=== PATIENT | male | born 1930 | race Caucasian/White ===

== ENCOUNTER 2016-10-22 10:28 | Inpatient (IN) | payer OTHER, MEDICAID ==
--- NOTE | 2016-10-22 10:53 | ED Physician Chart ---
Chief Complaint/HPI - Patient Information Date Seen:: 10/22/16 Time Seen:: 10:40 Chief Complaint:: GENERALIZED WEAKNESS AND NOW UNABLE TO WALK. History of Present Illness:: HPI: PATIENT HAD ONSET OF GENERALIZED WEAKNESS THAT HAS TAKEN HIM FROM AMBULATORY WITHOUT ASSISTANCE to unable to walk. The started yesterday. He has no prior history of weakness that comes on with exertion. He reports he has had a cough which is nonproductive and he denies hemoptysis. The patient had a pulse ox in the mid 80 when brought in. It responded nicely to supplemental oxygen into the high 90% range. the patient complains of mild respiratory distress prior to being placed on oxygen. he denies any chest pain or peripheral edema. No prior history of heart disease. Allergies:: Allergies Allergy/AdvReac Type Severity Reaction Status Date / Time beta blockers Allergy Unknown Uncoded 10/14/15 09:06 Review of Systems - Review of Systems General/Constitutional: No fever, No chills, Weakness, No diaphoresis, Loss of appetite Skin: No skin lesions, No rash Head: No headache, No light-headedness Eyes: No loss of vision, No pain, No diplopia ENT: No earache, No sore throat, No tinnitus, Other (NO TEETH) Neck: No neck pain, No swelling, No stiffness, No mass noted Cardio Vascular: No chest pain, No palpitations, orthopnea, No edema Pulmonary: SOB, Cough, No sputum, No wheezing, Other (NO HEMOPTYSIS) GI: No nausea, No vomiting, No diarrhea, No pain, No hematemesis G/U: No dysuria, No frequency, No hematuria, Other (NO URINARY RETENSION) Musculoskeletal: Bone or joint pain (the pt has intermittant pain in both legs but none at this time. Pain was present when pt able to walk.), No muscle pain Psychiatric: No prior psych history, No depression, Suicidal ideation Hematopoietic: No bruising, Lymphadenopathy Allergic/Immuno: No urticaria, No angioedema Neurological: No syncope, No focal symptoms, Weakness, No paresthesia, No headache, No seizure, Dizziness, No confusion, No vertigo Past Medical History - Past Medical History Past Medical History: HTN, Other (NO HX OF DIABETES, HEART DISEASE, OR ELEVATED CHOLESTEROL. 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 Head: Atraumatic Eyes: Lids, conjuctiva normal, PERRL, EOMI Other Eyes comments:: NO NYSTAGMUS. BILATERAL CATARACTS. SCLERA ANICTERIC. CONJUNTIVA PALE. Skin: No rash, No skin lesions, No ecchymosis, Well hydrated, No lymphadenopathy ENMT: External ears, nose nl, Nasal exam nl Other ENMT comments:: EDENTULOUS WITHOUT PLATES. UVULA DEVIATES TO THE RIGHT. NO PHARYNGITIS. Neck: Nontender, Full ROM w/o pain, No JVD, No nuchal rigidity, No bruit, No mass, No stridor Other Respiratory comments:: INCREASED RESPIRATORY EFFORT. DIFFUSE EXPIRATORY WHEEZES AND BIBASILAR RALES. Other Cardio Vascular comments:: IRREGULARLY IRREGULAR RHYTHM. NO MURMURS, GALLOPS OR RUBS. HEART TONES ARE OF GOOD QUALITY. STRONG PULSES IN ALL 4 EXTREMITIES. NO EDEMA IN LEGS OR ANKLES. GI: No tenderness/rebounding/guarding, No organomegaly, No hernia, Normal BS's, Nondistended, No mass/bruits, No McBurney tenderness Other GI comments:: RECTAL EXAM DIFFERED AT MY DISCRETION. Labs/Radiology/EKG Results - Lab Results Results: SINGLE VIEW AP CXR: MILD CARDIOMEGALY. BILATERAL PATCHY INFILTRATES. NO PNEUMOTHORAX. RADIOLOGY READ OUT CONSISTANT WITH CHF. Laboratory Tests 10/22/16 10/22/16 10/22/16 10:55 10:55 10:55 WBC 7.9 D RBC 3.43 L Hgb 7.1 L* Hct 23.1 L* D MCV 67.2 L MCH 20.8 L MCHC Differential 30.9 RDW 17.3 Plt Count 332 D MPV 9.0 Band Neutrophils % 2 Neutrophils (Manual) 58 Lymphocytes 15 L Monocytes 24 H Metamyelocytes 1 H Platelet Estimate ADEQUATE Platelet Morphology GIANT PLATELETS SEEN Polychromasia 1+ Anisocytosis 1+ Microcytosis 3+ RBC Morph Micro Appear ABNORMAL Sodium 141 Potassium 4.3 Chloride 105 Carbon Dioxide 25.0 Anion Gap 15.3 BUN 32 H Creatinine 1.3 Est GFR ( Amer) TNP Est GFR (Non-Af Amer) TNP BUN/Creatinine Ratio 24.6 Glucose 112 H Whole Bld Lactic Acid Calcium 9.3 Total Bilirubin 0.5 AST 21 ALT 11 Alkaline Phosphatase 26 L Troponin I 0.36 H* B-Natriuretic Peptide Total Protein 7.6 Albumin 3.7 L Globulin 3.9 Albumin/Globulin Ratio 1.0 10/22/16 10/22/16 10:55 10:55 WBC RBC Hgb Hct MCV MCH MCHC Differential RDW Plt Count MPV Band Neutrophils % Neutrophils (Manual) Lymphocytes Monocytes Metamyelocytes Platelet Estimate Platelet Morphology Polychromasia Anisocytosis Microcytosis RBC Morph Micro Appear Sodium Potassium Chloride Carbon Dioxide Anion Gap BUN Creatinine Est GFR ( Amer) Est GFR (Non-Af Amer) BUN/Creatinine Ratio Glucose Whole Bld Lactic Acid 1.51 Calcium Total Bilirubin AST ALT Alkaline Phosphatase Troponin I B-Natriuretic Peptide 1030.0 H Total Protein Albumin Globulin Albumin/Globulin Ratio LABORATORY INTERPRETATION: the CBC shows that the patient has a marked anemia. Hemoglobin level of 7.1. The whole blood lactic acid is within the normal range. The troponin is significantly elevated at 0.32. The BNP is markedly elevated at 1030. These findings are consistent with congestive heart failure. - EKG Interpretations EKG Time:: 10:42 Rhythm: Atrial fibrillation [place]: Right axis deviation Rate: 106 ventricular Comments:: wide QRS DURATION OF115. NORMAL QT INTERVAL. LBBB. POOR R-WAS PROGRESSION AND Q -WAVE IN V2. IMPRESSION Assessment - Assessment General Assessment: CASE SUMMARY: this 86-year-old male presents with generalized weakness that has taken him from being ambulatory to being unable to stand without assistance. Initially I thought the patient might have Guillain-Rogers syndrome. The initial pulse oximetry was in the mid-80 range and the patient was complaining of mild respiratory distress. This was addressed with supplemental oxygen and the pulse ox went up into the I high 90 range. On physical examination the patient appeared very pale and laboratory studies show the hemoglobin was in the seven range. The initial chest x-ray showed cardiomegaly and bilateral patchy infiltrates. Patient was given antibiotics thinking that he had bilateral pneumonia. When the radiology report came out it was read as consistent with congestive failure. Normal saline was canceled and a BNP and troponin level set off. The BNP was over 1000 and the component was markedly elevated also. EKG showed atrial fibrillation which the patient has not had in the past. DR. Smith, The patient's primary care physician was contacted and he will admit the patient to a telemetry bed for treatment of new onset atrial fibrillation, congestive failures, cardiac ischemia and severe anemia. Admitted in stable condition. MDM DDX GENERALIZED WEAKNESS: NOT GUILLAIN-BARRE SYNDROME based on the alternate diagnosis of cardiac ischemia and CHF. and severe anemia. NOT severe electrolyte disorder based on lab results. NOT CVA based on no focal neurologic deficit pattern. NOT severe sepsis based on vital signs and no fever or source of infection ED Septic Shock - . Is Septic Shock (SBP<90, OR Lactate>4 mmol\L) present?: No Reassessment (Disposition) - Reassessment Reassessment Condition:: Improved - Diagnosis Diagnosis:: SEVERE ANEMIA. NEW ONSET ATRIAL FIBRILLATION. CHF. CARDIAC ISCHEMIA - Aftercare/Follow up Instructions Aftercare/Follow-Up Instructions:: Counseled pt regarding lab results/diagnosis & need follow up - Patient Disposition Discharge/Transfer:: Acute Care w/in this hosp Accepting Physician:: DR. RAMON ED Discharge Plan - Patient Disposition Admit/Discharge/Transfer: Acute Care w/in this hosp Condition at Disposition: Stable
--- NOTE | 2016-10-22 11:17 | Diagnostic Imaging Report ---
Portable chest x-ray HISTORY: Shortness of breath The heart is enlarged. There is pulmonary vascular redistribution consistent cardiac captation. Hazy infiltrate noted in the left lung and right lower lobe regions. Findings are consistent with congestive heart failure and mild edema. Evidence of a small right pleural effusion. IMPRESSION: 1. Cardiomegaly with evidence of congestive heart failure and mild edema. Clinical correlation is needed.
[2016-10-22] MEDS ORDERED: Levofloxacin 750mg/150mL 750 MG/150 ML BAG IV ONE ×2 (11:18→12:31)
[2016-10-22] MEDS ORDERED: cefTRIAXone 2 GM in Sodium Chloride 0.9% 100 ML IV ONE (11:19)
[2016-10-22] MEDS ORDERED: SODIUM CHLORIDE 0.9% IV ONE (11:20)
[2016-10-22 11:21] LABS: ALKALINE PHOSPHATASE 26 U/L (34-104); ANION GAP 15.3 (7.0-16.0); BILIRUBIN,TOTAL 0.5 mg/dL (0.3-1.0); BUN - UREA NITROGEN 32 mg/dL (7-25); BUN/CREATININE RATIO 24.6; CALCIUM SERUM 9.3 mg/dL (8.6-10.3); CHLORIDE 105 mEq/L (98-107); CREATININE - SERUM 1.3 mg/dL (0.7-1.3); GLUCOSE 112 mg/dL (70-105); POTASSIUM SERUM 4.3 mEq/L (3.5-5.1); SGOT 21 U/L (13-39); SGPT/ALT 11 U/L (7-52); SODIUM SERUM 141 mEq/L (136-145)
[2016-10-22 11:22] LABS: HEMATOCRIT 23.1 % (39.0-49.0); HEMOGLOBIN 7.1 gm/dL (12.6-17.4); RED BLOOD COUNT 3.43 Mil/cmm (3.80-5.80); WHITE BLOOD COUNT 7.9 Th/cmm (4.8-10.8)
[2016-10-22 11:23] LABS: MEAN CELL VOLUME 67.2 fl (80-99); MEAN CORPUSCULAR HEMOGLOBIN 20.8 pg (27.0-31.0); MEAN CORPUSCULAR HGB CONC 30.9 pg (28.0-36.0); PLATELET COUNT 332 Th/cmm (150-400); RED CELL DISTRIBUTION WIDTH 17.3 % (11.5-20.0)
[2016-10-22 11:33] LABS: ANISOCYTOSIS 1+; BAND NEUTROPHILE 2 % (0-10); METAMYELOCYTE 1 % (0-0); MICROCYTOSIS 3+; NEUTROPHILS 58 % (40-80); PLATELET ESTIMATE ADEQUATE (NORMAL); PLATELET MORPHOLOGY GIANT PLATELETS SEEN (NORMAL); POLYCHROMASIA 1+; TOTAL CELLS COUNTED 100
[2016-10-22] MEDS ORDERED: Albuterol/Ipratropium Neb 3 ML AERS HHN ONE ×3 (13:25→21:50)
[2016-10-22] MEDS ORDERED: Aspirin 81mg Chewable Tab PO ONE (13:48)
[2016-10-22] MEDS ORDERED: Aspirin 81mg Chewable Tab ONE (14:00)
[2016-10-22] MEDS ORDERED: Pneumococcal Vaccine 0.5 mL Vial IM ONE (18:00)
[2016-10-22 19:20] LABS: HEMATOCRIT 23.1 % (40.0-54.0); RBC RETICULOCYTE COUNT 3.43 Mil/cmm
[2016-10-22 19:21] LABS: RETICULOCYTES % COUNTED 5.8 % (0.5-1.5)
[2016-10-22] MEDS: Levofloxacin 500mg/100mL 500 MG/100 ML BAG IV SCH (21:42)
[2016-10-22] MEDS ORDERED: Budesonide 0.5 Mg/2 mL Ud HHN ONE (21:53)
[2016-10-22] MEDS: Budesonide 0.5 Mg/2 mL Ud HHN SCH (22:32)
[2016-10-22] MEDS ORDERED: Albuterol/Ipratropium Neb 3 ML AERS HHN PRN (23:27)
--- NOTE | 2016-10-22 23:34 | Consultation ---
The patient of Dr. Ross. HISTORY AND PHYSICAL: This is an 86-year-old male patient who has been complaining of shortness of breath, cough with expectoration. Following this, patient was brought to the Emergency Room. The patient has elevated BNP level. Hence Cardiology consult was requested. PAST MEDICAL HISTORY: Atrial fibrillation, congestive heart failure, non-STEMI myocardial infarction, iron deficiency anemia, hypothyroidism, BPH, hypertension, hyperlipidemia. FAMILY HISTORY: Unremarkable. SOCIAL HISTORY: No history of smoking, alcohol abuse. ALLERGIES: No known allergies. PHYSICAL EXAMINATION: VITAL SIGNS: Blood pressure 130/80, pulse 88 irregular, respirations 28, temperature 98 year. LUNGS: Wheezing and rhonchi. HEART: Irregular rhythm. S1 irregular. S2, S3, S4. ABDOMEN: Soft. Liver, spleen not palpable. No hepatojugular ____. RECTAL: Prostate enlarged. EXTREMITIES: No pedal edema. ASSESSMENT: Atrial fibrillation, congestive heart failure, diastolic dysfunction, non-STEMI myocardial infarction, iron deficiency anemia, hypothyroidism, benign prostatic hypertrophy, hypertension, hyperlipidemia. PLAN: The patient to get echocardiogram, troponin level and monitor and start the patient on Lasix and Coreg. JOB# [id number]
--- NOTE | 2016-10-23 00:49 | Consultation ---
REASON FOR CONSULTATION: Help patient with hypoxemia. CONSULT NOTE: This is an 86-year-old gentleman living in a board and care relatively good health up to a couple of days ago. He was up and waling around without much of a problem. Subsequently, a day prior to coming to the hospital, the patient was extremely weak and started having some shortness of breath. Subsequently, symptom persisted and patient came to the hospital for further evaluation and necessary treatment. The patient had some productive sputum and nonproductive sputum, no complaints of wheezing or any fever or chills, fever prior to coming to the hospital. PAST MEDICAL HISTORY: History of hypertension, otherwise unremarkable. ALLERGIES: TO SOME FORM OF BETA GILDA. SMOKING HISTORY: Almost about 47-69-xssd-year smoker, has not smoked since 1989. PHYSICAL EXAMINATION: GENERAL: This is an elderly looking than stated age gentleman, awake, very slow, not in any acute distress. VITAL SIGNS: The patient's temperature is 99.4, blood pressure is 110/70, heart rate is 80, appears to be irregular. HEENT: Examination of the head is essentially unremarkable. Pupils appear to be equal and reacting to light. Conjunctivae are slightly pallor. Oral cavity shows edentulous with small oropharyngeal opening. NECK: No nodes in the neck could be palpated. CHEST: Shows occasional rhonchi with generalized diminished air entry. HEART: Regular. ABDOMEN: Soft, nontender. EXTREMITIES: Shows slight trace of peripheral edema, otherwise unremarkable. Chest x-ray shows fullness bilaterally. LABORATORY DATA: The patient's pertinent laboratory studies other studies shows hemoglobin 7.1, white count 7.9 and electrolytes are okay with BUN 32 and alkaline phosphatase is 26, troponin is 0.36. IMPRESSION: 1.The patient's shortness of breath, most likely this is an early congestive heart failure though ____ not sure whether that could be one of the major problem. 2. Other ____ weakness is secondary to gastrointestinal loss or blood loss. 3.Associated with possibly viral syndrome with questionable underlying chronic obstructive pulmonary disease. PLANS AND SUGGESTIONS: I agree with transfusion. We will give aggressive inhalation treatment, supplement O2. We will get a CT of chest for better evaluation and see how he does in the next 24-48 hours and go from there. JOB# [id number]
[2016-10-23 01:02] LABS: pH 7.32 (7.35-7.45)
[2016-10-23 01:03] LABS: ABG SOURCE art; ALLEN TEST P; BE(B) -0.4 mmol/L (-3.0-3.0); HCO3 26.3 mmol/L (20.0-26.0)
[2016-10-23 01:04] LABS: FIO2 40; MECH RATE 12; MECH VT 350
--- NOTE | 2016-10-23 04:13 | Admit Criteria Form ---
Admit Criteria Forms - Admit Criteria Diagnosis: TELEMETRY CARE Telemetry Admission Guidelines (Place 'X' for any and all applicable criteria): Admission to telemetry [A] may be indicated for ANY ONE of the following(1)(2)(3 )(4)(5): [X ]I. Cardiac disease, including ANY ONE of the following (9)(10)(11)(12)( 13): [ ]a) Postacute HI [ ]b) Low-risk patients with ST-segment elevation HI who have undergone successful percutaneous coronary intervention [ ]c) Unstable angina [ ]d) Suspected HI (until it is ruled out) [ ]e) Post cardiac surgery (first 48 to 72 hours unless complications occur) [X ]f) Acute arrhythmias (including significant tachycardia or bradycardia) [B] [ ]g) Firing of an implantable cardioverter defibrillator [C] [ ]h) Suspected pacemaker or implantable cardioverter defibrillator malfunction (10) [ ]i) New administration or adjustment of an antiarrhythmic drug [D ] [ ]j) Child admitted for acute congestive heart failure [ ]j) Long QT syndrome [ ]k) Advanced heart block (eg, second-degree Mobitz type II, third- degree heart block) [ ]l) Acute myocarditis or pericarditis [ ]m) Short-term (ambulatory or inpatient) monitoring after a cardiac procedure as indicated by ANY ONE of the following [E]: [ ]i) Electrophysiologic studies [ ]ii) Percutaneous coronary intervention with stent placement [ ]iii) Pacemaker placement with cardiac conduction defect [ ]iv) Implantable cardiac defibrillator placement [ ]II. Drug overdose or poisoning with substance that causes arrhythmias or QT prolongation (eg, phenothiazines, sympathomimetic agents, cyclic antidepressants, digitalis, antiarrhythmic drugs)(15) [ ]III. Short-term (ambulatory or inpatient) monitoring after therapeutic or diagnostic procedure requiring conscious sedation or anesthesia (eg, endoscopy, elective cardioversion) [ ]IV. Acute cerebrovascular even[F](18) [ ]V. Massive blood transfusion (eg, at least 10 units of packed red blood cells in 24 hours) [ ]. Variceal bleeding after endoscopy, sclerotherapy, or IV vasopressin [ ]VII. Uncorrected electrolyte abnormalities associated with an increased risk of dangerous arrhythmia [G]; examples include [ ]a) Hyperkalemia with attributable ECG changes [ ]b) Potassium greater than 6.5 mmol/L (mEq/L) in a patient without history of chronic renal disease [ ]c) Prolonged QT attributed to hypokalemia, hypomagnesemia, or hypocalcemia [ ]VIII.Unexplained syncope or other neurologic event suspected of being due to arrhythmia due to a finding that increases risk; examples include(19)(20)(21): [ ]a) High-risk ECG findings (eg, bifascicular block, bradycardia, abnormal QT interval, ventricular pre- excitation) [ ]b) History of previous syncope due to arrhythmia [ ]c) Abnormal ventricular function (eg, reduced ejection fraction ) [ ]d) Exertional or supine syncope [ ]e) Concerning syncope characteristics (eg, sudden loss of consciousness without prodrome) [ ]f) Family history of sudden [ ]g) Use of arrhythmogenic medication [ ]h) Suspected cardiac ischemia [ ]i) Known channelopathy (eg, long QT syndrome, Brugada syndrome, or catecholaminergic paroxysmal ventricular tachycardia) [ ]j) Known structural heart disease (eg, hypertrophic cardiomyopathy , severe valvular disease) [ ]k) Palpitations preceding syncope The original [employer] content created by [employer] has been revised. The portions of the content which have been revised are identified through the use of italic text or in bold, and [employer] has neither reviewed nor approved the modified material. All other unmodified content is copyright [employer]. Please see references footnoted in the original [employer] edition 2016 Admit Criteria Met?: Yes
[2016-10-23] MEDS ORDERED: Albuterol/Ipratropium Neb 3 ML AERS HHN SCH (07:00)
[2016-10-23 07:54] LABS: INR 1.29 (0.5-1.4)
[2016-10-23 07:58] LABS: ALB/GLOB RATIO 0.9 (1.0-1.8); BILIRUBIN,DIRECT 0.1 mg/dL (0.0-0.2); BILIRUBIN,TOTAL 0.7 mg/dL (0.3-1.0); MAGNESIUM 2.2 mg/dL (1.9-2.7)
[2016-10-23 08:01] LABS: ANION GAP 27.5 (7.0-16.0); BUN - UREA NITROGEN 35 mg/dL (7-25); CALCIUM SERUM 9.1 mg/dL (8.6-10.3); CARBON DIOXIDE 24.3 mEq/L (21.0-31.0); CHLORIDE 101 mEq/L (98-107); CREATININE - SERUM 1.4 mg/dL (0.7-1.3); GLUCOSE 125 mg/dL (70-105); POTASSIUM SERUM 4.8 mEq/L (3.5-5.1); SODIUM SERUM 148 mEq/L (136-145)
[2016-10-23 08:09] LABS: IRON SATURATION 2 % (15-55); TIBC (LCI) 541 ug/dL (250-450); UIBC 529 ug/dL (111-343)
[2016-10-23 08:24] LABS: MEAN CELL VOLUME 73.2 fl (80-99); MEAN CORPUSCULAR HEMOGLOBIN 23.5 pg (27.0-31.0); MEAN PLATELET VOLUME 9.1 fl; PLATELET COUNT 315 Th/cmm (150-400); RED BLOOD COUNT 4.39 Mil/cmm (3.80-5.80); RED CELL DISTRIBUTION WIDTH 20.3 % (11.5-20.0)
[2016-10-23 08:31] LABS: HEMATOCRIT 32.2 % (39.0-49.0); HEMOGLOBIN 10.3 gm/dL (12.6-17.4); WHITE BLOOD COUNT 11.6 Th/cmm (4.8-10.8)
[2016-10-23 09:15] LABS: ABG SOURCE Arterial; BE(B) -1.2 mmol/L (-3.0-3.0); HCO3 26.6 mmol/L (20.0-26.0); pH 7.27 (7.35-7.45)
[2016-10-23 09:16] LABS: CRITICAL VALUES REPORTED BY SH; FIO2 50; MECH RATE 12; MECH VT 350
[2016-10-23 10:15] LABS: FOLIC ACID >20.0 ng/mL (>3.0)
--- NOTE | 2016-10-23 10:30 | Diagnostic Imaging Report ---
Portable chest x-ray HISTORY: Shortness of breath Compared with the prior exam of October 22, 2016, the heart remains enlarged. Increasing density/infiltrate seen in the left lung. Small left pleural effusion cannot be excluded. Findings may be associated with congestive heart failure and edema. However, pneumonia cannot be excluded. Clinical correlation is needed. IMPRESSION: 1. Increasing density within the left lung that may be associated with congestive heart failure and edema. Pneumonia cannot be excluded. Clinical correlation is needed.
[2016-10-23 10:57] LABS: BAND NEUTROPHILE 2 % (0-10); NEUTROPHILS 91 % (40-80); TOTAL CELLS COUNTED 100
[2016-10-23 10:58] LABS: ANISOCYTOSIS 1+; CORRECTED WBC 11.2 Th/cmm; MICROCYTOSIS 3+; MYELOCYTE 3 %; PLATELET ESTIMATE ADEQUATE (NORMAL); PLATELET MORPHOLOGY GIANT PLATELETS SEEN (NORMAL); POLYCHROMASIA 1+
[2016-10-23] MEDS: Diltiazem 5 mg/mL 5mL Vial IVP PRN ×2 (11:01→16:39)
[2016-10-23] MEDS: Albuterol/Ipratropium Neb 3 ML AERS HHN SCH ×4 (12:03→23:01)
[2016-10-23 12:23] LABS: ABG SOURCE art; BE(B) 0.2 mmol/L (-3.0-3.0); HCO3 27.9 mmol/L (20.0-26.0); pH 7.29 (7.35-7.45)
[2016-10-23 12:24] LABS: CRITICAL VALUES REPORTED BY SH; FIO2 40; MECH RATE 12; MECH VT 450
[2016-10-23] MEDS ORDERED: Dextrose 5% 1,000 ML IV SCH (12:50)
[2016-10-23] MEDS: Budesonide 0.5 Mg/2 mL Ud HHN SCH (19:14)
[2016-10-23] MEDS: Levofloxacin 500mg/100mL 500 MG/100 ML BAG IV SCH (22:00)
[2016-10-24 04:21] LABS: URINE BILIRUBIN NEGATIVE (NEGATIVE); URINE BLOOD MODERATE (NEGATIVE); URINE COLOR YELLOW; URINE GLUCOSE (UA) NEGATIVE (NEGATIVE); URINE KETONE NEGATIVE (NEGATIVE); URINE PH 5.5; URINE PROTEIN 100 mg/dL (NEGATIVE); URINE UROBILINOGEN 0.2 E.U./dL (0.2 - 1.0)
[2016-10-24 04:22] LABS: URINE RBC 25-50 /hpf (0-5)
[2016-10-24 04:24] LABS: URINE BACTERIA MODERATE /hpf (NONE SEEN); URINE EPITHELIAL CELLS FEW /lpf (FEW)
[2016-10-24 05:40] LABS: HEMOGLOBIN 8.6 gm/dL (12.6-17.4); MEAN CELL VOLUME 73.1 fl (80-99); MEAN CORPUSCULAR HEMOGLOBIN 22.6 pg (27.0-31.0); MEAN PLATELET VOLUME 8.8 fl; PLATELET COUNT 278 Th/cmm (150-400); RED BLOOD COUNT 3.78 Mil/cmm (3.80-5.80); RED CELL DISTRIBUTION WIDTH 21.1 % (11.5-20.0); WHITE BLOOD COUNT 11.4 Th/cmm (4.8-10.8)
[2016-10-24] MEDS: Albuterol/Ipratropium Neb 3 ML AERS HHN SCH ×6 (05:47→22:22)
[2016-10-24 05:49] LABS: HEMATOCRIT 27.6 % (39.0-49.0)
[2016-10-24 06:02] LABS: ANION GAP 13.4 (7.0-16.0); BUN - UREA NITROGEN 50 mg/dL (7-25); BUN/CREATININE RATIO 27.8; CALCIUM SERUM 8.5 mg/dL (8.6-10.3); CARBON DIOXIDE 29.5 mEq/L (21.0-31.0); CHLORIDE 105 mEq/L (98-107); CREATININE - SERUM 1.8 mg/dL (0.7-1.3); GLUCOSE 78 mg/dL (70-105); POTASSIUM SERUM 3.9 mEq/L (3.5-5.1); SODIUM SERUM 144 mEq/L (136-145)
[2016-10-24 06:15] LABS: INR 1.44 (0.5-1.4); PROTHROMBIN TIME (TEST) 14.6 SECONDS (9.5-11.5)
[2016-10-24 07:31] LABS: TOTAL CELLS COUNTED 100
[2016-10-24 07:32] LABS: BAND NEUTROPHILE 3 % (0-10)
[2016-10-24 07:33] LABS: NEUTROPHILS 61 % (40-80); PLATELET ESTIMATE ADEQUATE (NORMAL)
[2016-10-24] MEDS: Budesonide 0.5 Mg/2 mL Ud HHN SCH ×2 (07:39→19:06)
[2016-10-24 08:41] LABS: HCO3 29.8 mmol/L (20.0-26.0); pH 7.42 (7.35-7.45)
[2016-10-24 08:42] LABS: ABG SOURCE Arterial; BE(B) 4.6 mmol/L (-3.0-3.0); CRITICAL VALUES REPORTED BY SH; FIO2 37
--- NOTE | 2016-10-24 09:28 | Diagnostic Imaging Report ---
Abdominal ultrasound HISTORY: Pain Exam is limited due to patient combativeness, lack of cooperation, and bowel gas. No definite focal hepatic lesions are seen. The gallbladder appears normal. No calculi are seen. No biliary dilatation. The pancreas cannot be seen due to bowel gas. The kidneys appear normal bilaterally. No other retroperitoneal or intra-abdominal abnormalities. IMPRESSION: 1. Limited exam 2. No definite abnormalities
[2016-10-24] MEDS: Diltiazem 5 mg/mL 5mL Vial IVP PRN ×2 (10:05→13:55)
[2016-10-24 12:11] LABS: T3 FREE 2.3 pg/mL (2.0-4.4); T4 FREE 1.42 ng/dL (0.82-1.77)
--- NOTE | 2016-10-24 15:26 | Consultation ---
GASTROINTESTINAL CONSULTATION REASON FOR CONSULTATION: Abdominal distention. HISTORY OF PRESENT ILLNESS: This is an 82-year-old male with past medical history significant for CHF, atrial fibrillation, hypothyroidism, hypertension, hyperlipidemia who presents with severe symptomatic anemia. The patient also noted to have elevation of the troponin on admission consistent with non-ST elevation RI. The patient had been having progressive shortness of breath and increasing weakness up to his admission. PAST MEDICAL HISTORY: As per HPI. ALLERGIES: BETA-BLOCKERS. SOCIAL HISTORY: Positive for tobacco. No alcohol, IV drugs. MEDICATIONS: Please see medication reconciliation form. FAMILY HISTORY: No family history of GI malignancies. REVIEW OF SYSTEMS: Per HPI. PHYSICAL EXAMINATION: VITAL SIGNS: Temperature is 97.7, pulse ____, respirations 40, blood pressure ____. GENERAL: No acute distress. CARDIOVASCULAR: Tachycardic. ABDOMEN: Soft. LABORATORY DATA: White count 7.9, hemoglobin 7.1, MCV is 67.2. ASSESSMENT AND PLAN: An 86-year-old male with multiple medical conditions including atrial fibrillation, congestive heart failure, hyperlipidemia, hypertension, with iron deficiency anemia and non-ST elevation myocardial infarction. Could consider eventual workup of the microcytic anemia with EGD and colonoscopy; however, will perform this when the patient is clinically stable from a cardiac standpoint given his non-ST elevation RI ____. Continue supportive care and transfusions as needed in the meantime. Thank you for this consult and allowing us to participate in the care of this patient. [facility]# [id number]
--- NOTE | 2016-10-24 15:59 | Progress Notes ---
PROBLEM LIST: 1. Acute respiratory failure. 2. Mild degree of congestive heart failure. 3. Questionable new developed pneumonia ____ side with persistent respiratory failure. SYMPTOMS: The patient is ____ sleeping, currently on a BiPAP 40% of oxygen and no respiratory distress. PHYSICAL EXAMINATION: RECORDED VITALS: Temperature is 96-97, pulse is 106, respirations in mid 30s to low 30s, saturation is 100% on 40% of oxygen. Currently on a BiPAP. ENT: Shows no new changes. CHEST: Shows diminished air entry with occasional rhonchi. HEART: Regular. ABDOMEN: Soft, nontender. LABORATORY DATA: The patient's chest x-ray shows slight worsening of the x-ray compared to yesterday with some more haziness not too sure whether this is pneumonia or loculated effusion. PLANS AND SUGGESTIONS: We will go ahead and continue current treatment and also we will give some more Lasix. Also, will follow through chest x-ray, etc. and see how he it is and go from there. JOB# [id number]
--- NOTE | 2016-10-24 19:24 | Cardiology ---
The patient of Dr. Ross M-MODE ECHOCARDIOGRAM: Mitral valve: Anterior leaflet of the mitral valve shows decreased excursion, EF velocity. Posterior leaflet of mitral valve shows decreased excursion. Left ventricular posterior wall shows normal thickness, decreased excursion. Interventricular septum showed normal thickness, decreased excursion, ejection fraction ____%. Left atrium enlarged 4.7 cm. Aortic root shows normal dimension, normal excursion of aortic leaflets. CONCLUSION: Cardiomyopathy, ejection fraction ____%. 2D ECHO: Long axis view shows enlarged left ventricular cavity with decreased ejection fraction. The mitral valve shows decreased excursion, left atrium enlarged aortic root shows normal dimension, normal excursion of aortic leaflets. Short axis view of mitral valve normal. Short axis view of aortic valve normal. Apical four chamber view shows enlarged left ventricular cavity with decreased ejection fraction. Left atrium enlarged. Right ventricular cavity, right atrium normal, no pericardial effusion. CONCLUSION: Cardiomyopathy, ejection fraction ____%, left atrial enlargement. Doppler study showed moderate mitral regurgitation, mild tricuspid regurgitation, mild aortic regurgitation. JOB# [id number]
[2016-10-24] MEDS: Levofloxacin 500mg/100mL 500 MG/100 ML BAG IV SCH (19:56)
--- NOTE | 2016-10-25 03:11 | Consultation ---
REASON FOR CONSULTATION: Anemia. HISTORY OF PRESENT ILLNESS: This is an 86-year-old male with past medical history significant for hypertension who presented to the hospital with complaints of shortness of breath and weakness. The patient was diagnosed on admission with a non-ST elevation UT as well as with atrial fibrillation likely congestive heart failure. The patient was also noted to be anemic with hemoglobin of 8.6, which was microcytic in nature. It is unclear if the patient has had any previous endoscopic evaluation. PAST MEDICAL HISTORY: Per HPI. PAST SURGICAL HISTORY: As per HPI. SOCIAL HISTORY: The patient has history of tobacco use. FAMILY HISTORY: No family history of GI malignancies. MEDICATIONS: Please see medication reconciliation form. REVIEW OF SYSTEMS: As per HPI. PHYSICAL EXAMINATION: VITAL SIGNS: Temperature is 98.6, pulse 97, respirations 20 and blood pressure 150/80. GENERAL: No acute distress. CARDIOVASCULAR: Irregularly irregular and tachycardic. ABDOMEN: Soft. LABORATORY DATA: White count 11.4, hemoglobin 8.6, MCV 73.1 and platelets are 278. INR is 1.44. ASSESSMENT AND PLAN: This is an 86-year-old male with history of hypertension, diagnosed on last admission with CHF, atrial fibrillation and non-ST elevation UT. The patient was also noted to have microcytic anemia. It is not clear if the patient has any prior endoscopic evaluation, could consider EGD and colonoscopy once the patient is stable from a cardiac standpoint; however, at this time, would not pursue these procedures given his non-ST elevation myocardial infarction, continue to follow and transfuse as needed, can pursue endoscopic workup once cleared by Cardiology and medically stable. Thank you for the consultation ____ participate in the care of this patient. JOB# [id number]
[2016-10-25] MEDS: Albuterol/Ipratropium Neb 3 ML AERS HHN SCH ×6 (05:41→23:26)
--- NOTE | 2016-10-25 06:21 | Progress Notes ---
PULMONARY PROGRESS NOTE PROBLEM LIST: 1. Acute respiratory failure. 2. Pneumoniae. 3. Congestive heart failure with bilateral effusion. SYMPTOMS: The patient is still agitated and restless was moved to Intensive Care Unit last night. PHYSICAL EXAMINATION: GENERAL: The patient is awake, confused and restless. VITAL SIGNS: On the patient's recorded vital signs temperature is 98, blood pressure is 118/60 and saturation is 96 on supplemental nasal O2. NECK: Veins not visualized. No nodes in the neck. CHEST: Findings show scattered wheezing with marked diminished air entry especially at the bases. HEART: Regular. ABDOMEN: Soft and nontender. EXTREMITIES: Shows no peripheral edema. LABORATORY DATA: The patient's white count is 11.4, hemoglobin dropped to 8.6 and the patient's coagulation profile is okay. ABG: His pO2 was 65 on 30% of inspired oxygen. Creatinine is 1.8 and BUN is 50. The patient's BNP is 1810. ASSESSMENT: The patient is clinically stable, has ____ congestive heart failure based on clinical and radiographical ____ including CAT scan, which shows some bilateral effusion. PLANS AND SUGGESTIONS: We will continue other cardiac treatment as per Dr. Suki Slade. We will continue p.r.n. BiPAP; otherwise, nasal O2 during the daytime and we will follow through on the ____ in the next day or so and go from there. JOB# [id number]
[2016-10-25] MEDS: Budesonide 0.5 Mg/2 mL Ud HHN SCH ×2 (07:49→19:54)
[2016-10-25 08:02] LABS: ANION GAP 12.7 (7.0-16.0); BUN - UREA NITROGEN 52 mg/dL (7-25); BUN/CREATININE RATIO 34.7; CALCIUM SERUM 9.2 mg/dL (8.6-10.3); CARBON DIOXIDE 33.7 mEq/L (21.0-31.0); CHLORIDE 102 mEq/L (98-107); CREATININE - SERUM 1.5 mg/dL (0.7-1.3); GLUCOSE 93 mg/dL (70-105); POTASSIUM SERUM 3.4 mEq/L (3.5-5.1); SODIUM SERUM 145 mEq/L (136-145)
[2016-10-25 08:03] LABS: INR 1.48 (0.5-1.4)
--- NOTE | 2016-10-25 10:54 | Diagnostic Imaging Report ---
Portable chest x-ray HISTORY: Shortness of breath Compared with prior exam of October 24, 2016, the heart remains enlarged. Decreased infiltrate within the left lung. Question small left pleural effusion. IMPRESSION: 1. Decreased infiltrate within the left lung 2. Question small left pleural effusion 3. Persistent cardiomegaly
--- NOTE | 2016-10-25 11:55 | Diagnostic Imaging Report ---
CT scan of the chest without intravenous contrast HISTORY: Shortness of breath Total DLP equals 317 CTDI equals 7.6 Axial sections were obtained from a level above the clavicles down to level below the diaphragm. The heart size appears generous. Coronary artery and atherosclerotic vascular calcification noted. There is mild dilatation of the ascending aorta with a maximum diameter of approximately 4.0 cm. Normal-sized lymph nodes are seen within the mediastinum. There are moderate bilateral pleural effusions. There are diffuse bilateral pulmonary infiltrates. There appears to be somewhat more focal parenchymal density in the lower lobes consistent with consolidation and/or atelectasis. Diffuse degenerative changes are seen to the spine. IMPRESSION: 1. Moderate bilateral pleural effusions along with diffuse bilateral infiltrates and somewhat more focal parenchymal changes consistent with consolidation and/or atelectasis within the lower lobes. 2. Cardiomegaly with atherosclerotic and coronary artery vascular calcification 3. Dilatation of the ascending aorta (maximum diameter equals 4.0 cm)
--- NOTE | 2016-10-25 12:00 | Diagnostic Imaging Report ---
Portable chest x-ray HISTORY: Shortness of breath Compared with prior exam of 10/23/2016, persistent cardiomegaly. Evidence of bilateral pleural effusions along with hazy infiltrate throughout much of the left lung. Findings may be associated with congestive heart failure. Pneumonia cannot be excluded. Clinical correlation is needed. IMPRESSION: 1. Persistent cardiomegaly with evidence of bilateral pleural effusions and hazy infiltrate within the left lung. The findings may be associated with congestive heart failure. Underlying pneumonia cannot be excluded. Clinical correlation is needed.
[2016-10-25] MEDS: Levofloxacin 500mg/100mL 500 MG/100 ML BAG IV SCH (21:38)
[2016-10-25] MEDS: Diltiazem 5 mg/mL 5mL Vial IVP PRN (23:09)
--- NOTE | 2016-10-25 23:25 | Progress Notes ---
PULMONARY PROGRESS NOTE: PROBLEM LIST: 1. Acute respiratory failure. 2. Congestive heart failure. 3. Possible pneumonia. 4. Cardiac arrhythmia with obstructive sleep apnea syndrome. SYMPTOMS: Nil, periodically agitated, restless, moaning, but no respiratory distress. PHYSICAL EXAMINATION: VITAL SIGNS: Temperature is 97.2, blood pressure 123/67, saturation 100% on 36% of oxygen by oxygen nasal cannula. NECK: Neck veins not visualized. CHEST: Shows diminished air entry with occasional rhonchi. HEART: Regular. ABDOMEN: Soft, nontender. LABORATORY DATA: The patient's INR is 1.48. Electrolytes are okay with potassium 3.4, BUN is 52. Chest x-ray shows significant improvement. ASSESSMENT: The patient clinically overall doing much better, though psychologically still not significantly changed. PLANS AND SUGGESTIONS: We will go ahead and decrease FIO2. We will repeat chest x-ray, consider nutritional if he is not able to eat orally, may consider temporarily NG tube and continue rest of other treatment. [facility]# [id number]
[2016-10-26] MEDS: Hydrocodone/APAP 5mg/325mg Tab PO PRN ×2 (02:51→21:04)
[2016-10-26] MEDS: Albuterol/Ipratropium Neb 3 ML AERS HHN SCH ×5 (03:51→19:19)
[2016-10-26 05:17] LABS: HEMATOCRIT 29.8 % (39.0-49.0); HEMOGLOBIN 9.5 gm/dL (12.6-17.4); MEAN CELL VOLUME 72.6 fl (80-99); MEAN CORPUSCULAR HGB CONC 31.7 pg (28.0-36.0); MEAN PLATELET VOLUME 9.5 fl; PLATELET COUNT 271 Th/cmm (150-400); RED BLOOD COUNT 4.11 Mil/cmm (3.80-5.80)
[2016-10-26 05:32] LABS: INR 1.53 (0.5-1.4); PROTHROMBIN TIME (TEST) 15.5 SECONDS (9.5-11.5)
[2016-10-26 05:46] LABS: ANION GAP 10.5 (7.0-16.0); BUN - UREA NITROGEN 45 mg/dL (7-25); BUN/CREATININE RATIO 32.1; CALCIUM SERUM 9.4 mg/dL (8.6-10.3); CARBON DIOXIDE 33.2 mEq/L (21.0-31.0); CHLORIDE 98 mEq/L (98-107); CREATININE - SERUM 1.4 mg/dL (0.7-1.3); GLUCOSE 116 mg/dL (70-105); POTASSIUM SERUM 3.7 mEq/L (3.5-5.1); SODIUM SERUM 138 mEq/L (136-145)
[2016-10-26 06:01] LABS: BAND NEUTROPHILE 2 % (0-10); EOSINOPHIL 2 % (0-5); NEUTROPHILS 55 % (40-80); TOTAL CELLS COUNTED 100
[2016-10-26 06:02] LABS: ANISOCYTOSIS 1+; MICROCYTOSIS 2+; PLATELET ESTIMATE ADEQUATE (NORMAL); PLATELET MORPHOLOGY GIANT PLATELETS SEEN (NORMAL)
[2016-10-26] MEDS: Budesonide 0.5 Mg/2 mL Ud HHN SCH ×2 (07:45→19:19)
--- NOTE | 2016-10-26 09:18 | Diagnostic Imaging Report ---
CHEST X-RAY: AP view INDICATION: CHF COMPARISON: 10/25/2016 FINDINGS: Persistent congestive changes are seen with left effusion. Mild cardiomegaly is noted. IMPRESSION: Persistent congestive changes and left effusion. Pneumonia of the left lower lung zone cannot be excluded. Mild Cardiomegaly.
--- NOTE | 2016-10-26 11:02 | History & Physical ---
CHIEF COMPLAINT: Confusion and dyspnea. HISTORY OF PRESENT ILLNESS: This is an 86-year-old male who lives at [facility] where they found he was quite obtunded and was having respiratory distress at the facility; 911 was called and transferred to the Emergency Room at the [facility] where he has been evaluated by Cardiology and Pulmonary and Psychiatry and is now in ICU for further evaluation and treatment. PAST MEDICAL HISTORY: The patient has had the following conditions in the past. 1. 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 2. COPD. 3. Hypothyroidism. 4. Advancing degenerative joint disease with osteoarthritis and osteoporosis and hyperlipidemia. FAMILY HISTORY: Devoid of any ____ diseases. He has had the usual childhood diseases. He has had his immunizations in the time they were needed. ALLERGIES: He denies any known allergies. SOCIAL HISTORY: No history of smoking, alcohol or drug habituation. I do not have a medication list at the present time. REVIEW OF SYSTEMS: Cough, congestion, dyspnea and air hunger some chest pain. No abdominal discomfort, no bowel or urinary problems. The patient is alert, but confused, not in touch with reality. PHYSICAL EXAMINATION: GENERAL: The patient appears weak and tired and pale. He is about 6 feet in height, weighs about 165 pounds, pulse 70, respirations about 26-28. VITAL SIGNS: Temperature is 100, blood pressure is 150/90. HEENT: Skull symmetrical. No alopecia. No masses. No abnormal pulsations or bruit. SKIN: Dry with no dermatosis. No petechiae or ecchymosis. No jaundice or discoloration. HEENT: The eyes are sluggish but equal and reactive to light reflex. Nonicteric sclerae. No corneal opacities. No conjunctival injection or arteriosclerotic change of the fundi. Patent ear canals. Drums are intact. No abnormalities of the outer or inner ear canals. NECK: Supple. Thyroid is not enlarged. Trachea is midline. Bilateral palpable carotids, no bruits. NODES: No supraclavicular venous engorgement. No lymphadenopathy. CHEST: Symmetrical. No gynecomastia. LUNGS: Show decreased breath sounds, but few scattered rales and basal rales. CARDIOVASCULAR: Regular heart rate and rhythm. No cardiac area of dullness. Large point of maximal intensity in fifth intercostal space inside the left midclavicular line. ABDOMEN: Benign with physiologic. No organomegaly, no rebound, guarding or tenderness. No ascites or shifting dullness. Peristalsis audible on auscultation. Very uncooperative, unable to do an external genitalia and prostate and rectal exam. EXTREMITIES: Shows weak pulses palpable. No pedal edema. Negative Homans sign. NEUROLOGICAL: Cranial nerves are intact. No sensory or motor deficits. No pathologic reflexes. ADMITTING DIAGNOSIS: 1. Apparently atherosclerotic and hypertensive cardiovascular heart disease with congestive heart failure. 2. Elevated troponins level in the Emergency Room, possible early acute myocardial infarction, acute respiratory distress syndrome secondary to congestive heart failure. SECONDARY DIAGNOSES: Hypothyroidism, anemia, hyperlipidemia. PLAN: To admit the patient with appropriate consults that have been done and I will follow with him. JOB# [id number]
[2016-10-26] MEDS: Meropenem 500 MG in Sodium Chloride 0.9% 100 ML IV SCH (15:49)
--- NOTE | 2016-10-26 23:50 | Consultation ---
Consult Note - Consult Note Service Date: 10/26/16 Consult Note: PHYSICIAN Consultation Note: Date of Admission: 10/22/16 Purpose of Consultation: ESBL E coli UTI. Chief Complaint: Confusion and dyspnea. History of Present Illness: Patient CASSIE TORREZ was admitted to location Intensive Care Unit with NEW ONSET CHF. patient is 86 y male with history of CAD, Cardiomyopathy, COPD, Hypothyroisism admitted the hospital for dyspnea and confusion. On initial evaluation, his temperature was 98.2 degree F and WBC Count was 7,900. Patient was found to have Afib with RVR so, he was transferred to the ICU, and receiving Cardizem drip. He was found to have pyuria and bacteriuria, and started on levaquin. Urine culture grew ESBL E coli and ID consult was called for antibiotic management. The antibiotic, had been changed to meropenem. Diagnoses IRON DEFICIENCY ANEMIA, UNSPECIFIED (10/22/16) HYPOTHYROIDISM, UNSPECIFIED (10/22/16) HYPERLIPIDEMIA, UNSPECIFIED (10/22/16) ESSENTIAL (PRIMARY) HYPERTENSION (10/22/16) NON-ST ELEVATION (NSTEMI) MYOCARDIAL INFARCTION (10/22/16) UNSPECIFIED ATRIAL FIBRILLATION (10/22/16) ACUTE ON CHRONIC DIASTOLIC (CONGESTIVE) HEART FAILURE (10/22/16) PNEUMONIA, UNSPECIFIED ORGANISM (10/22/16) ACUTE RESPIRATORY FAILURE, UNSP W HYPOXIA OR HYPERCAPNIA (10/22/16) BENIGN PROSTATIC HYPERPLASIA WITHOUT LOWER URINRY TRACT SYMP (10/22/16) SHORTNESS OF BREATH (10/22/16) Allergies Allergy/AdvReac Type Severity Reaction Status Date / Time Beta-Blockers Allergy Verified 10/22/16 14:58 (Beta-Adrenergic Bloc Vital Signs Temp 98.7 F 10/26/16 22:00 Pulse 102 10/26/16 23:30 Resp 23 10/26/16 23:00 BP 98/56 10/26/16 23:30 Pulse Ox 98 10/26/16 23:00 Intake & Output 10/26/16 10/26/16 10/27/16 06:59 18:59 06:59 Intake Total 800 940 50 Output Total 1400 1240 Balance -600 -300 50 Intake: Intake, IV Amount 100 Diltiazem 125 mg In 0 Dextrose 5% 100 ml @ 10 MG/HR 10 mls/hr IV C [facility] Rx#:[id number] Meropenem 500 mg In 100 Sodium Chloride 0.9% 100 ml @ 100 mls/hr IV Q8H [facility] Rx#:[id number] Oral 800 840 50 Output: Urine 1400 1240 Other: # Bowel Movements 0 Laboratory Results - last 24 hr 10/22/16 10/26/16 10/26/16 16:55 04:40 04:40 WBC RBC Hgb Hct MCV MCH MCHC Differential RDW Plt Count MPV Band Neutrophils % Neutrophils (Manual) Lymphocytes Monocytes Eosinophils Platelet Estimate Platelet Morphology Anisocytosis Microcytosis RBC Morph Micro Appear PT 15.5 H INR 1.53 H Sodium 138 Potassium 3.7 Chloride 98 Carbon Dioxide 33.2 H Anion Gap 10.5 BUN 45 H Creatinine 1.4 H Est GFR ( Amer) TNP Est GFR (Non-Af Amer) TNP BUN/Creatinine Ratio 32.1 Glucose 116 H Calcium 9.4 B-Natriuretic Peptide Blood Type A POSITIVE Antibody Screen NEGATIVE 10/26/16 10/26/16 10/26/16 04:40 04:40 14:15 WBC 12.0 H RBC 4.11 Hgb 9.5 L Hct 29.8 L MCV 72.6 L MCH 23.0 L MCHC Differential 31.7 RDW 22.0 H Plt Count 271 MPV 9.5 Band Neutrophils % 2 Neutrophils (Manual) 55 Lymphocytes 25 Monocytes 16 H Eosinophils 2 Platelet Estimate ADEQUATE Platelet Morphology GIANT PLATELETS SEEN Anisocytosis 1+ Microcytosis 2+ RBC Morph Micro Appear ABNORMAL PT INR Sodium Potassium Chloride Carbon Dioxide Anion Gap BUN Creatinine Est GFR ( Amer) Est GFR (Non-Af Amer) BUN/Creatinine Ratio Glucose Calcium B-Natriuretic Peptide 695.0 H 1100.0 H Blood Type Antibody Screen Home Medication Medication Instructions Recorded Type Amlodipine Besylate 5 mg PO HS 04/30/15 History Aspirin [Aspirin Adult Low 81 mg PO DAILY 04/30/15 History Strength] Diphenhydramine HCL [Benadryl] 50 mg PO BID PRN 04/30/15 History Docusate Sodium [Colace] 250 mg PO BID 04/30/15 History Doxepin HCl [Silenor] 6 mg PO HS 04/30/15 History Fenofibrate,Micronized 134 mg PO DAILY 04/30/15 History [Fenofibrate] Finasteride [Proscar*] 5 mg PO DAILY 04/30/15 History Folic Acid [Folate*] 1 mg PO DAILY 04/30/15 History Ibandronate Sodium [Boniva] 150 mg PO QMONTH 04/30/15 History Levothyroxine [Synthroid] 0.15 mg PO DAILY 04/30/15 History Loratadine [Claritin 24Hr] 10 mg PO DAILY 04/30/15 History Lorazepam [Ativan] 2 mg PO HS 04/30/15 History Olanzapine 5 mg PO HS 04/30/15 History Omeprazole 40 mg PO DAILY 04/30/15 History Potassium Chloride [Potassium 10 meq PO BID 04/30/15 History Chloride ER] Pravastatin Sodium [Pravastatin*] 2 tab PO HS 04/30/15 History Tamsulosin [Flomax] 0.4 mg PO DAILY 04/30/15 History Thiamine [Vitamin B1] 1 tab PO DAILY 04/30/15 History cloNIDine HCl [Catapres] 0.2 mg PO BID 04/30/15 History Apixaban [Eliquis] 2.5 mg PO BID 10/22/16 History Trazodone HCl [Oleptro] 300 mg PO HS 10/22/16 History Current Medications Generic Name Dose Route Start Last Admin Trade Name Freq PRN Reason Stop Dose Admin Acetaminophen/Hydrocodone Bitart 1 tab 10/22/16 22:15 10/26/16 21:04 Isabel 5mg/325mg PO 12/21/16 22:14 1 tab Q4H PRN Administration PAIN / RESTLESSNESS Albuterol/Ipratropium 3 ml 10/22/16 23:27 10/23/16 03:05 Duoneb [facility] 12/21/16 23:29 3 ml Q2H PRN Administration Respiratory Distress Albuterol/Ipratropium 3 ml 10/23/16 03:00 10/26/16 19:19 Duoneb Neb [facility] 12/22/16 02:59 3 ml Q4HRT CHELLE Administration Amiodarone HCl 200 mg 10/26/16 21:00 10/26/16 22:02 Cordarone PO 12/25/16 20:59 200 mg DAILY [facility] Administration Budesonide 0.5 mg 10/23/16 07:00 10/26/16 19:19 Pulmicort [facility] 12/22/16 06:59 0.5 mg BIDRT [facility] Administration Digoxin 0.25 mg 10/26/16 09:00 10/26/16 09:30 Lanoxin IVP 12/25/16 08:59 0.25 mg DAILY [facility] Administration Diltiazem HCl 20 mg 10/23/16 10:50 10/25/16 23:09 Cardizem IVP 12/22/16 10:49 20 mg Q4HR PRN Administration HR >120 Furosemide 40 mg 10/23/16 17:00 10/26/16 17:58 Lasix IVP 12/22/16 16:59 40 mg BID [facility] Administration Meropenem 500 mg/ Sodium 100 mls @ 100 mls/hr 10/26/16 15:00 10/26/16 16:30 Chloride IV 12/25/16 14:59 Infused Q8H [facility] Infusion Diltiazem HCl 125 mg/ Dextrose 125 mls @ 15 mls/hr 10/26/16 17:45 IV 12/25/16 17:44 TITR [facility] Lorazepam 1 mg 10/23/16 13:56 10/26/16 13:35 Ativan IVP 12/22/16 13:55 1 mg Q4HR PRN Administration Agitation Protocol Tamsulosin HCl 0.4 mg 10/22/16 21:00 10/26/16 20:04 Flomax PO 12/21/16 20:59 0.4 mg HS CHELLE Administration Warfarin Sodium 1 ea 10/22/16 15:59 Coumadin Per Pharmacy 12/21/16 15:58 PRN PRN RX MONITORING Protocol Warfarin Sodium 5 mg 10/26/16 13:00 10/26/16 13:35 Coumadin PO 10/28/16 12:59 5 mg C [facility] Administration Review of Systems: A 12 point ROS was reviewed with the pertinent positive and negatives noted in the HPI. Unable to provide meaningful hispory because of confusion. Past Medical History CAD, HTN, Hypothyroidism, Cardiomyopathy. Dementia. Social History Smoking Status Unknown if ever smoked Family Medical History Noncontributory. Physical Exam: General: WN WD. No Acute Distress HEENT: EYES: EOMI Bilaterally, PERRLA Bilaterally. Head: normocephalic, atraumatic on inspection. Oral cavity: moist , pink tongue. Cardio: +S1/S2 Auscultated, RRR, no murmurs/rubs/gallops noted Respiratory: Clear to Auscultate Bilaterally Abdominal: Soft, Nondistended, Nontender to palpation x 4 quadrants Genital/Urinary: Moreno in place. Extremities: No Edema noted in the lower extremities Neurological: Confused, cranial Nerves II-XII intact bilaterally, Gait Steady, No Focal Deficits noted. Assessment/Plan: 1. ESBL E coli UTI. 2. Leukocytosis. 3. Afib with RPR./ SVT. 4. HTN. 5. Cardiomyopathy. 6. Dementia. 7. Anemia. Recommendations: Change levaquin to meropenem. Check RPR, Vit B12 and TSH. Thank you Dr Alvarez for involving me in taking care of this patient. Signed, Lacho Slade M.D. 10/26/[id number]
[2016-10-27] MEDS: Meropenem 500 MG in Sodium Chloride 0.9% 100 ML IV SCH ×4 (00:51→23:33)
[2016-10-27] MEDS: Albuterol/Ipratropium Neb 3 ML AERS HHN SCH ×6 (03:44→23:12)
--- NOTE | 2016-10-27 04:32 | Consultation ---
REASON FOR CONSULTATION: Psyche evaluation. HISTORY OF PRESENT ILLNESS: This is an 86-year-old male living at [facility]. He was obtunded with respiratory distress, transferred to the ER and noted to have UTI, E. coli, possible ESBL. On [id number], the patient poorly oriented, confused _, wandering___ around and restless. PAST PSYCHIATRIC HISTORY: Unclear at this time. It is unclear whether or not he has a dementia diagnosis. PAST MEDICAL HISTORY: As noted. SOCIAL HISTORY: The patient is currently residing at [facility]. Beyond this it is unclear. He is not talking to me. He is too confused. MEDICATIONS: Reviewed. MENTAL STATUS EXAMINATION: Appearance is stated age, some eye contact, restless, confused and disoriented. It is unclear if he is having any perceptual disturbances. No suicidal gestures and no homicidal gestures. Poor concentration. Insight and judgment diminished x 2. PROVISIONAL DIAGNOSIS: The patient appears delirious, rule out dementia and psychosis, unspecified. RECOMMENDATIONS AND PLAN: We will initiate as needed medications likely Seroquel and Ativan and Haldol IM. We will continue to monitor and follow up. Treatment goal is to keep the patient calm. JOB# [id number] ABDIRIZAK
--- NOTE | 2016-10-27 06:27 | Progress Notes ---
PULMONARY PROGRESS NOTE PROBLEM LIST: 1. Acute respiratory failure. 2. Acute pneumonia. 3. Congestive heart failure, improved with cardiac arrhythmia. SYMPTOMS: Nil. Morning periodically. No respiratory distress, etc. Quite frequent agitation. PHYSICAL EXAMINATION: VITAL SIGNS: Temperature is 98.5. Heart rate is anywhere from 110-120, but does go high when he gets agitated and the patient's saturation is 99% on 4 liters. ENT: Shows no new changes. CHEST: Shows diminished air entry with occasional rhonchi. HEART: Regular. ABDOMEN: Soft and nontender. LABORATORY DATA: White count is 12,000, hemoglobin 9.5 and the patient's electrolytes are okay with creatinine of 4.5. Chest x-ray shows slight haziness in the left base. ASSESSMENT: The patient is clinically much better radiographically, still quite psychologically down with moaning and groaning and restless. PLANS AND SUGGESTIONS: Discussed care with the nursing staff. We will continue current treatment and we will repeat other studies in next few days including BNP and go from there. JOB# [id number]
[2016-10-27] MEDS: Budesonide 0.5 Mg/2 mL Ud HHN SCH ×2 (07:12→19:08)
[2016-10-27 07:58] LABS: HEMATOCRIT 30.3 % (39.0-49.0); HEMOGLOBIN 9.4 gm/dL (12.6-17.4); MEAN CELL VOLUME 72.1 fl (80-99); MEAN CORPUSCULAR HEMOGLOBIN 22.4 pg (27.0-31.0); MEAN CORPUSCULAR HGB CONC 31.1 pg (28.0-36.0); MEAN PLATELET VOLUME 8.7 fl; PLATELET COUNT 277 Th/cmm (150-400); RED CELL DISTRIBUTION WIDTH 22.3 % (11.5-20.0); WHITE BLOOD COUNT 8.9 Th/cmm (4.8-10.8)
[2016-10-27 08:20] LABS: ALKALINE PHOSPHATASE 32 U/L (34-104); ANION GAP 10.7 (7.0-16.0); BILIRUBIN,TOTAL 0.8 mg/dL (0.3-1.0); BUN - UREA NITROGEN 38 mg/dL (7-25); BUN/CREATININE RATIO 29.2; CALCIUM SERUM 9.7 mg/dL (8.6-10.3); CHLORIDE 96 mEq/L (98-107); CREATININE - SERUM 1.3 mg/dL (0.7-1.3); GLUCOSE 117 mg/dL (70-105); POTASSIUM SERUM 3.7 mEq/L (3.5-5.1); SGOT 46 U/L (13-39); SGPT/ALT 53 U/L (7-52); SODIUM SERUM 139 mEq/L (136-145)
[2016-10-27 09:22] LABS: ANISOCYTOSIS 1+; BAND NEUTROPHILE 3 % (0-10); EOSINOPHIL 4 % (0-5); MICROCYTOSIS 3+; NEUTROPHILS 51 % (40-80); PLATELET ESTIMATE ADEQUATE (NORMAL); PLATELET MORPHOLOGY GIANT PLATELETS SEEN (NORMAL); POLYCHROMASIA 1+; TOTAL CELLS COUNTED 100
[2016-10-27] MEDS ORDERED: Magnesium Hydroxide (MOM) 30 mL UDC PO ONE (14:18)
[2016-10-27] MEDS ORDERED: Probiotic Screen MC PRN (16:18)
--- NOTE | 2016-10-27 19:06 | General Progress Note ---
Subjective - Review of Systems Service Date: 10/27/16 Subjective: EVENTS NOTED. VIELKA SOME ORAL DIET. Objective - Results Result Diagrams: 10/27/16 07:30 10/27/16 07:30 Recent Labs: Laboratory Last Values WBC 8.9 Th/cmm (4.8-10.8) D 10/27/16 07:30 Corrected WBC (auto) 11.2 Th/cmm 10/23/16 06:52 RBC 4.20 Mil/cmm (3.80-5.80) 10/27/16 07:30 Hgb 9.4 gm/dL (12.6-17.4) L 10/27/16 07:30 Hct 30.3 % (39.0-49.0) L 10/27/16 07:30 MCV 72.1 fl (80-99) L 10/27/16 07:30 MCH 22.4 pg (27.0-31.0) L 10/27/16 07:30 MCHC Differential 31.1 pg (28.0-36.0) 10/27/16 07:30 RDW 22.3 % (11.5-20.0) H 10/27/16 07:30 Plt Count 277 Th/cmm (150-400) 10/27/16 07:30 MPV 8.7 fl 10/27/16 07:30 Band Neutrophils % 3 % (0-10) 10/27/16 07:30 Neutrophils (Manual) 51 % (40-80) 10/27/16 07:30 Lymphocytes 19 % (20-50) L 10/27/16 07:30 Monocytes 23 % (2-10) H 10/27/16 07:30 Eosinophils 4 % (0-5) 10/27/16 07:30 Metamyelocytes 1 % (0-0) H 10/22/16 10:55 Myelocytes 3 % 10/23/16 06:52 Nucleated RBCs 4.0 % (0-0) H 10/23/16 06:52 Platelet Estimate ADEQUATE (NORMAL) 10/27/16 07:30 Platelet Morphology GIANT PLATELETS SEEN (NORMAL) 10/27/16 07:30 Polychromasia 1+ 10/27/16 07:30 Anisocytosis 1+ 10/27/16 07:30 Microcytosis 3+ 10/27/16 07:30 RBC Morph Micro Appear ABNORMAL (NORMAL) 10/27/16 07:30 Total Retics Counted 5.8 % (0.5-1.5) H 10/22/16 10:55 Absolute Retic 198.9 Th/cmm 10/22/16 10:55 Corrected Retic Count 3.0 % (0.5-1.5) H 10/22/16 10:55 PT 15.5 SECONDS (9.5-11.5) H 10/26/16 04:40 INR 1.53 (0.5-1.4) H 10/26/16 04:40 Specimen Source Arterial 10/24/16 08:30 Sample Site RB 10/24/16 08:30 pH 7.42 (7.35-7.45) 10/24/16 08:30 pCO2 46.0 mmHg (35.0-45.0) H 10/24/16 08:30 pO2 65.0 mmHg (80.0-100.0) L 10/24/16 08:30 HCO3 29.8 mmol/L (20.0-26.0) H 10/24/16 08:30 Base Excess 4.6 mmol/L (-3.0-3.0) H 10/24/16 08:30 O2 Saturation 93.0 % (92.0-100.0) 10/24/16 08:30 Danish Test NA 10/24/16 08:30 Vent Rate NA 10/24/16 08:30 Inspired O2 37 10/24/16 08:30 Tidal Volume NA 10/24/16 08:30 PEEP NA 10/24/16 08:30 Pressure (ins/psv/peep) NA 10/24/16 08:30 Critical Value SH 10/24/16 08:30 Sodium 139 mEq/L (136-145) 10/27/16 07:30 Potassium 3.7 mEq/L (3.5-5.1) 10/27/16 07:30 Chloride 96 mEq/L (98-107) L 10/27/16 07:30 Carbon Dioxide 36.0 mEq/L (21.0-31.0) H 10/27/16 07:30 Anion Gap 10.7 (7.0-16.0) 10/27/16 07:30 BUN 38 mg/dL (7-25) H 10/27/16 07:30 Creatinine 1.3 mg/dL (0.7-1.3) 10/27/16 07:30 Est GFR ( Amer) TNP 10/27/16 07:30 Est GFR (Non-Af Amer) TNP 10/27/16 07:30 BUN/Creatinine Ratio 29.2 10/27/16 07:30 Glucose 117 mg/dL (70-105) H 10/27/16 07:30 Whole Bld Lactic Acid 1.51 mmol/L (0.60-2.00) 10/22/16 10:55 Calcium 9.7 mg/dL (8.6-10.3) 10/27/16 07:30 Magnesium 2.2 mg/dL (1.9-2.7) 10/23/16 06:52 Iron 12 ug/dL (38-169) L 10/22/16 10:55 TIBC 541 ug/dL (250-450) H 10/22/16 10:55 Iron Saturation 2 % (15-55) L 10/22/16 10:55 Unsaturated IBC 529 ug/dL (111-343) H 10/22/16 10:55 Total Bilirubin 0.8 mg/dL (0.3-1.0) 10/27/16 07:30 Direct Bilirubin 0.10 mg/dL (0.0-0.2) 10/23/16 06:52 AST 46 U/L (13-39) H 10/27/16 07:30 ALT 53 U/L (7-52) H 10/27/16 07:30 Alkaline Phosphatase 32 U/L (34-104) L 10/27/16 07:30 Ammonia 35 umol/L (16-53) 10/25/16 07:20 Troponin I 0.63 ng/mL (0.01-0.05) H* 10/23/16 11:00 B-Natriuretic Peptide 1010.0 pg/mL (5.0-100.0) H 10/27/16 07:30 Total Protein 6.9 gm/dL (6.0-8.3) 10/27/16 07:30 Albumin 3.4 gm/dL (4.2-5.5) L 10/27/16 07:30 Globulin 3.5 gm/dL 10/27/16 07:30 Albumin/Globulin Ratio 1.0 (1.0-1.8) 10/27/16 07:30 Vitamin B12 648 pg/mL (211-946) 10/22/16 10:55 Folic Acid >20.0 ng/mL (>3.0) 10/22/16 10:55 Free T4 1.42 ng/dL (0.82-1.77) 10/23/16 06:52 Free T3 2.3 pg/mL (2.0-4.4) 10/23/16 06:52 TSH 3.23 uIU/ml (0.34-5.60) 10/27/16 07:30 Urine Source RANDOM 10/24/16 03:28 Urine Color YELLOW 10/24/16 03:28 Urine Clarity HAZY (CLEAR) 10/24/16 03:28 Urine pH 5.5 10/24/16 03:28 Ur Specific [place] 1.025 (1.005-1.030) 10/24/16 03:28 Urine Protein 100 mg/dL (NEGATIVE) H 10/24/16 03:28 Urine Glucose (UA) NEGATIVE mg/dL (NEGATIVE) 10/24/16 03:28 Urine Ketones NEGATIVE mg/dL (NEGATIVE) 10/24/16 03:28 Urine Blood MODERATE (NEGATIVE) H 10/24/16 03:28 Urine Nitrate NEGATIVE (NEGATIVE) 10/24/16 03:28 Urine Bilirubin NEGATIVE (NEGATIVE) 10/24/16 03:28 Urine Urobilinogen 0.2 E.U./dL (0.2 - 1.0) 10/24/16 03:28 Ur Leukocyte Esterase TRACE (NEGATIVE) H 10/24/16 03:28 Urine RBC 25-50 /hpf (0-5) H 10/24/16 03:28 Urine WBC 10-25 /hpf (0-5) H 10/24/16 03:28 Ur Epithelial Cells FEW /lpf (FEW) 10/24/16 03:28 Urine Bacteria MODERATE /hpf (NONE SEEN) 10/24/16 03:28 Influenza A (Rapid) NEG FOR INF A 10/24/16 06:30 Influenza B (Rapid) NEG FOR INF B 10/24/16 06:30 Blood Type A POSITIVE 10/22/16 16:55 Antibody Screen NEGATIVE 10/22/16 16:55 Crossmatch See Detail 10/22/16 16:55 - Physical Exam Vitals and I&O: Vital Signs Temp 98.4 F 10/27/16 16:00 Pulse 132 10/27/16 16:00 Resp 16 10/27/16 16:00 BP 98/67 10/27/16 16:00 Pulse Ox 98 10/27/16 16:00 Intake & Output 10/27/16 10/27/16 10/28/16 06:59 18:59 06:59 Intake Total 450 100 Output Total 1200 Balance -750 100 Weight (lbs) 85.275 kg Intake: Intake, IV Amount 100 100 Meropenem 500 mg In 100 100 Sodium Chloride 0.9% 100 ml @ 100 mls/hr IV Q8H [facility] Rx#:[id number] Oral 350 Output: Urine 1200 Other: # Bowel Movements 0 Active Medications: Current Medications Acetaminophen (Tylenol 650mg/20.3ml Suspension) 650 mg PO Q4H PRN PRN Reason: Abdominal Pain Stop: 12/26/16 14:24 Acetaminophen/Hydrocodone Bitart ([place] 5mg/325mg) 1 tab PO Q4H PRN PRN Reason: PAIN / RESTLESSNESS Stop: 12/21/16 22:14 Last Admin: 10/26/16 21:04 Dose: 1 tab Albuterol/Ipratropium (Duoneb Neb) 3 ml HHN Q2H PRN PRN Reason: Respiratory Distress Stop: 12/21/16 23:29 Last Admin: 10/23/16 03:05 Dose: 3 ml Albuterol/Ipratropium (Duoneb Neb) 3 ml HHN Q4HRT [facility] Stop: 12/22/16 02:59 Last Admin: 10/27/16 15:53 Dose: 3 ml Amiodarone HCl (Cordarone) 200 mg PO DAILY [facility] Stop: 12/25/16 20:59 Last Admin: 10/27/16 14:08 Dose: 200 mg Budesonide (Pulmicort) 0.5 mg HHN BIDRT [facility] Stop: 12/22/16 06:59 Last Admin: 10/27/16 07:12 Dose: 0.5 mg Digoxin (Lanoxin) 0.25 mg IVP DAILY [facility] Stop: 12/25/16 08:59 Last Admin: 10/27/16 09:15 Dose: 0.25 mg Diltiazem HCl (Cardizem) 20 mg IVP Q4HR PRN PRN Reason: HR >120 Stop: 12/22/16 10:49 Last Admin: 10/25/16 23:09 Dose: 20 mg Furosemide (Lasix) 40 mg IVP BID [facility] Stop: 12/22/16 16:59 Last Admin: 10/27/16 09:48 Dose: 40 mg Meropenem 500 mg/ Sodium (Chloride) 100 mls @ 100 mls/hr IV Q8H [facility] Stop: 12/25/16 14:59 Last Admin: 10/27/16 15:30 Dose: 100 mls/hr Diltiazem HCl 125 mg/ Dextrose 125 mls @ 4.8 mls/hr IV TITR [facility] Stop: 12/26/16 15:14 Lactobacillus Rhamnosus (Culturelle) 1 each PO DAILY [facility] Stop: 12/27/16 08:59 Lorazepam (Ativan) 1 mg IVP Q4HR PRN; Protocol PRN Reason: Agitation Stop: 12/22/16 13:55 Last Admin: 10/27/16 13:00 Dose: 1 mg Miscellaneous (Probiotic Screen) 1 ea PRN PRN PRN Reason: PROTOCOL Stop: 12/26/16 16:17 Tamsulosin HCl (Flomax) 0.4 mg PO HS [facility] Stop: 12/21/16 20:59 Last Admin: 10/26/16 20:04 Dose: 0.4 mg Warfarin Sodium (Coumadin Per Pharmacy) 1 [facility] PRN PRN; Protocol PRN Reason: RX MONITORING Stop: 12/21/16 15:58 Warfarin Sodium (Coumadin) 5 mg PO C [facility] Stop: 10/28/16 12:59 Last Admin: 10/27/16 14:07 Dose: 5 mg General: No acute distress HEENT: Atraumatic Neck: Supple Cardiovascular: Other (IRIR) Lungs: Other (OCC RHONCHI) Abdomen: Bowel sounds, Soft - Procedures Procedures: Procedures Procedure Code Date REPAIR FACE SKIN, EXTERNAL APPROACH [id number] 10/14/15 RPR S/N/AX/GEN/TRNK 2.5CM/< 55529 10/14/15 Assessment/Plan - Problem List Patient Problems: All Active Problems BILATERAL LEG PAIN AND UNABLE TO AMBULAT (Acute) Lumbar spine strain (Acute) - Assessment Assessment: 1. ANEMIA, MULTIFACTORIAL. 2. A FIB WITH RVR. 3. CHF. 4. NSTEMI. - Plan Plan: 1. CONSERVATIVE NON-ENDOSCOPIC MANAGEMENT OF ANEMIA. TOO SICK FOR ENDOSCOPIC WORKUP AT THIS POINT. CONSIDER EGD AND/OR COLONOSCOPY FOR THERAPEUTIC PURPOSES ONLY. 2. MONITOR HGB; TRANSFUSE PRN. 3. PUREED DIET VIELKA. 4. PER CARDS/PULM/ID.
[2016-10-27] MEDS: Hydrocodone/APAP 5mg/325mg Tab PO PRN (20:20)
--- NOTE | 2016-10-27 23:46 | Infectious Disease Prog Note ---
Infectious Disease Subjective - Review of Systems Service Date: 10/27/16 Subjective: No Change. Infectious Disease Objective - Results Result Diagrams: 10/27/16 07:30 10/27/16 07:30 Recent Labs: Laboratory Last Values WBC 8.9 Th/cmm (4.8-10.8) D 10/27/16 07:30 Corrected WBC (auto) 11.2 Th/cmm 10/23/16 06:52 RBC 4.20 Mil/cmm (3.80-5.80) 10/27/16 07:30 Hgb 9.4 gm/dL (12.6-17.4) L 10/27/16 07:30 Hct 30.3 % (39.0-49.0) L 10/27/16 07:30 MCV 72.1 fl (80-99) L 10/27/16 07:30 MCH 22.4 pg (27.0-31.0) L 10/27/16 07:30 MCHC Differential 31.1 pg (28.0-36.0) 10/27/16 07:30 RDW 22.3 % (11.5-20.0) H 10/27/16 07:30 Plt Count 277 Th/cmm (150-400) 10/27/16 07:30 MPV 8.7 fl 10/27/16 07:30 Band Neutrophils % 3 % (0-10) 10/27/16 07:30 Neutrophils (Manual) 51 % (40-80) 10/27/16 07:30 Lymphocytes 19 % (20-50) L 10/27/16 07:30 Monocytes 23 % (2-10) H 10/27/16 07:30 Eosinophils 4 % (0-5) 10/27/16 07:30 Metamyelocytes 1 % (0-0) H 10/22/16 10:55 Myelocytes 3 % 10/23/16 06:52 Nucleated RBCs 4.0 % (0-0) H 10/23/16 06:52 Platelet Estimate ADEQUATE (NORMAL) 10/27/16 07:30 Platelet Morphology GIANT PLATELETS SEEN (NORMAL) 10/27/16 07:30 Polychromasia 1+ 10/27/16 07:30 Anisocytosis 1+ 10/27/16 07:30 Microcytosis 3+ 10/27/16 07:30 RBC Morph Micro Appear ABNORMAL (NORMAL) 10/27/16 07:30 Total Retics Counted 5.8 % (0.5-1.5) H 10/22/16 10:55 Absolute Retic 198.9 Th/cmm 10/22/16 10:55 Corrected Retic Count 3.0 % (0.5-1.5) H 10/22/16 10:55 PT 15.5 SECONDS (9.5-11.5) H 10/26/16 04:40 INR 1.53 (0.5-1.4) H 10/26/16 04:40 Specimen Source Arterial 10/24/16 08:30 Sample Site RB 10/24/16 08:30 pH 7.42 (7.35-7.45) 10/24/16 08:30 pCO2 46.0 mmHg (35.0-45.0) H 10/24/16 08:30 pO2 65.0 mmHg (80.0-100.0) L 10/24/16 08:30 HCO3 29.8 mmol/L (20.0-26.0) H 10/24/16 08:30 Base Excess 4.6 mmol/L (-3.0-3.0) H 10/24/16 08:30 O2 Saturation 93.0 % (92.0-100.0) 10/24/16 08:30 Danish Test NA 10/24/16 08:30 Vent Rate NA 10/24/16 08:30 Inspired O2 37 10/24/16 08:30 Tidal Volume NA 10/24/16 08:30 PEEP NA 10/24/16 08:30 Pressure (ins/psv/peep) NA 10/24/16 08:30 Critical Value SH 10/24/16 08:30 Sodium 139 mEq/L (136-145) 10/27/16 07:30 Potassium 3.7 mEq/L (3.5-5.1) 10/27/16 07:30 Chloride 96 mEq/L (98-107) L 10/27/16 07:30 Carbon Dioxide 36.0 mEq/L (21.0-31.0) H 10/27/16 07:30 Anion Gap 10.7 (7.0-16.0) 10/27/16 07:30 BUN 38 mg/dL (7-25) H 10/27/16 07:30 Creatinine 1.3 mg/dL (0.7-1.3) 10/27/16 07:30 Est GFR ( Amer) TNP 10/27/16 07:30 Est GFR (Non-Af Amer) TNP 10/27/16 07:30 BUN/Creatinine Ratio 29.2 10/27/16 07:30 Glucose 117 mg/dL (70-105) H 10/27/16 07:30 Whole Bld Lactic Acid 1.51 mmol/L (0.60-2.00) 10/22/16 10:55 Calcium 9.7 mg/dL (8.6-10.3) 10/27/16 07:30 Magnesium 2.2 mg/dL (1.9-2.7) 10/23/16 06:52 Iron 12 ug/dL (38-169) L 10/22/16 10:55 TIBC 541 ug/dL (250-450) H 10/22/16 10:55 Iron Saturation 2 % (15-55) L 10/22/16 10:55 Unsaturated IBC 529 ug/dL (111-343) H 10/22/16 10:55 Total Bilirubin 0.8 mg/dL (0.3-1.0) 10/27/16 07:30 Direct Bilirubin 0.10 mg/dL (0.0-0.2) 10/23/16 06:52 AST 46 U/L (13-39) H 10/27/16 07:30 ALT 53 U/L (7-52) H 10/27/16 07:30 Alkaline Phosphatase 32 U/L (34-104) L 10/27/16 07:30 Ammonia 35 umol/L (16-53) 10/25/16 07:20 Troponin I 0.63 ng/mL (0.01-0.05) H* 10/23/16 11:00 B-Natriuretic Peptide 1010.0 pg/mL (5.0-100.0) H 10/27/16 07:30 Total Protein 6.9 gm/dL (6.0-8.3) 10/27/16 07:30 Albumin 3.4 gm/dL (4.2-5.5) L 10/27/16 07:30 Globulin 3.5 gm/dL 10/27/16 07:30 Albumin/Globulin Ratio 1.0 (1.0-1.8) 10/27/16 07:30 Vitamin B12 648 pg/mL (211-946) 10/22/16 10:55 Folic Acid >20.0 ng/mL (>3.0) 10/22/16 10:55 Free T4 1.42 ng/dL (0.82-1.77) 10/23/16 06:52 Free T3 2.3 pg/mL (2.0-4.4) 10/23/16 06:52 TSH 3.23 uIU/ml (0.34-5.60) 10/27/16 07:30 Urine Source RANDOM 10/24/16 03:28 Urine Color YELLOW 10/24/16 03:28 Urine Clarity HAZY (CLEAR) 10/24/16 03:28 Urine pH 5.5 10/24/16 03:28 Ur Specific [place] 1.025 (1.005-1.030) 10/24/16 03:28 Urine Protein 100 mg/dL (NEGATIVE) H 10/24/16 03:28 Urine Glucose (UA) NEGATIVE mg/dL (NEGATIVE) 10/24/16 03:28 Urine Ketones NEGATIVE mg/dL (NEGATIVE) 10/24/16 03:28 Urine Blood MODERATE (NEGATIVE) H 10/24/16 03:28 Urine Nitrate NEGATIVE (NEGATIVE) 10/24/16 03:28 Urine Bilirubin NEGATIVE (NEGATIVE) 10/24/16 03:28 Urine Urobilinogen 0.2 E.U./dL (0.2 - 1.0) 10/24/16 03:28 Ur Leukocyte Esterase TRACE (NEGATIVE) H 10/24/16 03:28 Urine RBC 25-50 /hpf (0-5) H 10/24/16 03:28 Urine WBC 10-25 /hpf (0-5) H 10/24/16 03:28 Ur Epithelial Cells FEW /lpf (FEW) 10/24/16 03:28 Urine Bacteria MODERATE /hpf (NONE SEEN) 10/24/16 03:28 Influenza A (Rapid) NEG FOR INF A 10/24/16 06:30 Influenza B (Rapid) NEG FOR INF B 10/24/16 06:30 Blood Type A POSITIVE 10/22/16 16:55 Antibody Screen NEGATIVE 10/22/16 16:55 Crossmatch See Detail 10/22/16 16:55 - Physical Exam Vitals and I&O: Vital Signs Temp 97.9 F 10/27/16 20:00 Pulse 103 10/27/16 23:14 Resp 18 10/27/16 23:14 BP 132/68 10/27/16 21:30 Pulse Ox 100 10/27/16 23:14 Intake & Output 10/27/16 10/27/16 10/28/16 06:59 18:59 06:59 Intake Total 450 900 200 Output Total 1200 840 Balance -750 60 200 Weight (lbs) 85.275 kg Intake: Intake, IV Amount 100 200 Meropenem 500 mg In 100 200 Sodium Chloride 0.9% 100 ml @ 100 mls/hr IV Q8H [facility] Rx#:[id number] Oral 350 700 200 Output: Urine 1200 840 Other: # Bowel Movements 0 0 Active Medications: Current Medications Acetaminophen (Tylenol 650mg/20.3ml Suspension) 650 mg PO Q4H PRN PRN Reason: Abdominal Pain Stop: 12/26/16 14:24 Acetaminophen/Hydrocodone Bitart ([place] 5mg/325mg) 1 tab PO Q4H PRN PRN Reason: PAIN / RESTLESSNESS Stop: 12/21/16 22:14 Last Admin: 10/27/16 20:20 Dose: 1 tab Albuterol/Ipratropium (Duoneb Neb) 3 ml HHN Q2H PRN PRN Reason: Respiratory Distress Stop: 12/21/16 23:29 Last Admin: 10/23/16 03:05 Dose: 3 ml Albuterol/Ipratropium (Duoneb Neb) 3 ml HHN Q4HRT [facility] Stop: 12/22/16 02:59 Last Admin: 10/27/16 23:12 Dose: 3 ml Amiodarone HCl (Cordarone) 200 mg PO DAILY [facility] Stop: 12/25/16 20:59 Last Admin: 10/27/16 14:08 Dose: 200 mg Budesonide (Pulmicort) 0.5 mg HHN BIDRT [facility] Stop: 12/22/16 06:59 Last Admin: 10/27/16 19:08 Dose: 0.5 mg Digoxin (Lanoxin) 0.25 mg IVP DAILY [facility] Stop: 12/25/16 08:59 Last Admin: 10/27/16 09:15 Dose: 0.25 mg Diltiazem HCl (Cardizem) 20 mg IVP Q4HR PRN PRN Reason: HR >120 Stop: 12/22/16 10:49 Last Admin: 10/25/16 23:09 Dose: 20 mg Furosemide (Lasix) 40 mg IVP BID [facility] Stop: 12/22/16 16:59 Last Admin: 10/27/16 09:48 Dose: 40 mg Meropenem 500 mg/ Sodium (Chloride) 100 mls @ 100 mls/hr IV Q8H [facility] Stop: 12/25/16 14:59 Last Admin: 10/27/16 23:33 Dose: 100 mls/hr Diltiazem HCl 125 mg/ Dextrose 125 mls @ 4.8 mls/hr IV TITR [facility] Stop: 12/26/16 15:14 Last Admin: 10/27/16 14:00 Dose: 4.8 mls/hr Lactobacillus Rhamnosus (Culturelle) 1 each PO DAILY [facility] Stop: 12/27/16 08:59 Lorazepam (Ativan) 1 mg IVP Q4HR PRN; Protocol PRN Reason: Agitation Stop: 12/22/16 13:55 Last Admin: 10/27/16 13:00 Dose: 1 mg Miscellaneous (Probiotic Screen) 1 [facility] PRN PRN PRN Reason: PROTOCOL Stop: 12/26/16 16:17 Tamsulosin HCl (Flomax) 0.4 mg PO HS [facility] Stop: 12/21/16 20:59 Last Admin: 10/27/16 20:20 Dose: 0.4 mg Warfarin Sodium (Coumadin Per Pharmacy) 1 [facility] PRN PRN; Protocol PRN Reason: RX MONITORING Stop: 12/21/16 15:58 Warfarin Sodium (Coumadin) 5 mg PO C [facility] Stop: 10/28/16 12:59 Last Admin: 10/27/16 14:07 Dose: 5 mg General: no acute distress, cachectic HEENT: atraumatic, normocephalic, PERRLA, EOMI Neck: supple Cardiovascular: S1S2, regular Lungs: clear to auscultation bilaterally, clear to percussion Abdomen: soft, no tender, no distended Extremities: no cyanosis, no clubbing, no edema Neurological: awake, alert Skin: intact - Procedures Procedures: Procedures Procedure Code Date REPAIR FACE SKIN, EXTERNAL APPROACH [id number] 10/14/15 RPR S/N/AX/GEN/TRNK 2.5CM/< 06313 10/14/15 Infectious Disease Assmt/Plan - Problem List Patient Problems: All Active Problems BILATERAL LEG PAIN AND UNABLE TO AMBULAT (Acute) Lumbar spine strain (Acute) - Assessment Assessment: 1. UTI- ESBL E coli. 2. SVT , afib. 3. Dementia. 4. HTN. - Plan Plan: Continue Meropenem.
[2016-10-28] MEDS: Albuterol/Ipratropium Neb 3 ML AERS HHN SCH ×6 (02:37→23:00)
--- NOTE | 2016-10-28 04:55 | Progress Notes ---
PROBLEM LIST: 1. Acute respiratory failure, improved. 2. Congestive heart failure, improved. 3. Questionable pneumonia, left basal area. 4. Psychosis. SYMPTOMS: Nil, just sedated, still periodically restless, agitation, no specific ____ finding, heart rates goes up and down. PHYSICAL EXAMINATION: VITAL SIGNS: The patient's saturation is 100% on 2 liters. CHEST: Shows diminished air entry with occasional rhonchi. HEART: Regular. ABDOMEN: Soft, nontender. EXTREMITIES: Shows no peripheral edema. LABORATORY DATA: White count is 8000, hemoglobin is 9.4 and electrolytes are okay with BUN is 38. ASSESSMENT: The patient clinically appears improving, still elevated BNP. The patient clinically overall better, improving. PLANS AND SUGGESTIONS: We will go ahead and continue current treatment or follow through other labs in next day or two and go from there. JOB# [id number]
[2016-10-28] MEDS: Budesonide 0.5 Mg/2 mL Ud HHN SCH ×2 (06:53→20:01)
[2016-10-28] MEDS: Meropenem 500 MG in Sodium Chloride 0.9% 100 ML IV SCH ×3 (06:58→23:21)
[2016-10-28 07:14] LABS: ANION GAP 9.5 (7.0-16.0); BUN - UREA NITROGEN 35 mg/dL (7-25); BUN/CREATININE RATIO 29.2; CALCIUM SERUM 9.8 mg/dL (8.6-10.3); CARBON DIOXIDE 36.3 mEq/L (21.0-31.0); CHLORIDE 95 mEq/L (98-107); CREATININE - SERUM 1.2 mg/dL (0.7-1.3); GLUCOSE 108 mg/dL (70-105); POTASSIUM SERUM 3.8 mEq/L (3.5-5.1); SODIUM SERUM 137 mEq/L (136-145)
[2016-10-28 08:01] LABS: INR 1.66 (0.5-1.4); PROTHROMBIN TIME (TEST) 16.9 SECONDS (9.5-11.5)
--- NOTE | 2016-10-28 12:04 | Infectious Disease Prog Note ---
Infectious Disease Subjective - Review of Systems Service Date: 10/28/16 Subjective: No Change. Infectious Disease Objective - Results Result Diagrams: 10/27/16 07:30 10/28/16 06:24 Recent Labs: Laboratory Last Values WBC 8.9 Th/cmm (4.8-10.8) D 10/27/16 07:30 Corrected WBC (auto) 11.2 Th/cmm 10/23/16 06:52 RBC 4.20 Mil/cmm (3.80-5.80) 10/27/16 07:30 Hgb 9.4 gm/dL (12.6-17.4) L 10/27/16 07:30 Plasma Hgb 7.8 mg/dL (0.0-4.9) H 10/23/16 06:52 Hct 30.3 % (39.0-49.0) L 10/27/16 07:30 MCV 72.1 fl (80-99) L 10/27/16 07:30 MCH 22.4 pg (27.0-31.0) L 10/27/16 07:30 MCHC Differential 31.1 pg (28.0-36.0) 10/27/16 07:30 RDW 22.3 % (11.5-20.0) H 10/27/16 07:30 Plt Count 277 Th/cmm (150-400) 10/27/16 07:30 MPV 8.7 fl 10/27/16 07:30 Band Neutrophils % 3 % (0-10) 10/27/16 07:30 Neutrophils (Manual) 51 % (40-80) 10/27/16 07:30 Lymphocytes 19 % (20-50) L 10/27/16 07:30 Monocytes 23 % (2-10) H 10/27/16 07:30 Eosinophils 4 % (0-5) 10/27/16 07:30 Metamyelocytes 1 % (0-0) H 10/22/16 10:55 Myelocytes 3 % 10/23/16 06:52 Nucleated RBCs 4.0 % (0-0) H 10/23/16 06:52 Platelet Estimate ADEQUATE (NORMAL) 10/27/16 07:30 Platelet Morphology GIANT PLATELETS SEEN (NORMAL) 10/27/16 07:30 Polychromasia 1+ 10/27/16 07:30 Anisocytosis 1+ 10/27/16 07:30 Microcytosis 3+ 10/27/16 07:30 RBC Morph Micro Appear ABNORMAL (NORMAL) 10/27/16 07:30 Total Retics Counted 5.8 % (0.5-1.5) H 10/22/16 10:55 Absolute Retic 198.9 Th/cmm 10/22/16 10:55 Corrected Retic Count 3.0 % (0.5-1.5) H 10/22/16 10:55 PT 16.9 SECONDS (9.5-11.5) H 10/28/16 06:24 INR 1.66 (0.5-1.4) H 10/28/16 06:24 Specimen Source Arterial 10/24/16 08:30 Sample Site RB 10/24/16 08:30 pH 7.42 (7.35-7.45) 10/24/16 08:30 pCO2 46.0 mmHg (35.0-45.0) H 10/24/16 08:30 pO2 65.0 mmHg (80.0-100.0) L 10/24/16 08:30 HCO3 29.8 mmol/L (20.0-26.0) H 10/24/16 08:30 Base Excess 4.6 mmol/L (-3.0-3.0) H 10/24/16 08:30 O2 Saturation 93.0 % (92.0-100.0) 10/24/16 08:30 Danish Test NA 10/24/16 08:30 Vent Rate NA 10/24/16 08:30 Inspired O2 37 10/24/16 08:30 Tidal Volume NA 10/24/16 08:30 PEEP NA 10/24/16 08:30 Pressure (ins/psv/peep) NA 10/24/16 08:30 Critical Value SH 10/24/16 08:30 Sodium 137 mEq/L (136-145) 10/28/16 06:24 Potassium 3.8 mEq/L (3.5-5.1) 10/28/16 06:24 Chloride 95 mEq/L (98-107) L 10/28/16 06:24 Carbon Dioxide 36.3 mEq/L (21.0-31.0) H 10/28/16 06:24 Anion Gap 9.5 (7.0-16.0) 10/28/16 06:24 BUN 35 mg/dL (7-25) H 10/28/16 06:24 Creatinine 1.2 mg/dL (0.7-1.3) 10/28/16 06:24 Est GFR ( Amer) TNP 10/28/16 06:24 Est GFR (Non-Af Amer) TNP 10/28/16 06:24 BUN/Creatinine Ratio 29.2 10/28/16 06:24 Glucose 108 mg/dL (70-105) H 10/28/16 06:24 Whole Bld Lactic Acid 1.51 mmol/L (0.60-2.00) 10/22/16 10:55 Calcium 9.8 mg/dL (8.6-10.3) 10/28/16 06:24 Magnesium 2.2 mg/dL (1.9-2.7) 10/23/16 06:52 Iron 12 ug/dL (38-169) L 10/22/16 10:55 TIBC 541 ug/dL (250-450) H 10/22/16 10:55 Iron Saturation 2 % (15-55) L 10/22/16 10:55 Unsaturated IBC 529 ug/dL (111-343) H 10/22/16 10:55 Total Bilirubin 0.8 mg/dL (0.3-1.0) 10/27/16 07:30 Direct Bilirubin 0.10 mg/dL (0.0-0.2) 10/23/16 06:52 AST 46 U/L (13-39) H 10/27/16 07:30 ALT 53 U/L (7-52) H 10/27/16 07:30 Alkaline Phosphatase 32 U/L (34-104) L 10/27/16 07:30 Ammonia 35 umol/L (16-53) 10/25/16 07:20 Troponin I 0.63 ng/mL (0.01-0.05) H* 10/23/16 11:00 B-Natriuretic Peptide 1010.0 pg/mL (5.0-100.0) H 10/27/16 07:30 Total Protein 6.9 gm/dL (6.0-8.3) 10/27/16 07:30 Albumin 3.4 gm/dL (4.2-5.5) L 10/27/16 07:30 Globulin 3.5 gm/dL 10/27/16 07:30 Albumin/Globulin Ratio 1.0 (1.0-1.8) 10/27/16 07:30 Vitamin B12 922 pg/mL (211-946) 10/27/16 07:30 Folic Acid >20.0 ng/mL (>3.0) 10/22/16 10:55 Free T4 1.42 ng/dL (0.82-1.77) 10/23/16 06:52 Free T3 2.3 pg/mL (2.0-4.4) 10/23/16 06:52 TSH 3.23 uIU/ml (0.34-5.60) 10/27/16 07:30 Urine Source RANDOM 10/24/16 03:28 Urine Color YELLOW 10/24/16 03:28 Urine Clarity HAZY (CLEAR) 10/24/16 03:28 Urine pH 5.5 10/24/16 03:28 Ur Specific [place] 1.025 (1.005-1.030) 10/24/16 03:28 Urine Protein 100 mg/dL (NEGATIVE) H 10/24/16 03:28 Urine Glucose (UA) NEGATIVE mg/dL (NEGATIVE) 10/24/16 03:28 Urine Ketones NEGATIVE mg/dL (NEGATIVE) 10/24/16 03:28 Urine Blood MODERATE (NEGATIVE) H 10/24/16 03:28 Urine Nitrate NEGATIVE (NEGATIVE) 10/24/16 03:28 Urine Bilirubin NEGATIVE (NEGATIVE) 10/24/16 03:28 Urine Urobilinogen 0.2 E.U./dL (0.2 - 1.0) 10/24/16 03:28 Ur Leukocyte Esterase TRACE (NEGATIVE) H 10/24/16 03:28 Urine RBC 25-50 /hpf (0-5) H 10/24/16 03:28 Urine WBC 10-25 /hpf (0-5) H 10/24/16 03:28 Ur Epithelial Cells FEW /lpf (FEW) 10/24/16 03:28 Urine Bacteria MODERATE /hpf (NONE SEEN) 10/24/16 03:28 Influenza A (Rapid) NEG FOR INF A 10/24/16 06:30 Influenza B (Rapid) NEG FOR INF B 10/24/16 06:30 Blood Type A POSITIVE 10/22/16 16:55 Antibody Screen NEGATIVE 10/22/16 16:55 Crossmatch See Detail 10/22/16 16:55 - Physical Exam Vitals and I&O: Vital Signs Temp 98.8 F 10/28/16 08:00 Pulse 100 10/28/16 11:00 Resp 12 10/28/16 11:00 BP 134/58 10/28/16 11:00 Pulse Ox 98 10/28/16 11:00 Intake & Output 10/27/16 10/28/16 10/28/16 18:59 06:59 18:59 Intake Total 900 900 Output Total 840 650 Balance 60 250 Weight (lbs) 84.368 kg Intake: Intake, IV Amount 200 100 Meropenem 500 mg In 200 100 Sodium Chloride 0.9% 100 ml @ 100 mls/hr IV Q8H [facility] Rx#:[id number] Oral 700 800 Output: Urine 840 650 Other: # Bowel Movements 0 0 Active Medications: Current Medications Acetaminophen (Tylenol 650mg/20.3ml Suspension) 650 mg PO Q4H PRN PRN Reason: Abdominal Pain Stop: 12/26/16 14:24 Acetaminophen/Hydrocodone Bitart ([place] 5mg/325mg) 1 tab PO Q4H PRN PRN Reason: PAIN / RESTLESSNESS Stop: 12/21/16 22:14 Last Admin: 10/27/16 20:20 Dose: 1 tab Albuterol/Ipratropium (Duoneb Neb) 3 ml HHN Q2H PRN PRN Reason: Respiratory Distress Stop: 12/21/16 23:29 Last Admin: 10/23/16 03:05 Dose: 3 ml Albuterol/Ipratropium (Duoneb Neb) 3 ml HHN Q4HRT [facility] Stop: 12/22/16 02:59 Last Admin: 10/28/16 10:37 Dose: 3 ml Amiodarone HCl (Cordarone) 200 mg PO DAILY [facility] Stop: 12/25/16 20:59 Last Admin: 10/28/16 09:21 Dose: 200 mg Budesonide (Pulmicort) 0.5 mg HHN BIDRT [facility] Stop: 12/22/16 06:59 Last Admin: 10/28/16 06:53 Dose: 0.5 mg Digoxin (Lanoxin) 0.25 mg IVP DAILY [facility] Stop: 12/25/16 08:59 Last Admin: 10/28/16 09:22 Dose: 0.25 mg Diltiazem HCl (Cardizem) 20 mg IVP Q4HR PRN PRN Reason: HR >120 Stop: 12/22/16 10:49 Last Admin: 10/25/16 23:09 Dose: 20 mg Diltiazem HCl (Cardizem) 60 mg PO Q6HR [facility] Stop: 12/27/16 11:59 Furosemide (Lasix) 40 mg IVP BID [facility] Stop: 12/22/16 16:59 Last Admin: 10/28/16 09:23 Dose: 40 mg Meropenem 500 mg/ Sodium (Chloride) 100 mls @ 100 mls/hr IV Q8H [facility] Stop: 12/25/16 14:59 Last Admin: 10/28/16 06:58 Dose: 100 mls/hr Diltiazem HCl 125 mg/ Dextrose 125 mls @ 4.8 mls/hr IV TITR [facility] Stop: 12/26/16 15:14 Last Admin: 10/27/16 14:00 Dose: 4.8 mls/hr Lactobacillus Rhamnosus (Culturelle) 1 each PO DAILY [facility] Stop: 12/27/16 08:59 Lorazepam (Ativan) 1 mg IVP Q4HR PRN; Protocol PRN Reason: Agitation Stop: 12/22/16 13:55 Last Admin: 10/28/16 08:20 Dose: 1 mg Miscellaneous (Probiotic Screen) 1 ea PRN PRN PRN Reason: PROTOCOL Stop: 12/26/16 16:17 Tamsulosin HCl (Flomax) 0.4 mg PO HS [facility] Stop: 12/21/16 20:59 Last Admin: 10/27/16 20:20 Dose: 0.4 mg Warfarin Sodium (Coumadin Per Pharmacy) 1 ea PRN PRN; Protocol PRN Reason: RX MONITORING Stop: 12/21/16 15:58 Warfarin Sodium (Coumadin) 5 mg PO C [facility] Stop: 10/28/16 12:59 Last Admin: 10/27/16 14:07 Dose: 5 mg Warfarin Sodium (Coumadin) 6 mg PO 1300 ONE Stop: 10/28/16 13:01 General: no acute distress, well developed, well nourished HEENT: atraumatic, normocephalic, PERRLA Neck: supple, no thyromegaly Cardiovascular: S1S2, regular Lungs: clear to auscultation bilaterally, clear to percussion Abdomen: soft, no tender, no distended Extremities: no cyanosis, no clubbing, no edema Neurological: other (Confused.) Skin: intact - Procedures Procedures: Procedures Procedure Code Date REPAIR FACE SKIN, EXTERNAL APPROACH [id number] 10/14/15 RPR S/N/AX/GEN/TRNK 2.5CM/< 21191 10/14/15 Infectious Disease Assmt/Plan - Problem List Patient Problems: All Active Problems BILATERAL LEG PAIN AND UNABLE TO AMBULAT (Acute) Lumbar spine strain (Acute) - Assessment Assessment: 1. UTI- ESBL E coli. 2. SVT , afib. 3. Dementia. 4. HTN. - Plan Plan: Continue Meropenem.
[2016-10-28] MEDS: Diltiazem 30 mg Tab PO SCH ×3 (12:45→23:27)
--- NOTE | 2016-10-28 12:54 | General Progress Note ---
Subjective - Review of Systems Service Date: 10/28/16 Subjective: EVENTS NOTED. VIELKA ORAL DIET. Objective - Results Result Diagrams: 10/27/16 07:30 10/28/16 06:24 Recent Labs: Laboratory Last Values WBC 8.9 Th/cmm (4.8-10.8) D 10/27/16 07:30 Corrected WBC (auto) 11.2 Th/cmm 10/23/16 06:52 RBC 4.20 Mil/cmm (3.80-5.80) 10/27/16 07:30 Hgb 9.4 gm/dL (12.6-17.4) L 10/27/16 07:30 Plasma Hgb 7.8 mg/dL (0.0-4.9) H 10/23/16 06:52 Hct 30.3 % (39.0-49.0) L 10/27/16 07:30 MCV 72.1 fl (80-99) L 10/27/16 07:30 MCH 22.4 pg (27.0-31.0) L 10/27/16 07:30 MCHC Differential 31.1 pg (28.0-36.0) 10/27/16 07:30 RDW 22.3 % (11.5-20.0) H 10/27/16 07:30 Plt Count 277 Th/cmm (150-400) 10/27/16 07:30 MPV 8.7 fl 10/27/16 07:30 Band Neutrophils % 3 % (0-10) 10/27/16 07:30 Neutrophils (Manual) 51 % (40-80) 10/27/16 07:30 Lymphocytes 19 % (20-50) L 10/27/16 07:30 Monocytes 23 % (2-10) H 10/27/16 07:30 Eosinophils 4 % (0-5) 10/27/16 07:30 Metamyelocytes 1 % (0-0) H 10/22/16 10:55 Myelocytes 3 % 10/23/16 06:52 Nucleated RBCs 4.0 % (0-0) H 10/23/16 06:52 Platelet Estimate ADEQUATE (NORMAL) 10/27/16 07:30 Platelet Morphology GIANT PLATELETS SEEN (NORMAL) 10/27/16 07:30 Polychromasia 1+ 10/27/16 07:30 Anisocytosis 1+ 10/27/16 07:30 Microcytosis 3+ 10/27/16 07:30 RBC Morph Micro Appear ABNORMAL (NORMAL) 10/27/16 07:30 Total Retics Counted 5.8 % (0.5-1.5) H 10/22/16 10:55 Absolute Retic 198.9 Th/cmm 10/22/16 10:55 Corrected Retic Count 3.0 % (0.5-1.5) H 10/22/16 10:55 PT 16.9 SECONDS (9.5-11.5) H 10/28/16 06:24 INR 1.66 (0.5-1.4) H 10/28/16 06:24 Specimen Source Arterial 10/24/16 08:30 Sample Site RB 10/24/16 08:30 pH 7.42 (7.35-7.45) 10/24/16 08:30 pCO2 46.0 mmHg (35.0-45.0) H 10/24/16 08:30 pO2 65.0 mmHg (80.0-100.0) L 10/24/16 08:30 HCO3 29.8 mmol/L (20.0-26.0) H 10/24/16 08:30 Base Excess 4.6 mmol/L (-3.0-3.0) H 10/24/16 08:30 O2 Saturation 93.0 % (92.0-100.0) 10/24/16 08:30 Danish Test NA 10/24/16 08:30 Vent Rate NA 10/24/16 08:30 Inspired O2 37 10/24/16 08:30 Tidal Volume NA 10/24/16 08:30 PEEP NA 10/24/16 08:30 Pressure (ins/psv/peep) NA 10/24/16 08:30 Critical Value SH 10/24/16 08:30 Sodium 137 mEq/L (136-145) 10/28/16 06:24 Potassium 3.8 mEq/L (3.5-5.1) 10/28/16 06:24 Chloride 95 mEq/L (98-107) L 10/28/16 06:24 Carbon Dioxide 36.3 mEq/L (21.0-31.0) H 10/28/16 06:24 Anion Gap 9.5 (7.0-16.0) 10/28/16 06:24 BUN 35 mg/dL (7-25) H 10/28/16 06:24 Creatinine 1.2 mg/dL (0.7-1.3) 10/28/16 06:24 Est GFR ( Amer) TNP 10/28/16 06:24 Est GFR (Non-Af Amer) TNP 10/28/16 06:24 BUN/Creatinine Ratio 29.2 10/28/16 06:24 Glucose 108 mg/dL (70-105) H 10/28/16 06:24 Whole Bld Lactic Acid 1.51 mmol/L (0.60-2.00) 10/22/16 10:55 Calcium 9.8 mg/dL (8.6-10.3) 10/28/16 06:24 Magnesium 2.2 mg/dL (1.9-2.7) 10/23/16 06:52 Iron 12 ug/dL (38-169) L 10/22/16 10:55 TIBC 541 ug/dL (250-450) H 10/22/16 10:55 Iron Saturation 2 % (15-55) L 10/22/16 10:55 Unsaturated IBC 529 ug/dL (111-343) H 10/22/16 10:55 Total Bilirubin 0.8 mg/dL (0.3-1.0) 10/27/16 07:30 Direct Bilirubin 0.10 mg/dL (0.0-0.2) 10/23/16 06:52 AST 46 U/L (13-39) H 10/27/16 07:30 ALT 53 U/L (7-52) H 10/27/16 07:30 Alkaline Phosphatase 32 U/L (34-104) L 10/27/16 07:30 Ammonia 35 umol/L (16-53) 10/25/16 07:20 Troponin I 0.63 ng/mL (0.01-0.05) H* 10/23/16 11:00 B-Natriuretic Peptide 1010.0 pg/mL (5.0-100.0) H 10/27/16 07:30 Total Protein 6.9 gm/dL (6.0-8.3) 10/27/16 07:30 Albumin 3.4 gm/dL (4.2-5.5) L 10/27/16 07:30 Globulin 3.5 gm/dL 10/27/16 07:30 Albumin/Globulin Ratio 1.0 (1.0-1.8) 10/27/16 07:30 Vitamin B12 922 pg/mL (211-946) 10/27/16 07:30 Folic Acid >20.0 ng/mL (>3.0) 10/22/16 10:55 Free T4 1.42 ng/dL (0.82-1.77) 10/23/16 06:52 Free T3 2.3 pg/mL (2.0-4.4) 10/23/16 06:52 TSH 3.23 uIU/ml (0.34-5.60) 10/27/16 07:30 Urine Source RANDOM 10/24/16 03:28 Urine Color YELLOW 10/24/16 03:28 Urine Clarity HAZY (CLEAR) 10/24/16 03:28 Urine pH 5.5 10/24/16 03:28 Ur Specific [employer] 1.025 (1.005-1.030) 10/24/16 03:28 Urine Protein 100 mg/dL (NEGATIVE) H 10/24/16 03:28 Urine Glucose (UA) NEGATIVE mg/dL (NEGATIVE) 10/24/16 03:28 Urine Ketones NEGATIVE mg/dL (NEGATIVE) 10/24/16 03:28 Urine Blood MODERATE (NEGATIVE) H 10/24/16 03:28 Urine Nitrate NEGATIVE (NEGATIVE) 10/24/16 03:28 Urine Bilirubin NEGATIVE (NEGATIVE) 10/24/16 03:28 Urine Urobilinogen 0.2 E.U./dL (0.2 - 1.0) 10/24/16 03:28 Ur Leukocyte Esterase TRACE (NEGATIVE) H 10/24/16 03:28 Urine RBC 25-50 /hpf (0-5) H 10/24/16 03:28 Urine WBC 10-25 /hpf (0-5) H 10/24/16 03:28 Ur Epithelial Cells FEW /lpf (FEW) 10/24/16 03:28 Urine Bacteria MODERATE /hpf (NONE SEEN) 10/24/16 03:28 Influenza A (Rapid) NEG FOR INF A 10/24/16 06:30 Influenza B (Rapid) NEG FOR INF B 10/24/16 06:30 Blood Type A POSITIVE 10/22/16 16:55 Antibody Screen NEGATIVE 10/22/16 16:55 Crossmatch See Detail 10/22/16 16:55 - Physical Exam Vitals and I&O: Vital Signs Temp 98.8 F 10/28/16 08:00 Pulse 100 10/28/16 11:00 Resp 12 10/28/16 11:00 BP 134/58 10/28/16 11:00 Pulse Ox 98 10/28/16 11:00 Intake & Output 10/27/16 10/28/16 10/28/16 18:59 06:59 18:59 Intake Total 900 900 Output Total 840 650 Balance 60 250 Weight (lbs) 84.368 kg Intake: Intake, IV Amount 200 100 Meropenem 500 mg In 200 100 Sodium Chloride 0.9% 100 ml @ 100 mls/hr IV Q8H [facility] Rx#:[id number] Oral 700 800 Output: Urine 840 650 Other: # Bowel Movements 0 0 Active Medications: Current Medications Acetaminophen (Tylenol 650mg/20.3ml Suspension) 650 mg PO Q4H PRN PRN Reason: Abdominal Pain Stop: 12/26/16 14:24 Acetaminophen/Hydrocodone Bitart ([place] 5mg/325mg) 1 tab PO Q4H PRN PRN Reason: PAIN / RESTLESSNESS Stop: 12/21/16 22:14 Last Admin: 10/27/16 20:20 Dose: 1 tab Albuterol/Ipratropium (Duoneb Neb) 3 ml HHN Q2H PRN PRN Reason: Respiratory Distress Stop: 12/21/16 23:29 Last Admin: 10/23/16 03:05 Dose: 3 ml Albuterol/Ipratropium (Duoneb Neb) 3 ml HHN Q4HRT [facility] Stop: 12/22/16 02:59 Last Admin: 10/28/16 10:37 Dose: 3 ml Amiodarone HCl (Cordarone) 200 mg PO DAILY [facility] Stop: 12/25/16 20:59 Last Admin: 10/28/16 09:21 Dose: 200 mg Budesonide (Pulmicort) 0.5 mg HHN BIDRT [facility] Stop: 12/22/16 06:59 Last Admin: 10/28/16 06:53 Dose: 0.5 mg Digoxin (Lanoxin) 0.25 mg IVP DAILY [facility] Stop: 12/25/16 08:59 Last Admin: 10/28/16 09:22 Dose: 0.25 mg Diltiazem HCl (Cardizem) 20 mg IVP Q4HR PRN PRN Reason: HR >120 Stop: 12/22/16 10:49 Last Admin: 10/25/16 23:09 Dose: 20 mg Diltiazem HCl (Cardizem) 60 mg PO Q6HR [facility] Stop: 12/27/16 11:59 Furosemide (Lasix) 40 mg IVP BID [facility] Stop: 12/22/16 16:59 Last Admin: 10/28/16 09:23 Dose: 40 mg Meropenem 500 mg/ Sodium (Chloride) 100 mls @ 100 mls/hr IV Q8H [facility] Stop: 12/25/16 14:59 Last Admin: 10/28/16 06:58 Dose: 100 mls/hr Diltiazem HCl 125 mg/ Dextrose 125 mls @ 4.8 mls/hr IV TITR [facility] Stop: 12/26/16 15:14 Last Admin: 10/27/16 14:00 Dose: 4.8 mls/hr Lactobacillus Rhamnosus (Culturelle) 1 each PO DAILY [facility] Stop: 12/27/16 08:59 Lorazepam (Ativan) 1 mg IVP Q4HR PRN; Protocol PRN Reason: Agitation Stop: 12/22/16 13:55 Last Admin: 10/28/16 08:20 Dose: 1 mg Miscellaneous (Probiotic Screen) 1 ea PRN PRN PRN Reason: PROTOCOL Stop: 12/26/16 16:17 Tamsulosin HCl (Flomax) 0.4 mg PO HS [facility] Stop: 12/21/16 20:59 Last Admin: 10/27/16 20:20 Dose: 0.4 mg Warfarin Sodium (Coumadin Per Pharmacy) 1 ea PRN PRN; Protocol PRN Reason: RX MONITORING Stop: 12/21/16 15:58 Warfarin Sodium (Coumadin) 5 mg PO C [facility] Stop: 10/28/16 12:59 Last Admin: 10/27/16 14:07 Dose: 5 mg Warfarin Sodium (Coumadin) 6 mg PO 1300 ONE Stop: 10/28/16 13:01 General: No acute distress HEENT: Atraumatic Neck: Supple Cardiovascular: Regular rate Lungs: Clear to auscultation Abdomen: Bowel sounds, Soft, no Tender, no Distended - Procedures Procedures: Procedures Procedure Code Date REPAIR FACE SKIN, EXTERNAL APPROACH [id number] 10/14/15 RPR S/N/AX/GEN/TRNK 2.5CM/< 70115 10/14/15 Assessment/Plan - Problem List Patient Problems: All Active Problems BILATERAL LEG PAIN AND UNABLE TO AMBULAT (Acute) Lumbar spine strain (Acute) - Assessment Assessment: 1. ANEMIA, MULTIFACTORIAL. 2. A FIB WITH RVR. 3. CHF. 4. NSTEMI. 5. CONFUSION. - Plan Plan: 1. CONSERVATIVE NON-ENDOSCOPIC MANAGEMENT OF ANEMIA. TOO SICK FOR ENDOSCOPIC WORKUP AT THIS POINT. CONSIDER EGD AND/OR COLONOSCOPY FOR THERAPEUTIC PURPOSES ONLY. 2. MONITOR HGB; TRANSFUSE PRN. 3. PUREED DIET VIELKA. 4. PER CARDS/PULM/ID.
[2016-10-28] MEDS: Lactobacillus Rhamnosus 10 Billion CFU Capsule PO SCH (15:32)
--- NOTE | 2016-10-28 23:35 | Progress Notes ---
PULMONARY PROGRESS NOTE: PROBLEM LIST: 1. Acute congestive heart failure, improved. 2. Pneumonia, improving. 3. Psychosis. 4. Cardiac arrhythmia. SYMPTOMS: Nil. The patient is moaning all over. No respiratory distress. PHYSICAL EXAMINATION: VITAL SIGNS: Temperature is 96, heart rate is 100-110, blood pressure is 134/58, saturation is 98%. ENT: Shows no new changes. CHEST: Shows diminished air entry. No other adventitious breath sounds. HEART: Regular. ABDOMEN: Soft, nontender. EXTREMITIES: Show no peripheral edema. LABORATORY DATA: Electrolytes are okay with BUN of 35. ASSESSMENT: The patient is clinically better except for psychological issue, moaning and groaning. PLANS AND SUGGESTIONS: We will continue current treatment as per Dr. Suki Slade and go from there. JOB# [id number]
[2016-10-29] MEDS: Albuterol/Ipratropium Neb 3 ML AERS HHN SCH ×6 (03:07→23:50)
[2016-10-29 05:07] LABS: HEMATOCRIT 29.6 % (39.0-49.0); HEMOGLOBIN 9.4 gm/dL (12.6-17.4); MEAN CELL VOLUME 71.6 fl (80-99); MEAN CORPUSCULAR HEMOGLOBIN 22.8 pg (27.0-31.0); MEAN CORPUSCULAR HGB CONC 31.9 pg (28.0-36.0); MEAN PLATELET VOLUME 8.9 fl; PLATELET COUNT 278 Th/cmm (150-400); RED BLOOD COUNT 4.13 Mil/cmm (3.80-5.80); RED CELL DISTRIBUTION WIDTH 22.6 % (11.5-20.0); WHITE BLOOD COUNT 10.6 Th/cmm (4.8-10.8)
[2016-10-29] MEDS: Diltiazem 30 mg Tab PO SCH ×3 (05:27→17:58)
[2016-10-29 05:41] LABS: ANION GAP 10.7 (7.0-16.0); BUN - UREA NITROGEN 33 mg/dL (7-25); BUN/CREATININE RATIO 25.4; CALCIUM SERUM 9.8 mg/dL (8.6-10.3); CARBON DIOXIDE 35.4 mEq/L (21.0-31.0); CHLORIDE 94 mEq/L (98-107); CREATININE - SERUM 1.3 mg/dL (0.7-1.3); GLUCOSE 92 mg/dL (70-105); POTASSIUM SERUM 4.1 mEq/L (3.5-5.1); SODIUM SERUM 136 mEq/L (136-145)
[2016-10-29] MEDS: Diltiazem 5 mg/mL 5mL Vial IVP PRN (06:10)
[2016-10-29 06:11] LABS: ANISOCYTOSIS 1+; BAND NEUTROPHILE 1 % (0-10); BASOPHIL 1 % (0-3); EOSINOPHIL 4 % (0-5); MICROCYTOSIS 3+; NEUTROPHILS 56 % (40-80); PLATELET ESTIMATE ADEQUATE (NORMAL); PLATELET MORPHOLOGY GIANT PLATELETS SEEN (NORMAL); POLYCHROMASIA 1+; TOTAL CELLS COUNTED 100
[2016-10-29] MEDS: Meropenem 500 MG in Sodium Chloride 0.9% 100 ML IV SCH ×3 (06:42→23:23)
[2016-10-29] MEDS: Budesonide 0.5 Mg/2 mL Ud HHN SCH ×2 (09:04→18:59)
[2016-10-29] MEDS: Hydrocodone/APAP 5mg/325mg Tab PO PRN ×2 (09:05→14:21)
[2016-10-29] MEDS: Lactobacillus Rhamnosus 10 Billion CFU Capsule PO SCH (09:39)
--- NOTE | 2016-10-29 10:10 | Diagnostic Imaging Report ---
Portable chest x-ray HISTORY: Pneumonia Compared with prior exam of October 26, 2016, the heart is enlarged. No definite focal pulmonary processes are seen. There is a tortuous aorta. Density within the left lower hemithorax suggesting an effusion has resolved. IMPRESSION: 1. No definite focal pulmonary processes. Changes suggesting resolution in findings of a left pleural effusion. 2. Cardiomegaly
--- NOTE | 2016-10-29 11:57 | Infectious Disease Prog Note ---
Infectious Disease Subjective - Review of Systems Service Date: 10/29/16 Subjective: No Change. Infectious Disease Objective - Results Result Diagrams: 10/29/16 04:48 10/29/16 04:48 Recent Labs: Laboratory Last Values WBC 10.6 Th/cmm (4.8-10.8) 10/29/16 04:48 Corrected WBC (auto) 11.2 Th/cmm 10/23/16 06:52 RBC 4.13 Mil/cmm (3.80-5.80) 10/29/16 04:48 Hgb 9.4 gm/dL (12.6-17.4) L 10/29/16 04:48 Plasma Hgb 7.8 mg/dL (0.0-4.9) H 10/23/16 06:52 Hct 29.6 % (39.0-49.0) L 10/29/16 04:48 MCV 71.6 fl (80-99) L 10/29/16 04:48 MCH 22.8 pg (27.0-31.0) L 10/29/16 04:48 MCHC Differential 31.9 pg (28.0-36.0) 10/29/16 04:48 RDW 22.6 % (11.5-20.0) H 10/29/16 04:48 Plt Count 278 Th/cmm (150-400) 10/29/16 04:48 MPV 8.9 fl 10/29/16 04:48 Band Neutrophils % 1 % (0-10) 10/29/16 04:48 Neutrophils (Manual) 56 % (40-80) 10/29/16 04:48 Lymphocytes 24 % (20-50) 10/29/16 04:48 Monocytes 14 % (2-10) H 10/29/16 04:48 Eosinophils 4 % (0-5) 10/29/16 04:48 Basophils 1 % (0-3) 10/29/16 04:48 Metamyelocytes 1 % (0-0) H 10/22/16 10:55 Myelocytes 3 % 10/23/16 06:52 Nucleated RBCs 4.0 % (0-0) H 10/23/16 06:52 Platelet Estimate ADEQUATE (NORMAL) 10/29/16 04:48 Platelet Morphology GIANT PLATELETS SEEN (NORMAL) 10/29/16 04:48 Polychromasia 1+ 10/29/16 04:48 Anisocytosis 1+ 10/29/16 04:48 Microcytosis 3+ 10/29/16 04:48 RBC Morph Micro Appear ABNORMAL (NORMAL) 10/29/16 04:48 Total Retics Counted 5.8 % (0.5-1.5) H 10/22/16 10:55 Absolute Retic 198.9 Th/cmm 10/22/16 10:55 Corrected Retic Count 3.0 % (0.5-1.5) H 10/22/16 10:55 PT 16.9 SECONDS (9.5-11.5) H 10/28/16 06:24 INR 1.66 (0.5-1.4) H 10/28/16 06:24 Specimen Source Arterial 10/24/16 08:30 Sample Site RB 10/24/16 08:30 pH 7.42 (7.35-7.45) 10/24/16 08:30 pCO2 46.0 mmHg (35.0-45.0) H 10/24/16 08:30 pO2 65.0 mmHg (80.0-100.0) L 10/24/16 08:30 HCO3 29.8 mmol/L (20.0-26.0) H 10/24/16 08:30 Base Excess 4.6 mmol/L (-3.0-3.0) H 10/24/16 08:30 O2 Saturation 93.0 % (92.0-100.0) 10/24/16 08:30 Danish Test NA 10/24/16 08:30 Vent Rate NA 10/24/16 08:30 Inspired O2 37 10/24/16 08:30 Tidal Volume NA 10/24/16 08:30 PEEP NA 10/24/16 08:30 Pressure (ins/psv/peep) NA 10/24/16 08:30 Critical Value SH 10/24/16 08:30 Sodium 136 mEq/L (136-145) 10/29/16 04:48 Potassium 4.1 mEq/L (3.5-5.1) 10/29/16 04:48 Chloride 94 mEq/L (98-107) L 10/29/16 04:48 Carbon Dioxide 35.4 mEq/L (21.0-31.0) H 10/29/16 04:48 Anion Gap 10.7 (7.0-16.0) 10/29/16 04:48 BUN 33 mg/dL (7-25) H 10/29/16 04:48 Creatinine 1.3 mg/dL (0.7-1.3) 10/29/16 04:48 Est GFR ( Amer) TNP 10/29/16 04:48 Est GFR (Non-Af Amer) TNP 10/29/16 04:48 BUN/Creatinine Ratio 25.4 10/29/16 04:48 Glucose 92 mg/dL (70-105) 10/29/16 04:48 Whole Bld Lactic Acid 1.51 mmol/L (0.60-2.00) 10/22/16 10:55 Calcium 9.8 mg/dL (8.6-10.3) 10/29/16 04:48 Magnesium 2.2 mg/dL (1.9-2.7) 10/23/16 06:52 Iron 12 ug/dL (38-169) L 10/22/16 10:55 TIBC 541 ug/dL (250-450) H 10/22/16 10:55 Iron Saturation 2 % (15-55) L 10/22/16 10:55 Unsaturated IBC 529 ug/dL (111-343) H 10/22/16 10:55 Total Bilirubin 0.8 mg/dL (0.3-1.0) 10/27/16 07:30 Direct Bilirubin 0.10 mg/dL (0.0-0.2) 10/23/16 06:52 AST 46 U/L (13-39) H 10/27/16 07:30 ALT 53 U/L (7-52) H 10/27/16 07:30 Alkaline Phosphatase 32 U/L (34-104) L 10/27/16 07:30 Ammonia 35 umol/L (16-53) 10/25/16 07:20 Troponin I 0.63 ng/mL (0.01-0.05) H* 10/23/16 11:00 B-Natriuretic Peptide 979.0 pg/mL (5.0-100.0) H 10/29/16 04:48 Total Protein 6.9 gm/dL (6.0-8.3) 10/27/16 07:30 Albumin 3.4 gm/dL (4.2-5.5) L 10/27/16 07:30 Globulin 3.5 gm/dL 10/27/16 07:30 Albumin/Globulin Ratio 1.0 (1.0-1.8) 10/27/16 07:30 Vitamin B12 922 pg/mL (211-946) 10/27/16 07:30 Folic Acid >20.0 ng/mL (>3.0) 10/22/16 10:55 Free T4 1.42 ng/dL (0.82-1.77) 10/23/16 06:52 Free T3 2.3 pg/mL (2.0-4.4) 10/23/16 06:52 TSH 3.23 uIU/ml (0.34-5.60) 10/27/16 07:30 Urine Source RANDOM 10/24/16 03:28 Urine Color YELLOW 10/24/16 03:28 Urine Clarity HAZY (CLEAR) 10/24/16 03:28 Urine pH 5.5 10/24/16 03:28 Ur Specific [place] 1.025 (1.005-1.030) 10/24/16 03:28 Urine Protein 100 mg/dL (NEGATIVE) H 10/24/16 03:28 Urine Glucose (UA) NEGATIVE mg/dL (NEGATIVE) 10/24/16 03:28 Urine Ketones NEGATIVE mg/dL (NEGATIVE) 10/24/16 03:28 Urine Blood MODERATE (NEGATIVE) H 10/24/16 03:28 Urine Nitrate NEGATIVE (NEGATIVE) 10/24/16 03:28 Urine Bilirubin NEGATIVE (NEGATIVE) 10/24/16 03:28 Urine Urobilinogen 0.2 E.U./dL (0.2 - 1.0) 10/24/16 03:28 Ur Leukocyte Esterase TRACE (NEGATIVE) H 10/24/16 03:28 Urine RBC 25-50 /hpf (0-5) H 10/24/16 03:28 Urine WBC 10-25 /hpf (0-5) H 10/24/16 03:28 Ur Epithelial Cells FEW /lpf (FEW) 10/24/16 03:28 Urine Bacteria MODERATE /hpf (NONE SEEN) 10/24/16 03:28 RPR NONREACTIVE (NONREACTIVE) 10/27/16 07:30 Influenza A (Rapid) NEG FOR INF A 10/24/16 06:30 Influenza B (Rapid) NEG FOR INF B 10/24/16 06:30 Blood Type A POSITIVE 10/22/16 16:55 Antibody Screen NEGATIVE 10/22/16 16:55 Crossmatch See Detail 10/22/16 16:55 - Physical Exam Vitals and I&O: Vital Signs Temp 97.6 F 10/29/16 11:14 Pulse 97 10/29/16 11:47 Resp 14 10/29/16 11:14 BP 131/73 10/29/16 11:14 Pulse Ox 100 10/29/16 11:14 Intake & Output 10/28/16 10/29/16 10/29/16 18:59 06:59 18:59 Intake Total 1700 940 450 Output Total 1800 850 Balance -100 90 450 Intake: Intake, IV Amount 200 100 100 Meropenem 500 mg In 200 100 100 Sodium Chloride 0.9% 100 ml @ 100 mls/hr IV Q8H [facility] Rx#:[id number] Oral 1500 840 350 Output: Urine 1800 850 Other: # Bowel Movements 0 Active Medications: Current Medications Acetaminophen (Tylenol 650mg/20.3ml Suspension) 650 mg PO Q4H PRN PRN Reason: Abdominal Pain Stop: 12/26/16 14:24 Acetaminophen/Hydrocodone Bitart ([place] 5mg/325mg) 1 tab PO Q4H PRN PRN Reason: PAIN / RESTLESSNESS Stop: 12/21/16 22:14 Last Admin: 10/29/16 09:05 Dose: 1 tab Albuterol/Ipratropium (Duoneb Neb) 3 ml HHN Q2H PRN PRN Reason: Respiratory Distress Stop: 12/21/16 23:29 Last Admin: 10/23/16 03:05 Dose: 3 ml Albuterol/Ipratropium (Duoneb Neb) 3 ml HHN Q4HRT [facility] Stop: 12/22/16 02:59 Last Admin: 10/29/16 08:54 Dose: 3 ml Amiodarone HCl (Cordarone) 200 mg PO DAILY [facility] Stop: 12/25/16 20:59 Last Admin: 10/29/16 09:39 Dose: 200 mg Budesonide (Pulmicort) 0.5 mg HHN BIDRT [facility] Stop: 12/22/16 06:59 Last Admin: 10/29/16 09:04 Dose: 0.5 mg Digoxin (Lanoxin) 0.25 mg IVP DAILY [facility] Stop: 12/25/16 08:59 Last Admin: 10/29/16 09:39 Dose: 0.25 mg Diltiazem HCl (Cardizem) 20 mg IVP Q4HR PRN PRN Reason: HR >120 Stop: 12/22/16 10:49 Last Admin: 10/29/16 06:10 Dose: 20 mg Diltiazem HCl (Cardizem) 60 mg PO Q6HR [facility] Stop: 12/27/16 11:59 Last Admin: 10/29/16 11:47 Dose: 60 mg Furosemide (Lasix) 40 mg IVP BID [facility] Stop: 12/22/16 16:59 Last Admin: 10/29/16 09:40 Dose: 40 mg Meropenem 500 mg/ Sodium (Chloride) 100 mls @ 100 mls/hr IV Q8H [facility] Stop: 12/25/16 14:59 Last Infusion: 10/29/16 07:50 Dose: Infused Diltiazem HCl 125 mg/ Dextrose 125 mls @ 4.8 mls/hr IV TITR [facility] Stop: 12/26/16 15:14 Last Admin: 10/27/16 14:00 Dose: 4.8 mls/hr Lactobacillus Rhamnosus (Culturelle) 1 each PO DAILY [facility] Stop: 12/27/16 08:59 Last Admin: 10/29/16 09:39 Dose: 1 each Lorazepam (Ativan) 1 mg IVP Q4HR PRN; Protocol PRN Reason: Agitation Stop: 12/22/16 13:55 Last Admin: 10/29/16 05:26 Dose: 1 mg Miscellaneous (Probiotic Screen) 1 ea PRN PRN PRN Reason: PROTOCOL Stop: 12/26/16 16:17 Tamsulosin HCl (Flomax) 0.4 mg PO HS [facility] Stop: 12/21/16 20:59 Last Admin: 10/28/16 20:23 Dose: 0.4 mg Warfarin Sodium (Coumadin Per Pharmacy) 1 ea PRN PRN; Protocol PRN Reason: RX MONITORING Stop: 12/21/16 15:58 General: no acute distress, well developed, well nourished HEENT: atraumatic, normocephalic, PERRLA, EOMI Neck: supple Cardiovascular: S1S2, regular Lungs: clear to auscultation bilaterally, clear to percussion Abdomen: soft, no tender, no distended Extremities: no cyanosis, no clubbing, no edema Neurological: awake, alert - Procedures Procedures: Procedures Procedure Code Date REPAIR FACE SKIN, EXTERNAL APPROACH [id number] 10/14/15 RPR S/N/AX/GEN/TRNK 2.5CM/< 49919 10/14/15 Infectious Disease Assmt/Plan - Problem List Patient Problems: All Active Problems BILATERAL LEG PAIN AND UNABLE TO AMBULAT (Acute) Lumbar spine strain (Acute) - Assessment Assessment: 1. UTI- ESBL E coli. 2. SVT , afib. 3. Dementia. 4. HTN. - Plan Plan: Continue Meropenem.
--- NOTE | 2016-10-29 18:25 | General Progress Note ---
Subjective - Review of Systems Service Date: 10/29/16 Subjective: EVENTS NOTED. VIELKA ORAL DIET. Objective - Results Result Diagrams: 10/29/16 04:48 10/29/16 04:48 Recent Labs: Laboratory Last Values WBC 10.6 Th/cmm (4.8-10.8) 10/29/16 04:48 Corrected WBC (auto) 11.2 Th/cmm 10/23/16 06:52 RBC 4.13 Mil/cmm (3.80-5.80) 10/29/16 04:48 Hgb 9.4 gm/dL (12.6-17.4) L 10/29/16 04:48 Plasma Hgb 7.8 mg/dL (0.0-4.9) H 10/23/16 06:52 Hct 29.6 % (39.0-49.0) L 10/29/16 04:48 MCV 71.6 fl (80-99) L 10/29/16 04:48 MCH 22.8 pg (27.0-31.0) L 10/29/16 04:48 MCHC Differential 31.9 pg (28.0-36.0) 10/29/16 04:48 RDW 22.6 % (11.5-20.0) H 10/29/16 04:48 Plt Count 278 Th/cmm (150-400) 10/29/16 04:48 MPV 8.9 fl 10/29/16 04:48 Band Neutrophils % 1 % (0-10) 10/29/16 04:48 Neutrophils (Manual) 56 % (40-80) 10/29/16 04:48 Lymphocytes 24 % (20-50) 10/29/16 04:48 Monocytes 14 % (2-10) H 10/29/16 04:48 Eosinophils 4 % (0-5) 10/29/16 04:48 Basophils 1 % (0-3) 10/29/16 04:48 Metamyelocytes 1 % (0-0) H 10/22/16 10:55 Myelocytes 3 % 10/23/16 06:52 Nucleated RBCs 4.0 % (0-0) H 10/23/16 06:52 Platelet Estimate ADEQUATE (NORMAL) 10/29/16 04:48 Platelet Morphology GIANT PLATELETS SEEN (NORMAL) 10/29/16 04:48 Polychromasia 1+ 10/29/16 04:48 Anisocytosis 1+ 10/29/16 04:48 Microcytosis 3+ 10/29/16 04:48 RBC Morph Micro Appear ABNORMAL (NORMAL) 10/29/16 04:48 Total Retics Counted 5.8 % (0.5-1.5) H 10/22/16 10:55 Absolute Retic 198.9 Th/cmm 10/22/16 10:55 Corrected Retic Count 3.0 % (0.5-1.5) H 10/22/16 10:55 PT 16.9 SECONDS (9.5-11.5) H 10/28/16 06:24 INR 1.66 (0.5-1.4) H 10/28/16 06:24 Specimen Source Arterial 10/24/16 08:30 Sample Site RB 10/24/16 08:30 pH 7.42 (7.35-7.45) 10/24/16 08:30 pCO2 46.0 mmHg (35.0-45.0) H 10/24/16 08:30 pO2 65.0 mmHg (80.0-100.0) L 10/24/16 08:30 HCO3 29.8 mmol/L (20.0-26.0) H 10/24/16 08:30 Base Excess 4.6 mmol/L (-3.0-3.0) H 10/24/16 08:30 O2 Saturation 93.0 % (92.0-100.0) 10/24/16 08:30 Danish Test NA 10/24/16 08:30 Vent Rate NA 10/24/16 08:30 Inspired O2 37 10/24/16 08:30 Tidal Volume NA 10/24/16 08:30 PEEP NA 10/24/16 08:30 Pressure (ins/psv/peep) NA 10/24/16 08:30 Critical Value SH 10/24/16 08:30 Sodium 136 mEq/L (136-145) 10/29/16 04:48 Potassium 4.1 mEq/L (3.5-5.1) 10/29/16 04:48 Chloride 94 mEq/L (98-107) L 10/29/16 04:48 Carbon Dioxide 35.4 mEq/L (21.0-31.0) H 10/29/16 04:48 Anion Gap 10.7 (7.0-16.0) 10/29/16 04:48 BUN 33 mg/dL (7-25) H 10/29/16 04:48 Creatinine 1.3 mg/dL (0.7-1.3) 10/29/16 04:48 Est GFR ( Amer) TNP 10/29/16 04:48 Est GFR (Non-Af Amer) TNP 10/29/16 04:48 BUN/Creatinine Ratio 25.4 10/29/16 04:48 Glucose 92 mg/dL (70-105) 10/29/16 04:48 Whole Bld Lactic Acid 1.51 mmol/L (0.60-2.00) 10/22/16 10:55 Calcium 9.8 mg/dL (8.6-10.3) 10/29/16 04:48 Magnesium 2.2 mg/dL (1.9-2.7) 10/23/16 06:52 Iron 12 ug/dL (38-169) L 10/22/16 10:55 TIBC 541 ug/dL (250-450) H 10/22/16 10:55 Iron Saturation 2 % (15-55) L 10/22/16 10:55 Unsaturated IBC 529 ug/dL (111-343) H 10/22/16 10:55 Total Bilirubin 0.8 mg/dL (0.3-1.0) 10/27/16 07:30 Direct Bilirubin 0.10 mg/dL (0.0-0.2) 10/23/16 06:52 AST 46 U/L (13-39) H 10/27/16 07:30 ALT 53 U/L (7-52) H 10/27/16 07:30 Alkaline Phosphatase 32 U/L (34-104) L 10/27/16 07:30 Ammonia 35 umol/L (16-53) 10/25/16 07:20 Troponin I 0.63 ng/mL (0.01-0.05) H* 10/23/16 11:00 B-Natriuretic Peptide 979.0 pg/mL (5.0-100.0) H 10/29/16 04:48 Total Protein 6.9 gm/dL (6.0-8.3) 10/27/16 07:30 Albumin 3.4 gm/dL (4.2-5.5) L 10/27/16 07:30 Globulin 3.5 gm/dL 10/27/16 07:30 Albumin/Globulin Ratio 1.0 (1.0-1.8) 10/27/16 07:30 Vitamin B12 922 pg/mL (211-946) 10/27/16 07:30 Folic Acid >20.0 ng/mL (>3.0) 10/22/16 10:55 Free T4 1.42 ng/dL (0.82-1.77) 10/23/16 06:52 Free T3 2.3 pg/mL (2.0-4.4) 10/23/16 06:52 TSH 3.23 uIU/ml (0.34-5.60) 10/27/16 07:30 Urine Source RANDOM 10/24/16 03:28 Urine Color YELLOW 10/24/16 03:28 Urine Clarity HAZY (CLEAR) 10/24/16 03:28 Urine pH 5.5 10/24/16 03:28 Ur Specific [place] 1.025 (1.005-1.030) 10/24/16 03:28 Urine Protein 100 mg/dL (NEGATIVE) H 10/24/16 03:28 Urine Glucose (UA) NEGATIVE mg/dL (NEGATIVE) 10/24/16 03:28 Urine Ketones NEGATIVE mg/dL (NEGATIVE) 10/24/16 03:28 Urine Blood MODERATE (NEGATIVE) H 10/24/16 03:28 Urine Nitrate NEGATIVE (NEGATIVE) 10/24/16 03:28 Urine Bilirubin NEGATIVE (NEGATIVE) 10/24/16 03:28 Urine Urobilinogen 0.2 E.U./dL (0.2 - 1.0) 10/24/16 03:28 Ur Leukocyte Esterase TRACE (NEGATIVE) H 10/24/16 03:28 Urine RBC 25-50 /hpf (0-5) H 10/24/16 03:28 Urine WBC 10-25 /hpf (0-5) H 10/24/16 03:28 Ur Epithelial Cells FEW /lpf (FEW) 10/24/16 03:28 Urine Bacteria MODERATE /hpf (NONE SEEN) 10/24/16 03:28 RPR NONREACTIVE (NONREACTIVE) 10/27/16 07:30 Influenza A (Rapid) NEG FOR INF A 10/24/16 06:30 Influenza B (Rapid) NEG FOR INF B 10/24/16 06:30 Blood Type A POSITIVE 10/22/16 16:55 Antibody Screen NEGATIVE 10/22/16 16:55 Crossmatch See Detail 10/22/16 16:55 - Physical Exam Vitals and I&O: Vital Signs Temp 98 F 10/29/16 18:00 Pulse 78 10/29/16 18:00 Resp 14 10/29/16 18:00 BP 130/67 10/29/16 18:00 Pulse Ox 100 10/29/16 18:00 Intake & Output 10/28/16 10/29/16 10/29/16 18:59 06:59 18:59 Intake Total 1700 940 450 Output Total 1800 850 Balance -100 90 450 Intake: Intake, IV Amount 200 100 100 Meropenem 500 mg In 200 100 100 Sodium Chloride 0.9% 100 ml @ 100 mls/hr IV Q8H [facility] Rx#:[id number] Oral 1500 840 350 Output: Urine 1800 850 Other: # Bowel Movements 0 Active Medications: Current Medications Acetaminophen (Tylenol 650mg/20.3ml Suspension) 650 mg PO Q4H PRN PRN Reason: Abdominal Pain Stop: 12/26/16 14:24 Acetaminophen/Hydrocodone Bitart ([place] 5mg/325mg) 1 tab PO Q4H PRN PRN Reason: PAIN / RESTLESSNESS Stop: 12/21/16 22:14 Last Admin: 10/29/16 14:21 Dose: 1 tab Albuterol/Ipratropium (Duoneb Neb) 3 ml HHN Q2H PRN PRN Reason: Respiratory Distress Stop: 12/21/16 23:29 Last Admin: 10/23/16 03:05 Dose: 3 ml Albuterol/Ipratropium (Duoneb Neb) 3 ml HHN Q4HRT [facility] Stop: 12/22/16 02:59 Last Admin: 10/29/16 15:47 Dose: 3 ml Amiodarone HCl (Cordarone) 200 mg PO DAILY [facility] Stop: 12/25/16 20:59 Last Admin: 10/29/16 09:39 Dose: 200 mg Budesonide (Pulmicort) 0.5 mg HHN BIDRT [facility] Stop: 12/22/16 06:59 Last Admin: 10/29/16 09:04 Dose: 0.5 mg Digoxin (Lanoxin) 0.25 mg IVP DAILY [facility] Stop: 12/25/16 08:59 Last Admin: 10/29/16 09:39 Dose: 0.25 mg Diltiazem HCl (Cardizem) 20 mg IVP Q4HR PRN PRN Reason: HR >120 Stop: 12/22/16 10:49 Last Admin: 10/29/16 06:10 Dose: 20 mg Diltiazem HCl (Cardizem) 60 mg PO Q6HR [facility] Stop: 12/27/16 11:59 Last Admin: 10/29/16 17:58 Dose: Not Given Furosemide (Lasix) 40 mg IVP BID [facility] Stop: 12/22/16 16:59 Last Admin: 10/29/16 17:55 Dose: 40 mg Meropenem 500 mg/ Sodium (Chloride) 100 mls @ 100 mls/hr IV Q8H [facility] Stop: 12/25/16 14:59 Last Admin: 10/29/16 14:22 Dose: 100 mls/hr Diltiazem HCl 125 mg/ Dextrose 125 mls @ 4.8 mls/hr IV TITR [facility] Stop: 12/26/16 15:14 Last Admin: 10/27/16 14:00 Dose: 4.8 mls/hr Lactobacillus Rhamnosus (Culturelle) 1 each PO DAILY [facility] Stop: 12/27/16 08:59 Last Admin: 10/29/16 09:39 Dose: 1 each Lorazepam (Ativan) 1 mg IVP Q4HR PRN; Protocol PRN Reason: Agitation Stop: 12/22/16 13:55 Last Admin: 10/29/16 15:40 Dose: 1 mg Magnesium Oxide (Mag-Oxide) 800 mg PO PRN PRN PRN Reason: X1 IF NO BM AFTER 1ST DOSE Stop: 10/29/16 21:00 Miscellaneous (Probiotic Screen) 1 ea PRN PRN PRN Reason: PROTOCOL Stop: 12/26/16 16:17 Tamsulosin HCl (Flomax) 0.4 mg PO HS [facility] Stop: 12/21/16 20:59 Last Admin: 10/28/16 20:23 Dose: 0.4 mg Warfarin Sodium (Coumadin Per Pharmacy) 1 ea PRN PRN; Protocol PRN Reason: RX MONITORING Stop: 12/21/16 15:58 General: No acute distress HEENT: Atraumatic Neck: Supple Cardiovascular: Regular rate Lungs: Clear to auscultation Abdomen: Bowel sounds, Soft, no Tender - Procedures Procedures: Procedures Procedure Code Date REPAIR FACE SKIN, EXTERNAL APPROACH [id number] 10/14/15 RPR S/N/AX/GEN/TRNK 2.5CM/< 25011 10/14/15 Assessment/Plan - Problem List Patient Problems: All Active Problems BILATERAL LEG PAIN AND UNABLE TO AMBULAT (Acute) Lumbar spine strain (Acute) - Assessment Assessment: 1. ANEMIA, MULTIFACTORIAL. 2. A FIB WITH RVR. 3. CHF. 4. NSTEMI. 5. CONFUSION. - Plan Plan: 1. CONSERVATIVE NON-ENDOSCOPIC MANAGEMENT OF ANEMIA. TOO SICK FOR ENDOSCOPIC WORKUP AT THIS POINT. CONSIDER EGD AND/OR COLONOSCOPY FOR THERAPEUTIC PURPOSES ONLY. 2. MONITOR HGB; TRANSFUSE PRN. 3. PUREED DIET VIELKA. 4. PER CARDS/PULM/ID.
[2016-10-30] MEDS: Diltiazem 30 mg Tab PO SCH ×5 (00:44→23:39)
[2016-10-30] MEDS: Albuterol/Ipratropium Neb 3 ML AERS HHN SCH ×6 (03:33→23:46)
[2016-10-30 05:54] LABS: HEMATOCRIT 30.4 % (39.0-49.0); HEMOGLOBIN 9.4 gm/dL (12.6-17.4); MEAN CELL VOLUME 72.1 fl (80-99); MEAN CORPUSCULAR HEMOGLOBIN 22.2 pg (27.0-31.0); MEAN CORPUSCULAR HGB CONC 30.8 pg (28.0-36.0); PLATELET COUNT 252 Th/cmm (150-400); RED BLOOD COUNT 4.22 Mil/cmm (3.80-5.80); RED CELL DISTRIBUTION WIDTH 22.3 % (11.5-20.0); WHITE BLOOD COUNT 9.6 Th/cmm (4.8-10.8)
[2016-10-30 06:16] LABS: INR 1.77 (0.5-1.4); PROTHROMBIN TIME (TEST) 18.2 SECONDS (9.5-11.5)
[2016-10-30] MEDS: Meropenem 500 MG in Sodium Chloride 0.9% 100 ML IV SCH ×3 (06:26→23:39)
--- NOTE | 2016-10-30 07:20 | Progress Notes ---
PULMONARY PROGRESS NOTE PROBLEM LIST: 1. Acute respiratory failure, improving. 2. Acute congestive heart failure, improving. 3. Cardiac arrhythmia, under treatment. 4. Recurrent psychosis, persists. 5. Haziness on the left side, residual fluid with infiltrate. SYMPTOMS: Nil. The patient is a little bit more quiet today and trying to answer to appropriate questions. No respiratory distress, currently on nasal O2 4 liters per minute. PHYSICAL EXAMINATION: VITAL SIGNS: Temperature is 97.2, blood pressure is 121/51, saturation 100% on 4 liters. NECK: Neck veins not visualized. CHEST: Shows much better air entry, improving on the left base. HEART: Irregular. ABDOMEN: Soft, nontender. LABORATORY DATA: Chest x-ray shows mild residual infiltrate in the left side. White count is 10.6 and electrolytes are okay, not significantly changed. BNP is 979. ASSESSMENT: The patient clinically and radiographically much better. PLANS AND SUGGESTIONS: We will go ahead and continue current treatment. We will follow through other studies in the next few days. Okay Step Down if okay with manager intern and go from there. JOB# [id number]
[2016-10-30] MEDS ORDERED: Magnesium Citrate 1.75 GM/300 mL Bottle PO ONE (07:50)
[2016-10-30] MEDS: Budesonide 0.5 Mg/2 mL Ud HHN SCH ×2 (08:16→19:28)
--- NOTE | 2016-10-30 08:23 | General Progress Note ---
Subjective - Review of Systems Service Date: 10/30/16 Subjective: EVENTS NOTED. VIELKA ORAL DIET. HAVING CONSTIPATION. Objective - Results Result Diagrams: 10/30/16 04:36 10/29/16 04:48 Recent Labs: Laboratory Last Values WBC 9.6 Th/cmm (4.8-10.8) 10/30/16 04:36 Corrected WBC (auto) 11.2 Th/cmm 10/23/16 06:52 RBC 4.22 Mil/cmm (3.80-5.80) 10/30/16 04:36 Hgb 9.4 gm/dL (12.6-17.4) L 10/30/16 04:36 Plasma Hgb 7.8 mg/dL (0.0-4.9) H 10/23/16 06:52 Hct 30.4 % (39.0-49.0) L 10/30/16 04:36 MCV 72.1 fl (80-99) L 10/30/16 04:36 MCH 22.2 pg (27.0-31.0) L 10/30/16 04:36 MCHC Differential 30.8 pg (28.0-36.0) 10/30/16 04:36 RDW 22.3 % (11.5-20.0) H 10/30/16 04:36 Plt Count 252 Th/cmm (150-400) 10/30/16 04:36 MPV 9.0 fl 10/30/16 04:36 Band Neutrophils % 1 % (0-10) 10/29/16 04:48 Neutrophils (Manual) 56 % (40-80) 10/29/16 04:48 Lymphocytes 24 % (20-50) 10/29/16 04:48 Monocytes 14 % (2-10) H 10/29/16 04:48 Eosinophils 4 % (0-5) 10/29/16 04:48 Basophils 1 % (0-3) 10/29/16 04:48 Metamyelocytes 1 % (0-0) H 10/22/16 10:55 Myelocytes 3 % 10/23/16 06:52 Nucleated RBCs 4.0 % (0-0) H 10/23/16 06:52 Platelet Estimate ADEQUATE (NORMAL) 10/29/16 04:48 Platelet Morphology GIANT PLATELETS SEEN (NORMAL) 10/29/16 04:48 Polychromasia 1+ 10/29/16 04:48 Anisocytosis 1+ 10/29/16 04:48 Microcytosis 3+ 10/29/16 04:48 RBC Morph Micro Appear ABNORMAL (NORMAL) 10/29/16 04:48 Total Retics Counted 5.8 % (0.5-1.5) H 10/22/16 10:55 Absolute Retic 198.9 Th/cmm 10/22/16 10:55 Corrected Retic Count 3.0 % (0.5-1.5) H 10/22/16 10:55 PT 18.2 SECONDS (9.5-11.5) H 10/30/16 04:36 INR 1.77 (0.5-1.4) H 10/30/16 04:36 Specimen Source Arterial 10/24/16 08:30 Sample Site RB 10/24/16 08:30 pH 7.42 (7.35-7.45) 10/24/16 08:30 pCO2 46.0 mmHg (35.0-45.0) H 10/24/16 08:30 pO2 65.0 mmHg (80.0-100.0) L 10/24/16 08:30 HCO3 29.8 mmol/L (20.0-26.0) H 10/24/16 08:30 Base Excess 4.6 mmol/L (-3.0-3.0) H 10/24/16 08:30 O2 Saturation 93.0 % (92.0-100.0) 10/24/16 08:30 Danish Test NA 10/24/16 08:30 Vent Rate NA 10/24/16 08:30 Inspired O2 37 10/24/16 08:30 Tidal Volume NA 10/24/16 08:30 PEEP NA 10/24/16 08:30 Pressure (ins/psv/peep) NA 10/24/16 08:30 Critical Value SH 10/24/16 08:30 Sodium 136 mEq/L (136-145) 10/29/16 04:48 Potassium 4.1 mEq/L (3.5-5.1) 10/29/16 04:48 Chloride 94 mEq/L (98-107) L 10/29/16 04:48 Carbon Dioxide 35.4 mEq/L (21.0-31.0) H 10/29/16 04:48 Anion Gap 10.7 (7.0-16.0) 10/29/16 04:48 BUN 33 mg/dL (7-25) H 10/29/16 04:48 Creatinine 1.3 mg/dL (0.7-1.3) 10/29/16 04:48 Est GFR ( Amer) TNP 10/29/16 04:48 Est GFR (Non-Af Amer) TNP 10/29/16 04:48 BUN/Creatinine Ratio 25.4 10/29/16 04:48 Glucose 92 mg/dL (70-105) 10/29/16 04:48 Whole Bld Lactic Acid 1.51 mmol/L (0.60-2.00) 10/22/16 10:55 Calcium 9.8 mg/dL (8.6-10.3) 10/29/16 04:48 Magnesium 2.2 mg/dL (1.9-2.7) 10/23/16 06:52 Iron 12 ug/dL (38-169) L 10/22/16 10:55 TIBC 541 ug/dL (250-450) H 10/22/16 10:55 Iron Saturation 2 % (15-55) L 10/22/16 10:55 Unsaturated IBC 529 ug/dL (111-343) H 10/22/16 10:55 Total Bilirubin 0.8 mg/dL (0.3-1.0) 10/27/16 07:30 Direct Bilirubin 0.10 mg/dL (0.0-0.2) 10/23/16 06:52 AST 46 U/L (13-39) H 10/27/16 07:30 ALT 53 U/L (7-52) H 10/27/16 07:30 Alkaline Phosphatase 32 U/L (34-104) L 10/27/16 07:30 Ammonia 35 umol/L (16-53) 10/25/16 07:20 Troponin I 0.63 ng/mL (0.01-0.05) H* 10/23/16 11:00 B-Natriuretic Peptide 979.0 pg/mL (5.0-100.0) H 10/29/16 04:48 Total Protein 6.9 gm/dL (6.0-8.3) 10/27/16 07:30 Albumin 3.4 gm/dL (4.2-5.5) L 10/27/16 07:30 Globulin 3.5 gm/dL 10/27/16 07:30 Albumin/Globulin Ratio 1.0 (1.0-1.8) 10/27/16 07:30 Vitamin B12 922 pg/mL (211-946) 10/27/16 07:30 Folic Acid >20.0 ng/mL (>3.0) 10/22/16 10:55 Free T4 1.42 ng/dL (0.82-1.77) 10/23/16 06:52 Free T3 2.3 pg/mL (2.0-4.4) 10/23/16 06:52 TSH 3.23 uIU/ml (0.34-5.60) 10/27/16 07:30 Urine Source RANDOM 10/24/16 03:28 Urine Color YELLOW 10/24/16 03:28 Urine Clarity HAZY (CLEAR) 10/24/16 03:28 Urine pH 5.5 10/24/16 03:28 Ur Specific [place] 1.025 (1.005-1.030) 10/24/16 03:28 Urine Protein 100 mg/dL (NEGATIVE) H 10/24/16 03:28 Urine Glucose (UA) NEGATIVE mg/dL (NEGATIVE) 10/24/16 03:28 Urine Ketones NEGATIVE mg/dL (NEGATIVE) 10/24/16 03:28 Urine Blood MODERATE (NEGATIVE) H 10/24/16 03:28 Urine Nitrate NEGATIVE (NEGATIVE) 10/24/16 03:28 Urine Bilirubin NEGATIVE (NEGATIVE) 10/24/16 03:28 Urine Urobilinogen 0.2 E.U./dL (0.2 - 1.0) 10/24/16 03:28 Ur Leukocyte Esterase TRACE (NEGATIVE) H 10/24/16 03:28 Urine RBC 25-50 /hpf (0-5) H 10/24/16 03:28 Urine WBC 10-25 /hpf (0-5) H 10/24/16 03:28 Ur Epithelial Cells FEW /lpf (FEW) 10/24/16 03:28 Urine Bacteria MODERATE /hpf (NONE SEEN) 10/24/16 03:28 RPR NONREACTIVE (NONREACTIVE) 10/27/16 07:30 Influenza A (Rapid) NEG FOR INF A 10/24/16 06:30 Influenza B (Rapid) NEG FOR INF B 10/24/16 06:30 Blood Type A POSITIVE 10/22/16 16:55 Antibody Screen NEGATIVE 10/22/16 16:55 Crossmatch See Detail 10/22/16 16:55 - Physical Exam Vitals and I&O: Vital Signs Temp 97.5 F 10/29/16 20:00 Pulse 94 10/30/16 06:28 Resp 20 10/30/16 03:35 BP 120/66 10/29/16 20:00 Pulse Ox 99 10/30/16 03:35 Intake & Output 10/29/16 10/30/16 10/30/16 18:59 06:59 18:59 Intake Total 1270 100 Output Total 1650 Balance -380 100 Intake: Intake, IV Amount 200 100 Meropenem 500 mg In 200 100 Sodium Chloride 0.9% 100 ml @ 100 mls/hr IV Q8H [facility] Rx#:[id number] Oral 1070 Output: Urine 1650 Active Medications: Current Medications Acetaminophen (Tylenol 650mg/20.3ml Suspension) 650 mg PO Q4H PRN PRN Reason: Abdominal Pain Stop: 12/26/16 14:24 Acetaminophen/Hydrocodone Bitart ([place] 5mg/325mg) 1 tab PO Q4H PRN PRN Reason: PAIN / RESTLESSNESS Stop: 12/21/16 22:14 Last Admin: 10/29/16 14:21 Dose: 1 tab Albuterol/Ipratropium (Duoneb Neb) 3 ml HHN Q2H PRN PRN Reason: Respiratory Distress Stop: 12/21/16 23:29 Last Admin: 10/23/16 03:05 Dose: 3 ml Albuterol/Ipratropium (Duoneb Neb) 3 ml HHN Q4HRT [facility] Stop: 12/22/16 02:59 Last Admin: 10/30/16 08:17 Dose: 3 ml Amiodarone HCl (Cordarone) 200 mg PO DAILY [facility] Stop: 12/25/16 20:59 Last Admin: 10/29/16 09:39 Dose: 200 mg Budesonide (Pulmicort) 0.5 mg HHN BIDRT [facility] Stop: 12/22/16 06:59 Last Admin: 10/30/16 08:16 Dose: 0.5 mg Digoxin (Lanoxin) 0.25 mg IVP DAILY [facility] Stop: 12/25/16 08:59 Last Admin: 10/29/16 09:39 Dose: 0.25 mg Diltiazem HCl (Cardizem) 20 mg IVP Q4HR PRN PRN Reason: HR >120 Stop: 12/22/16 10:49 Last Admin: 10/29/16 06:10 Dose: 20 mg Diltiazem HCl (Cardizem) 60 mg PO Q6HR [facility] Stop: 12/27/16 11:59 Last Admin: 10/30/16 06:28 Dose: Not Given Furosemide (Lasix) 40 mg IVP BID [facility] Stop: 12/22/16 16:59 Last Admin: 10/29/16 17:55 Dose: 40 mg Meropenem 500 mg/ Sodium (Chloride) 100 mls @ 100 mls/hr IV Q8H [facility] Stop: 12/25/16 14:59 Last Admin: 10/30/16 06:26 Dose: 100 mls/hr Diltiazem HCl 125 mg/ Dextrose 125 mls @ 4.8 mls/hr IV TITR [facility] Stop: 12/26/16 15:14 Last Admin: 10/27/16 14:00 Dose: 4.8 mls/hr Lactobacillus Rhamnosus (Culturelle) 1 each PO DAILY [facility] Stop: 12/27/16 08:59 Last Admin: 10/29/16 09:39 Dose: 1 each Lorazepam (Ativan) 1 mg IVP Q4HR PRN; Protocol PRN Reason: Agitation Stop: 12/22/16 13:55 Last Admin: 10/29/16 15:40 Dose: 1 mg Magnesium Citrate (Citroma) 17.5 gm PO X1 ONE Stop: 10/30/16 07:51 Miscellaneous (Probiotic Screen) 1 ea MC PRN PRN PRN Reason: PROTOCOL Stop: 12/26/16 16:17 Polyethylene Glycol (Miralax) 17 gm PO DAILY [facility] Stop: 12/29/16 08:59 Tamsulosin HCl (Flomax) 0.4 mg PO HS [facility] Stop: 12/21/16 20:59 Last Admin: 10/29/16 21:00 Dose: Not Given General: No acute distress HEENT: Atraumatic Neck: Supple Cardiovascular: Regular rate Lungs: Normal air movement Abdomen: Bowel sounds, Soft, no Tender - Procedures Procedures: Procedures Procedure Code Date REPAIR FACE SKIN, EXTERNAL APPROACH [id number] 10/14/15 RPR S/N/AX/GEN/TRNK 2.5CM/< 60468 10/14/15 Assessment/Plan - Problem List Patient Problems: All Active Problems BILATERAL LEG PAIN AND UNABLE TO AMBULAT (Acute) Lumbar spine strain (Acute) - Assessment Assessment: 1. ANEMIA, MULTIFACTORIAL. 2. A FIB WITH RVR. 3. CHF. 4. NSTEMI. 5. CONFUSION. 6. CONSTIPATION. - Plan Plan: 1. CONSERVATIVE NON-ENDOSCOPIC MANAGEMENT OF ANEMIA. TOO SICK FOR ENDOSCOPIC WORKUP AT THIS POINT. CONSIDER EGD AND/OR COLONOSCOPY FOR THERAPEUTIC PURPOSES ONLY. 2. MONITOR HGB; TRANSFUSE PRN. 3. PUREED DIET VIELKA. 4. PER CARDS/PULM/ID. 5. LAXATIVES.
[2016-10-30] MEDS: Hydrocodone/APAP 5mg/325mg Tab PO PRN (08:30)
[2016-10-30] MEDS: POLYETHYLENE GLYCOL 3350 17 GM PACK PO SCH (09:51)
[2016-10-30] MEDS: Lactobacillus Rhamnosus 10 Billion CFU Capsule PO SCH (09:51)
[2016-10-30 12:27] LABS: ANISOCYTOSIS 1+; EOSINOPHIL 3 % (0-5); MICROCYTOSIS 3+; NEUTROPHILS 60 % (40-80); PLATELET ESTIMATE ADEQUATE (NORMAL); PLATELET MORPHOLOGY NORMAL (NORMAL); TOTAL CELLS COUNTED 100
--- NOTE | 2016-10-30 13:36 | Infectious Disease Prog Note ---
Infectious Disease Subjective - Review of Systems Service Date: 10/30/16 Subjective: No Change. Infectious Disease Objective - Results Result Diagrams: 10/30/16 04:36 10/29/16 04:48 Recent Labs: Laboratory Last Values WBC 9.6 Th/cmm (4.8-10.8) 10/30/16 04:36 Corrected WBC (auto) 11.2 Th/cmm 10/23/16 06:52 RBC 4.22 Mil/cmm (3.80-5.80) 10/30/16 04:36 Hgb 9.4 gm/dL (12.6-17.4) L 10/30/16 04:36 Plasma Hgb 7.8 mg/dL (0.0-4.9) H 10/23/16 06:52 Hct 30.4 % (39.0-49.0) L 10/30/16 04:36 MCV 72.1 fl (80-99) L 10/30/16 04:36 MCH 22.2 pg (27.0-31.0) L 10/30/16 04:36 MCHC Differential 30.8 pg (28.0-36.0) 10/30/16 04:36 RDW 22.3 % (11.5-20.0) H 10/30/16 04:36 Plt Count 252 Th/cmm (150-400) 10/30/16 04:36 MPV 9.0 fl 10/30/16 04:36 Band Neutrophils % 1 % (0-10) 10/29/16 04:48 Neutrophils (Manual) 60 % (40-80) 10/30/16 04:36 Lymphocytes 15 % (20-50) L 10/30/16 04:36 Monocytes 22 % (2-10) H 10/30/16 04:36 Eosinophils 3 % (0-5) 10/30/16 04:36 Basophils 1 % (0-3) 10/29/16 04:48 Metamyelocytes 1 % (0-0) H 10/22/16 10:55 Myelocytes 3 % 10/23/16 06:52 Nucleated RBCs 4.0 % (0-0) H 10/23/16 06:52 Platelet Estimate ADEQUATE (NORMAL) 10/30/16 04:36 Platelet Morphology NORMAL (NORMAL) 10/30/16 04:36 Polychromasia 1+ 10/29/16 04:48 Anisocytosis 1+ 10/30/16 04:36 Microcytosis 3+ 10/30/16 04:36 RBC Morph Micro Appear ABNORMAL (NORMAL) 10/30/16 04:36 Total Retics Counted 5.8 % (0.5-1.5) H 10/22/16 10:55 Absolute Retic 198.9 Th/cmm 10/22/16 10:55 Corrected Retic Count 3.0 % (0.5-1.5) H 10/22/16 10:55 PT 18.2 SECONDS (9.5-11.5) H 10/30/16 04:36 INR 1.77 (0.5-1.4) H 10/30/16 04:36 Specimen Source Arterial 10/24/16 08:30 Sample Site RB 10/24/16 08:30 pH 7.42 (7.35-7.45) 10/24/16 08:30 pCO2 46.0 mmHg (35.0-45.0) H 10/24/16 08:30 pO2 65.0 mmHg (80.0-100.0) L 10/24/16 08:30 HCO3 29.8 mmol/L (20.0-26.0) H 10/24/16 08:30 Base Excess 4.6 mmol/L (-3.0-3.0) H 10/24/16 08:30 O2 Saturation 93.0 % (92.0-100.0) 10/24/16 08:30 Danish Test NA 10/24/16 08:30 Vent Rate NA 10/24/16 08:30 Inspired O2 37 10/24/16 08:30 Tidal Volume NA 10/24/16 08:30 PEEP NA 10/24/16 08:30 Pressure (ins/psv/peep) NA 10/24/16 08:30 Critical Value SH 10/24/16 08:30 Sodium 136 mEq/L (136-145) 10/29/16 04:48 Potassium 4.1 mEq/L (3.5-5.1) 10/29/16 04:48 Chloride 94 mEq/L (98-107) L 10/29/16 04:48 Carbon Dioxide 35.4 mEq/L (21.0-31.0) H 10/29/16 04:48 Anion Gap 10.7 (7.0-16.0) 10/29/16 04:48 BUN 33 mg/dL (7-25) H 10/29/16 04:48 Creatinine 1.3 mg/dL (0.7-1.3) 10/29/16 04:48 Est GFR ( Amer) TNP 10/29/16 04:48 Est GFR (Non-Af Amer) TNP 10/29/16 04:48 BUN/Creatinine Ratio 25.4 10/29/16 04:48 Glucose 92 mg/dL (70-105) 10/29/16 04:48 Whole Bld Lactic Acid 1.51 mmol/L (0.60-2.00) 10/22/16 10:55 Calcium 9.8 mg/dL (8.6-10.3) 10/29/16 04:48 Magnesium 2.2 mg/dL (1.9-2.7) 10/23/16 06:52 Iron 12 ug/dL (38-169) L 10/22/16 10:55 TIBC 541 ug/dL (250-450) H 10/22/16 10:55 Iron Saturation 2 % (15-55) L 10/22/16 10:55 Unsaturated IBC 529 ug/dL (111-343) H 10/22/16 10:55 Total Bilirubin 0.8 mg/dL (0.3-1.0) 10/27/16 07:30 Direct Bilirubin 0.10 mg/dL (0.0-0.2) 10/23/16 06:52 AST 46 U/L (13-39) H 10/27/16 07:30 ALT 53 U/L (7-52) H 10/27/16 07:30 Alkaline Phosphatase 32 U/L (34-104) L 10/27/16 07:30 Ammonia 35 umol/L (16-53) 10/25/16 07:20 Troponin I 0.63 ng/mL (0.01-0.05) H* 10/23/16 11:00 B-Natriuretic Peptide 979.0 pg/mL (5.0-100.0) H 10/29/16 04:48 Total Protein 6.9 gm/dL (6.0-8.3) 10/27/16 07:30 Albumin 3.4 gm/dL (4.2-5.5) L 10/27/16 07:30 Globulin 3.5 gm/dL 10/27/16 07:30 Albumin/Globulin Ratio 1.0 (1.0-1.8) 10/27/16 07:30 Vitamin B12 922 pg/mL (211-946) 10/27/16 07:30 Folic Acid >20.0 ng/mL (>3.0) 10/22/16 10:55 Free T4 1.42 ng/dL (0.82-1.77) 10/23/16 06:52 Free T3 2.3 pg/mL (2.0-4.4) 10/23/16 06:52 TSH 3.23 uIU/ml (0.34-5.60) 10/27/16 07:30 Urine Source RANDOM 10/24/16 03:28 Urine Color YELLOW 10/24/16 03:28 Urine Clarity HAZY (CLEAR) 10/24/16 03:28 Urine pH 5.5 10/24/16 03:28 Ur Specific [place] 1.025 (1.005-1.030) 10/24/16 03:28 Urine Protein 100 mg/dL (NEGATIVE) H 10/24/16 03:28 Urine Glucose (UA) NEGATIVE mg/dL (NEGATIVE) 10/24/16 03:28 Urine Ketones NEGATIVE mg/dL (NEGATIVE) 10/24/16 03:28 Urine Blood MODERATE (NEGATIVE) H 10/24/16 03:28 Urine Nitrate NEGATIVE (NEGATIVE) 10/24/16 03:28 Urine Bilirubin NEGATIVE (NEGATIVE) 10/24/16 03:28 Urine Urobilinogen 0.2 E.U./dL (0.2 - 1.0) 10/24/16 03:28 Ur Leukocyte Esterase TRACE (NEGATIVE) H 10/24/16 03:28 Urine RBC 25-50 /hpf (0-5) H 10/24/16 03:28 Urine WBC 10-25 /hpf (0-5) H 10/24/16 03:28 Ur Epithelial Cells FEW /lpf (FEW) 10/24/16 03:28 Urine Bacteria MODERATE /hpf (NONE SEEN) 10/24/16 03:28 RPR NONREACTIVE (NONREACTIVE) 10/27/16 07:30 Influenza A (Rapid) NEG FOR INF A 10/24/16 06:30 Influenza B (Rapid) NEG FOR INF B 10/24/16 06:30 Blood Type A POSITIVE 10/22/16 16:55 Antibody Screen NEGATIVE 10/22/16 16:55 Crossmatch See Detail 10/22/16 16:55 - Physical Exam Vitals and I&O: Vital Signs Temp 97.6 F 10/30/16 10:00 Pulse 96 10/30/16 11:42 Resp 20 10/30/16 11:17 BP 126/92 10/30/16 10:00 Pulse Ox 99 10/30/16 11:17 Intake & Output 10/29/16 10/30/16 10/30/16 18:59 06:59 18:59 Intake Total 1270 100 400 Output Total 1650 Balance -380 100 400 Intake: Intake, IV Amount 200 100 Meropenem 500 mg In 200 100 Sodium Chloride 0.9% 100 ml @ 100 mls/hr IV Q8H [facility] Rx#:[id number] Oral 1070 400 Output: Urine 1650 Active Medications: Current Medications Acetaminophen (Tylenol 650mg/20.3ml Suspension) 650 mg PO Q4H PRN PRN Reason: Abdominal Pain Stop: 12/26/16 14:24 Albuterol/Ipratropium (Duoneb Neb) 3 ml HHN Q2H PRN PRN Reason: Respiratory Distress Stop: 12/21/16 23:29 Last Admin: 10/23/16 03:05 Dose: 3 ml Albuterol/Ipratropium (Duoneb Neb) 3 ml HHN Q4HRT [facility] Stop: 12/22/16 02:59 Last Admin: 10/30/16 11:15 Dose: 3 ml Amiodarone HCl (Cordarone) 200 mg PO DAILY [facility] Stop: 12/25/16 20:59 Last Admin: 10/30/16 09:50 Dose: 200 mg Budesonide (Pulmicort) 0.5 mg HHN BIDRT [facility] Stop: 12/22/16 06:59 Last Admin: 10/30/16 08:16 Dose: 0.5 mg Digoxin (Lanoxin) 0.25 mg IVP DAILY [facility] Stop: 12/25/16 08:59 Last Admin: 10/30/16 09:51 Dose: 0.25 mg Diltiazem HCl (Cardizem) 20 mg IVP Q4HR PRN PRN Reason: HR >120 Stop: 12/22/16 10:49 Last Admin: 10/29/16 06:10 Dose: 20 mg Diltiazem HCl (Cardizem) 60 mg PO Q6HR [facility] Stop: 12/27/16 11:59 Last Admin: 10/30/16 11:42 Dose: 60 mg Furosemide (Lasix) 40 mg IVP BID [facility] Stop: 12/22/16 16:59 Last Admin: 10/30/16 09:49 Dose: 40 mg Meropenem 500 mg/ Sodium (Chloride) 100 mls @ 100 mls/hr IV Q8H [facility] Stop: 12/25/16 14:59 Last Admin: 10/30/16 06:26 Dose: 100 mls/hr Lactobacillus Rhamnosus (Culturelle) 1 each PO DAILY [facility] Stop: 12/27/16 08:59 Last Admin: 10/30/16 09:51 Dose: 1 each Lorazepam (Ativan) 1 mg IVP Q4HR PRN; Protocol PRN Reason: Agitation Stop: 12/22/16 13:55 Last Admin: 10/30/16 11:35 Dose: 1 mg Miscellaneous (Probiotic Screen) 1 ea MC PRN PRN PRN Reason: PROTOCOL Stop: 12/26/16 16:17 Polyethylene Glycol (Miralax) 17 gm PO DAILY [facility] Stop: 12/29/16 08:59 Last Admin: 10/30/16 09:51 Dose: 17 gm Tamsulosin HCl (Flomax) 0.4 mg PO HS [facility] Stop: 12/21/16 20:59 Last Admin: 10/29/16 21:00 Dose: Not Given Warfarin Sodium (Coumadin) 6 mg PO C [facility] Stop: 10/30/16 21:00 General: no acute distress, well developed, well nourished HEENT: atraumatic, normocephalic, PERRLA, EOMI Neck: supple Cardiovascular: S1S2, regular Lungs: clear to auscultation bilaterally, clear to percussion Abdomen: soft, no tender, no distended Extremities: no cyanosis, no clubbing, no edema Neurological: awake, alert - Procedures Procedures: Procedures Procedure Code Date REPAIR FACE SKIN, EXTERNAL APPROACH [id number] 10/14/15 RPR S/N/AX/GEN/TRNK 2.5CM/< 84703 10/14/15 Infectious Disease Assmt/Plan - Problem List Patient Problems: All Active Problems BILATERAL LEG PAIN AND UNABLE TO AMBULAT (Acute) Lumbar spine strain (Acute) - Assessment Assessment: 1. UTI- ESBL E coli. 2. SVT , afib. 3. Dementia. 4. HTN. - Plan Plan: Continue Meropenem.
[2016-10-31] MEDS: Albuterol/Ipratropium Neb 3 ML AERS HHN SCH ×6 (03:10→23:19)
[2016-10-31] MEDS: Meropenem 500 MG in Sodium Chloride 0.9% 100 ML IV SCH ×3 (06:40→23:11)
[2016-10-31] MEDS: Diltiazem 30 mg Tab PO SCH ×3 (06:40→18:31)
[2016-10-31 07:40] LABS: ANION GAP 8.8 (7.0-16.0); BUN - UREA NITROGEN 33 mg/dL (7-25); BUN/CREATININE RATIO 27.5; CALCIUM SERUM 9.6 mg/dL (8.6-10.3); CARBON DIOXIDE 36.5 mEq/L (21.0-31.0); CHLORIDE 98 mEq/L (98-107); CREATININE - SERUM 1.2 mg/dL (0.7-1.3); GLUCOSE 101 mg/dL (70-105); POTASSIUM SERUM 4.3 mEq/L (3.5-5.1); SODIUM SERUM 139 mEq/L (136-145)
[2016-10-31 08:00] LABS: INR 1.68 (0.5-1.4); PROTHROMBIN TIME (TEST) 17.2 SECONDS (9.5-11.5)
[2016-10-31] MEDS: Budesonide 0.5 Mg/2 mL Ud HHN SCH ×2 (08:20→19:40)
[2016-10-31] MEDS: Lactobacillus Rhamnosus 10 Billion CFU Capsule PO SCH (09:28)
[2016-10-31] MEDS: POLYETHYLENE GLYCOL 3350 17 GM PACK PO SCH (09:35)
--- NOTE | 2016-10-31 09:54 | Progress Notes ---
Covering for Dr. Blackmon. Case was discussed with staff of the patient, reviewed records. The patient is more alert, yet confused. He is unable to carry on conversation at times, though the staff reported that they can talk to him sometimes. He is still getting agitated at times. He is still medically not cleared. He is compliant with the medication with no side effects. He is not on any psychotropic medications, only Ativan as needed. The staff reports in general, he is manageable and needs followup with the psychiatrist upon discharge. Thank you very much for allowing me to participate in the care of this most interesting gentleman. JOB# [id number]
--- NOTE | 2016-10-31 14:19 | Progress Notes ---
PROBLEM LIST: 1. Acute respiratory failure, improved. 2. Congestive heart failure, improved. 3. Cardiac arrhythmia, stable. 4. Psychosis. SYMPTOMS: Nil. The patient appears to be little bit more quite today, still periodically coughing, but no meaningful communication could be done. PHYSICAL EXAMINATION: VITAL SIGNS: Temperature is 97, blood pressure 111/57, saturation 100% on 2 liters of oxygen. NECK: Veins not visualized. CHEST: Shows diminished air entry with occasional secretory noise. HEART: Regular. LABORATORY DATA: White count is 9.6, hemoglobin is 9.4, INR is 1.7. ASSESSMENT: The patient clinically appears to be doing much better except for more ____ psychological issues with agitation, restless, etc. PLANS AND SUGGESTIONS: We will continue current treatment. Follow through chest x-ray in the next few days and go from there. JOB# [id number]
--- NOTE | 2016-10-31 20:45 | General Progress Note ---
Subjective - Review of Systems Service Date: 10/31/16 Subjective: EVENTS NOTED. VIELKA ORAL DIET. HAD BM. Objective - Results Result Diagrams: 10/30/16 04:36 10/31/16 06:30 Recent Labs: Laboratory Last Values WBC 9.6 Th/cmm (4.8-10.8) 10/30/16 04:36 Corrected WBC (auto) 11.2 Th/cmm 10/23/16 06:52 RBC 4.22 Mil/cmm (3.80-5.80) 10/30/16 04:36 Hgb 9.4 gm/dL (12.6-17.4) L 10/30/16 04:36 Plasma Hgb 7.8 mg/dL (0.0-4.9) H 10/23/16 06:52 Hct 30.4 % (39.0-49.0) L 10/30/16 04:36 MCV 72.1 fl (80-99) L 10/30/16 04:36 MCH 22.2 pg (27.0-31.0) L 10/30/16 04:36 MCHC Differential 30.8 pg (28.0-36.0) 10/30/16 04:36 RDW 22.3 % (11.5-20.0) H 10/30/16 04:36 Plt Count 252 Th/cmm (150-400) 10/30/16 04:36 MPV 9.0 fl 10/30/16 04:36 Band Neutrophils % 1 % (0-10) 10/29/16 04:48 Neutrophils (Manual) 60 % (40-80) 10/30/16 04:36 Lymphocytes 15 % (20-50) L 10/30/16 04:36 Monocytes 22 % (2-10) H 10/30/16 04:36 Eosinophils 3 % (0-5) 10/30/16 04:36 Basophils 1 % (0-3) 10/29/16 04:48 Metamyelocytes 1 % (0-0) H 10/22/16 10:55 Myelocytes 3 % 10/23/16 06:52 Nucleated RBCs 4.0 % (0-0) H 10/23/16 06:52 Platelet Estimate ADEQUATE (NORMAL) 10/30/16 04:36 Platelet Morphology NORMAL (NORMAL) 10/30/16 04:36 Polychromasia 1+ 10/29/16 04:48 Anisocytosis 1+ 10/30/16 04:36 Microcytosis 3+ 10/30/16 04:36 RBC Morph Micro Appear ABNORMAL (NORMAL) 10/30/16 04:36 Total Retics Counted 5.8 % (0.5-1.5) H 10/22/16 10:55 Absolute Retic 198.9 Th/cmm 10/22/16 10:55 Corrected Retic Count 3.0 % (0.5-1.5) H 10/22/16 10:55 PT 17.2 SECONDS (9.5-11.5) H 10/31/16 06:30 INR 1.68 (0.5-1.4) H 10/31/16 06:30 Specimen Source Arterial 10/24/16 08:30 Sample Site RB 10/24/16 08:30 pH 7.42 (7.35-7.45) 10/24/16 08:30 pCO2 46.0 mmHg (35.0-45.0) H 10/24/16 08:30 pO2 65.0 mmHg (80.0-100.0) L 10/24/16 08:30 HCO3 29.8 mmol/L (20.0-26.0) H 10/24/16 08:30 Base Excess 4.6 mmol/L (-3.0-3.0) H 10/24/16 08:30 O2 Saturation 93.0 % (92.0-100.0) 10/24/16 08:30 Danish Test NA 10/24/16 08:30 Vent Rate NA 10/24/16 08:30 Inspired O2 37 10/24/16 08:30 Tidal Volume NA 10/24/16 08:30 PEEP NA 10/24/16 08:30 Pressure (ins/psv/peep) NA 10/24/16 08:30 Critical Value SH 10/24/16 08:30 Sodium 139 mEq/L (136-145) 10/31/16 06:30 Potassium 4.3 mEq/L (3.5-5.1) 10/31/16 06:30 Chloride 98 mEq/L (98-107) 10/31/16 06:30 Carbon Dioxide 36.5 mEq/L (21.0-31.0) H 10/31/16 06:30 Anion Gap 8.8 (7.0-16.0) 10/31/16 06:30 BUN 33 mg/dL (7-25) H 10/31/16 06:30 Creatinine 1.2 mg/dL (0.7-1.3) 10/31/16 06:30 Est GFR ( Amer) TNP 10/31/16 06:30 Est GFR (Non-Af Amer) TNP 10/31/16 06:30 BUN/Creatinine Ratio 27.5 10/31/16 06:30 Glucose 101 mg/dL (70-105) 10/31/16 06:30 Whole Bld Lactic Acid 1.51 mmol/L (0.60-2.00) 10/22/16 10:55 Calcium 9.6 mg/dL (8.6-10.3) 10/31/16 06:30 Magnesium 2.2 mg/dL (1.9-2.7) 10/23/16 06:52 Iron 12 ug/dL (38-169) L 10/22/16 10:55 TIBC 541 ug/dL (250-450) H 10/22/16 10:55 Iron Saturation 2 % (15-55) L 10/22/16 10:55 Unsaturated IBC 529 ug/dL (111-343) H 10/22/16 10:55 Total Bilirubin 0.8 mg/dL (0.3-1.0) 10/27/16 07:30 Direct Bilirubin 0.10 mg/dL (0.0-0.2) 10/23/16 06:52 AST 46 U/L (13-39) H 10/27/16 07:30 ALT 53 U/L (7-52) H 10/27/16 07:30 Alkaline Phosphatase 32 U/L (34-104) L 10/27/16 07:30 Ammonia 35 umol/L (16-53) 10/25/16 07:20 Troponin I 0.63 ng/mL (0.01-0.05) H* 10/23/16 11:00 B-Natriuretic Peptide 979.0 pg/mL (5.0-100.0) H 10/29/16 04:48 Total Protein 6.9 gm/dL (6.0-8.3) 10/27/16 07:30 Albumin 3.4 gm/dL (4.2-5.5) L 10/27/16 07:30 Globulin 3.5 gm/dL 10/27/16 07:30 Albumin/Globulin Ratio 1.0 (1.0-1.8) 10/27/16 07:30 Vitamin B12 922 pg/mL (211-946) 10/27/16 07:30 Folic Acid >20.0 ng/mL (>3.0) 10/22/16 10:55 Free T4 1.42 ng/dL (0.82-1.77) 10/23/16 06:52 Free T3 2.3 pg/mL (2.0-4.4) 10/23/16 06:52 TSH 3.23 uIU/ml (0.34-5.60) 10/27/16 07:30 Urine Source RANDOM 10/24/16 03:28 Urine Color YELLOW 10/24/16 03:28 Urine Clarity HAZY (CLEAR) 10/24/16 03:28 Urine pH 5.5 10/24/16 03:28 Ur Specific [place] 1.025 (1.005-1.030) 10/24/16 03:28 Urine Protein 100 mg/dL (NEGATIVE) H 10/24/16 03:28 Urine Glucose (UA) NEGATIVE mg/dL (NEGATIVE) 10/24/16 03:28 Urine Ketones NEGATIVE mg/dL (NEGATIVE) 10/24/16 03:28 Urine Blood MODERATE (NEGATIVE) H 10/24/16 03:28 Urine Nitrate NEGATIVE (NEGATIVE) 10/24/16 03:28 Urine Bilirubin NEGATIVE (NEGATIVE) 10/24/16 03:28 Urine Urobilinogen 0.2 E.U./dL (0.2 - 1.0) 10/24/16 03:28 Ur Leukocyte Esterase TRACE (NEGATIVE) H 10/24/16 03:28 Urine RBC 25-50 /hpf (0-5) H 10/24/16 03:28 Urine WBC 10-25 /hpf (0-5) H 10/24/16 03:28 Ur Epithelial Cells FEW /lpf (FEW) 10/24/16 03:28 Urine Bacteria MODERATE /hpf (NONE SEEN) 10/24/16 03:28 Stool Occult Blood POSITIVE (NEGATIVE) 10/31/16 02:00 RPR NONREACTIVE (NONREACTIVE) 10/27/16 07:30 Influenza A (Rapid) NEG FOR INF A 10/24/16 06:30 Influenza B (Rapid) NEG FOR INF B 10/24/16 06:30 Blood Type A POSITIVE 10/22/16 16:55 Antibody Screen NEGATIVE 10/22/16 16:55 Crossmatch See Detail 10/22/16 16:55 - Physical Exam Vitals and I&O: Vital Signs Temp 97.6 F 10/31/16 20:00 Pulse 113 10/31/16 20:00 Resp 25 10/31/16 20:00 BP 130/66 10/31/16 20:00 Pulse Ox 98 10/31/16 20:00 Intake & Output 10/31/16 10/31/16 11/01/16 06:59 18:59 06:59 Intake Total 550 1600 Output Total 1000 1400 Balance -450 200 Weight (lbs) 80.966 kg Intake: Intake, IV Amount 100 100 Meropenem 500 mg In 100 100 Sodium Chloride 0.9% 100 ml @ 100 mls/hr IV Q8H [facility] Rx#:[id number] Oral 450 1500 Output: Urine 1000 1400 Other: # Bowel Movements 2 2 Stool Characteristics Soft Brown Active Medications: Current Medications Acetaminophen (Tylenol 650mg/20.3ml Suspension) 650 mg PO Q4H PRN PRN Reason: Abdominal Pain Stop: 12/26/16 14:24 Albuterol/Ipratropium (Duoneb Neb) 3 ml HHN Q2H PRN PRN Reason: Respiratory Distress Stop: 12/21/16 23:29 Last Admin: 10/23/16 03:05 Dose: 3 ml Albuterol/Ipratropium (Duoneb Neb) 3 ml HHN Q4HRT [facility] Stop: 12/22/16 02:59 Last Admin: 10/31/16 19:40 Dose: 3 ml Amiodarone HCl (Cordarone) 200 mg PO DAILY [facility] Stop: 12/25/16 20:59 Last Admin: 10/31/16 09:29 Dose: 200 mg Budesonide (Pulmicort) 0.5 mg HHN BIDRT [facility] Stop: 12/22/16 06:59 Last Admin: 10/31/16 19:40 Dose: 0.5 mg Digoxin (Lanoxin) 0.25 mg IVP DAILY [facility] Stop: 12/25/16 08:59 Last Admin: 10/31/16 09:28 Dose: 0.25 mg Diltiazem HCl (Cardizem) 20 mg IVP Q4HR PRN PRN Reason: HR >120 Stop: 12/22/16 10:49 Last Admin: 10/29/16 06:10 Dose: 20 mg Diltiazem HCl (Cardizem) 60 mg PO Q6HR [facility] Stop: 12/27/16 11:59 Last Admin: 10/31/16 18:31 Dose: 60 mg Furosemide (Lasix) 40 mg IVP BID [facility] Stop: 12/22/16 16:59 Last Admin: 10/31/16 18:31 Dose: 40 mg Meropenem 500 mg/ Sodium (Chloride) 100 mls @ 100 mls/hr IV Q8H [facility] Stop: 12/25/16 14:59 Last Admin: 10/31/16 15:42 Dose: 100 mls/hr Lactobacillus Rhamnosus (Culturelle) 1 each PO DAILY [facility] Stop: 12/27/16 08:59 Last Admin: 10/31/16 09:28 Dose: 1 each Lorazepam (Ativan) 1 mg IVP Q4HR PRN; Protocol PRN Reason: Agitation Stop: 12/30/16 12:11 Miscellaneous (Probiotic Screen) 1 ea MC PRN PRN PRN Reason: PROTOCOL Stop: 12/26/16 16:17 Polyethylene Glycol (Miralax) 17 gm PO DAILY [facility] Stop: 12/29/16 08:59 Last Admin: 10/31/16 09:35 Dose: 17 gm Tamsulosin HCl (Flomax) 0.4 mg PO HS [facility] Stop: 12/21/16 20:59 Last Admin: 10/30/16 21:25 Dose: 0.4 mg Warfarin Sodium (Coumadin) 7.5 mg PO C [facility] Stop: 10/31/16 21:00 Last Admin: 10/31/16 12:30 Dose: 7.5 mg General: Cooperative, No acute distress HEENT: Atraumatic Neck: Supple Cardiovascular: Regular rate Lungs: Other (RHONCHI) Abdomen: Bowel sounds, Soft, no Tender - Procedures Procedures: Procedures Procedure Code Date REPAIR FACE SKIN, EXTERNAL APPROACH [id number] 10/14/15 RPR S/N/AX/GEN/TRNK 2.5CM/< 24909 10/14/15 Assessment/Plan - Problem List Patient Problems: All Active Problems BILATERAL LEG PAIN AND UNABLE TO AMBULAT (Acute) Lumbar spine strain (Acute) - Assessment Assessment: 1. ANEMIA, MULTIFACTORIAL. 2. A FIB WITH RVR. 3. CHF. 4. NSTEMI. 5. CONFUSION. 6. CONSTIPATION. - Plan Plan: 1. CONSERVATIVE NON-ENDOSCOPIC MANAGEMENT OF ANEMIA. TOO SICK FOR ENDOSCOPIC WORKUP AT THIS POINT. CONSIDER EGD AND/OR COLONOSCOPY FOR THERAPEUTIC PURPOSES ONLY. 2. MONITOR HGB; TRANSFUSE PRN. 3. PUREED DIET VIELKA. 4. PER CARDS/PULM/ID. 5. LAXATIVES. NO FURTHER GI WORKUP NEEDED AT THIS POINT. WILL SIGN OFF AND SEE PATIENT NEEDED. PLEASE CALL US IF QUESTIONS.
--- NOTE | 2016-10-31 23:14 | Infectious Disease Prog Note ---
Infectious Disease Subjective - Review of Systems Service Date: 10/31/16 Subjective: No Change. Infectious Disease Objective - Results Result Diagrams: 10/30/16 04:36 10/31/16 06:30 Recent Labs: Laboratory Last Values WBC 9.6 Th/cmm (4.8-10.8) 10/30/16 04:36 Corrected WBC (auto) 11.2 Th/cmm 10/23/16 06:52 RBC 4.22 Mil/cmm (3.80-5.80) 10/30/16 04:36 Hgb 9.4 gm/dL (12.6-17.4) L 10/30/16 04:36 Plasma Hgb 7.8 mg/dL (0.0-4.9) H 10/23/16 06:52 Hct 30.4 % (39.0-49.0) L 10/30/16 04:36 MCV 72.1 fl (80-99) L 10/30/16 04:36 MCH 22.2 pg (27.0-31.0) L 10/30/16 04:36 MCHC Differential 30.8 pg (28.0-36.0) 10/30/16 04:36 RDW 22.3 % (11.5-20.0) H 10/30/16 04:36 Plt Count 252 Th/cmm (150-400) 10/30/16 04:36 MPV 9.0 fl 10/30/16 04:36 Band Neutrophils % 1 % (0-10) 10/29/16 04:48 Neutrophils (Manual) 60 % (40-80) 10/30/16 04:36 Lymphocytes 15 % (20-50) L 10/30/16 04:36 Monocytes 22 % (2-10) H 10/30/16 04:36 Eosinophils 3 % (0-5) 10/30/16 04:36 Basophils 1 % (0-3) 10/29/16 04:48 Metamyelocytes 1 % (0-0) H 10/22/16 10:55 Myelocytes 3 % 10/23/16 06:52 Nucleated RBCs 4.0 % (0-0) H 10/23/16 06:52 Platelet Estimate ADEQUATE (NORMAL) 10/30/16 04:36 Platelet Morphology NORMAL (NORMAL) 10/30/16 04:36 Polychromasia 1+ 10/29/16 04:48 Anisocytosis 1+ 10/30/16 04:36 Microcytosis 3+ 10/30/16 04:36 RBC Morph Micro Appear ABNORMAL (NORMAL) 10/30/16 04:36 Total Retics Counted 5.8 % (0.5-1.5) H 10/22/16 10:55 Absolute Retic 198.9 Th/cmm 10/22/16 10:55 Corrected Retic Count 3.0 % (0.5-1.5) H 10/22/16 10:55 PT 17.2 SECONDS (9.5-11.5) H 10/31/16 06:30 INR 1.68 (0.5-1.4) H 10/31/16 06:30 Specimen Source Arterial 10/24/16 08:30 Sample Site RB 10/24/16 08:30 pH 7.42 (7.35-7.45) 10/24/16 08:30 pCO2 46.0 mmHg (35.0-45.0) H 10/24/16 08:30 pO2 65.0 mmHg (80.0-100.0) L 10/24/16 08:30 HCO3 29.8 mmol/L (20.0-26.0) H 10/24/16 08:30 Base Excess 4.6 mmol/L (-3.0-3.0) H 10/24/16 08:30 O2 Saturation 93.0 % (92.0-100.0) 10/24/16 08:30 Danish Test NA 10/24/16 08:30 Vent Rate NA 10/24/16 08:30 Inspired O2 37 10/24/16 08:30 Tidal Volume NA 10/24/16 08:30 PEEP NA 10/24/16 08:30 Pressure (ins/psv/peep) NA 10/24/16 08:30 Critical Value SH 10/24/16 08:30 Sodium 139 mEq/L (136-145) 10/31/16 06:30 Potassium 4.3 mEq/L (3.5-5.1) 10/31/16 06:30 Chloride 98 mEq/L (98-107) 10/31/16 06:30 Carbon Dioxide 36.5 mEq/L (21.0-31.0) H 10/31/16 06:30 Anion Gap 8.8 (7.0-16.0) 10/31/16 06:30 BUN 33 mg/dL (7-25) H 10/31/16 06:30 Creatinine 1.2 mg/dL (0.7-1.3) 10/31/16 06:30 Est GFR ( Amer) TNP 10/31/16 06:30 Est GFR (Non-Af Amer) TNP 10/31/16 06:30 BUN/Creatinine Ratio 27.5 10/31/16 06:30 Glucose 101 mg/dL (70-105) 10/31/16 06:30 Whole Bld Lactic Acid 1.51 mmol/L (0.60-2.00) 10/22/16 10:55 Calcium 9.6 mg/dL (8.6-10.3) 10/31/16 06:30 Magnesium 2.2 mg/dL (1.9-2.7) 10/23/16 06:52 Iron 12 ug/dL (38-169) L 10/22/16 10:55 TIBC 541 ug/dL (250-450) H 10/22/16 10:55 Iron Saturation 2 % (15-55) L 10/22/16 10:55 Unsaturated IBC 529 ug/dL (111-343) H 10/22/16 10:55 Total Bilirubin 0.8 mg/dL (0.3-1.0) 10/27/16 07:30 Direct Bilirubin 0.10 mg/dL (0.0-0.2) 10/23/16 06:52 AST 46 U/L (13-39) H 10/27/16 07:30 ALT 53 U/L (7-52) H 10/27/16 07:30 Alkaline Phosphatase 32 U/L (34-104) L 10/27/16 07:30 Ammonia 35 umol/L (16-53) 10/25/16 07:20 Troponin I 0.63 ng/mL (0.01-0.05) H* 10/23/16 11:00 B-Natriuretic Peptide 979.0 pg/mL (5.0-100.0) H 10/29/16 04:48 Total Protein 6.9 gm/dL (6.0-8.3) 10/27/16 07:30 Albumin 3.4 gm/dL (4.2-5.5) L 10/27/16 07:30 Globulin 3.5 gm/dL 10/27/16 07:30 Albumin/Globulin Ratio 1.0 (1.0-1.8) 10/27/16 07:30 Vitamin B12 922 pg/mL (211-946) 10/27/16 07:30 Folic Acid >20.0 ng/mL (>3.0) 10/22/16 10:55 Free T4 1.42 ng/dL (0.82-1.77) 10/23/16 06:52 Free T3 2.3 pg/mL (2.0-4.4) 10/23/16 06:52 TSH 3.23 uIU/ml (0.34-5.60) 10/27/16 07:30 Urine Source RANDOM 10/24/16 03:28 Urine Color YELLOW 10/24/16 03:28 Urine Clarity HAZY (CLEAR) 10/24/16 03:28 Urine pH 5.5 10/24/16 03:28 Ur Specific [place] 1.025 (1.005-1.030) 10/24/16 03:28 Urine Protein 100 mg/dL (NEGATIVE) H 10/24/16 03:28 Urine Glucose (UA) NEGATIVE mg/dL (NEGATIVE) 10/24/16 03:28 Urine Ketones NEGATIVE mg/dL (NEGATIVE) 10/24/16 03:28 Urine Blood MODERATE (NEGATIVE) H 10/24/16 03:28 Urine Nitrate NEGATIVE (NEGATIVE) 10/24/16 03:28 Urine Bilirubin NEGATIVE (NEGATIVE) 10/24/16 03:28 Urine Urobilinogen 0.2 E.U./dL (0.2 - 1.0) 10/24/16 03:28 Ur Leukocyte Esterase TRACE (NEGATIVE) H 10/24/16 03:28 Urine RBC 25-50 /hpf (0-5) H 10/24/16 03:28 Urine WBC 10-25 /hpf (0-5) H 10/24/16 03:28 Ur Epithelial Cells FEW /lpf (FEW) 10/24/16 03:28 Urine Bacteria MODERATE /hpf (NONE SEEN) 10/24/16 03:28 Stool Occult Blood POSITIVE (NEGATIVE) 10/31/16 02:00 RPR NONREACTIVE (NONREACTIVE) 10/27/16 07:30 Influenza A (Rapid) NEG FOR INF A 10/24/16 06:30 Influenza B (Rapid) NEG FOR INF B 10/24/16 06:30 Blood Type A POSITIVE 10/22/16 16:55 Antibody Screen NEGATIVE 10/22/16 16:55 Crossmatch See Detail 10/22/16 16:55 - Physical Exam Vitals and I&O: Vital Signs Temp 97.6 F 10/31/16 20:00 Pulse 113 10/31/16 20:00 Resp 25 10/31/16 20:00 BP 130/66 10/31/16 20:00 Pulse Ox 98 10/31/16 20:00 Intake & Output 10/31/16 10/31/16 11/01/16 06:59 18:59 06:59 Intake Total 550 1700 Output Total 1000 1400 Balance -450 300 Weight (lbs) 80.966 kg Intake: Intake, IV Amount 100 200 Meropenem 500 mg In 100 200 Sodium Chloride 0.9% 100 ml @ 100 mls/hr IV Q8H [facility] Rx#:[id number] Oral 450 1500 Output: Urine 1000 1400 Other: # Bowel Movements 2 2 Stool Characteristics Soft Brown Active Medications: Current Medications Acetaminophen (Tylenol 650mg/20.3ml Suspension) 650 mg PO Q4H PRN PRN Reason: Abdominal Pain Stop: 12/26/16 14:24 Last Admin: 10/31/16 21:10 Dose: 650 mg Albuterol/Ipratropium (Duoneb Neb) 3 ml HHN Q2H PRN PRN Reason: Respiratory Distress Stop: 12/21/16 23:29 Last Admin: 10/23/16 03:05 Dose: 3 ml Albuterol/Ipratropium (Duoneb Neb) 3 ml HHN Q4HRT [facility] Stop: 12/22/16 02:59 Last Admin: 10/31/16 19:40 Dose: 3 ml Amiodarone HCl (Cordarone) 200 mg PO DAILY [facility] Stop: 12/25/16 20:59 Last Admin: 10/31/16 09:29 Dose: 200 mg Budesonide (Pulmicort) 0.5 mg HHN BIDRT [facility] Stop: 12/22/16 06:59 Last Admin: 10/31/16 19:40 Dose: 0.5 mg Digoxin (Lanoxin) 0.25 mg IVP DAILY [facility] Stop: 12/25/16 08:59 Last Admin: 10/31/16 09:28 Dose: 0.25 mg Diltiazem HCl (Cardizem) 20 mg IVP Q4HR PRN PRN Reason: HR >120 Stop: 12/22/16 10:49 Last Admin: 10/29/16 06:10 Dose: 20 mg Diltiazem HCl (Cardizem) 60 mg PO Q6HR [facility] Stop: 12/27/16 11:59 Last Admin: 10/31/16 18:31 Dose: 60 mg Furosemide (Lasix) 40 mg IVP BID [facility] Stop: 12/22/16 16:59 Last Admin: 10/31/16 18:31 Dose: 40 mg Meropenem 500 mg/ Sodium (Chloride) 100 mls @ 100 mls/hr IV Q8H [facility] Stop: 12/25/16 14:59 Last Admin: 10/31/16 23:11 Dose: 100 mls/hr Lactobacillus Rhamnosus (Culturelle) 1 each PO DAILY [facility] Stop: 12/27/16 08:59 Last Admin: 10/31/16 09:28 Dose: 1 each Lorazepam (Ativan) 1 mg IVP Q4HR PRN; Protocol PRN Reason: Agitation Stop: 12/30/16 12:11 Last Admin: 10/31/16 23:11 Dose: 1 mg Miscellaneous (Probiotic Screen) 1 ea MC PRN PRN PRN Reason: PROTOCOL Stop: 12/26/16 16:17 Polyethylene Glycol (Miralax) 17 gm PO DAILY [facility] Stop: 12/29/16 08:59 Last Admin: 10/31/16 09:35 Dose: 17 gm Tamsulosin HCl (Flomax) 0.4 mg PO HS [facility] Stop: 12/21/16 20:59 Last Admin: 10/31/16 21:10 Dose: 0.4 mg General: no acute distress, well developed, well nourished HEENT: atraumatic, normocephalic, PERRLA, EOMI, moist mucous membrane Neck: supple, no thyromegaly, no lymphadenopathy Cardiovascular: S1S2, regular Lungs: clear to auscultation bilaterally, clear to percussion Abdomen: soft, no tender, no distended Extremities: no cyanosis, no clubbing, no edema Neurological: awake, alert, oriented, CN 2-12 intact Skin: intact - Procedures Procedures: Procedures Procedure Code Date REPAIR FACE SKIN, EXTERNAL APPROACH [id number] 10/14/15 RPR S/N/AX/GEN/TRNK 2.5CM/< 88020 10/14/15 Infectious Disease Assmt/Plan - Problem List Patient Problems: All Active Problems BILATERAL LEG PAIN AND UNABLE TO AMBULAT (Acute) Lumbar spine strain (Acute) - Assessment Assessment: 1. UTI- ESBL E coli. 2. SVT , afib. 3. Dementia. 4. HTN. - Plan Plan: Continue Meropenem D5/7..
[2016-11-01] MEDS: Albuterol/Ipratropium Neb 3 ML AERS HHN SCH ×6 (03:28→23:32)
--- NOTE | 2016-11-01 03:44 | Progress Notes ---
Case discussed with staff. The patient was agitated, irritable today. He is alert, would not carry on a conversation. He is unpredictable, impulsive, needing redirection. I asked the staff to continue Ativan as needed. Thank you very much for allowing me to participate in the care of this most interesting gentleman. JOB# [id number]
--- NOTE | 2016-11-01 04:49 | Progress Notes ---
PROBLEM LIST: 1. Acute respiratory failure, improved. 2. Cardiac arrhythmias, stable ____. 3. Left-sided infiltrate, effusion, improving. SYMPTOMS: Nil, feeling okay, still periodically restless, agitated. No specific new other symptoms otherwise. PHYSICAL EXAMINATION: VITAL SIGNS: The patient's recorded vitals: Temperature is 97.6, blood pressure is 140/65, respiration 15, saturation 100%. ENT: Shows no new changes. CHEST: Shows clear with diminished air entry. HEART: Irregular. ABDOMEN: Soft, nontender. LABORATORY DATA: The patient's INR is 1.68. Electrolytes are okay. ASSESSMENT: The patient clinically slowly improving. PLANS AND SUGGESTIONS: We will go ahead and continue current treatment, discussed with Dr. Suki Slade 20 yesterday. We will be in ICU until IV Cardizem drip is changed to oral and see how he does and go from there. JOB# [id number]
[2016-11-01 05:30] LABS: HEMATOCRIT 28.4 % (39.0-49.0); MEAN CELL VOLUME 71.5 fl (80-99); MEAN CORPUSCULAR HEMOGLOBIN 22.6 pg (27.0-31.0); MEAN CORPUSCULAR HGB CONC 31.6 pg (28.0-36.0); MEAN PLATELET VOLUME 8.9 fl; PLATELET COUNT 216 Th/cmm (150-400); RED BLOOD COUNT 3.97 Mil/cmm (3.80-5.80); RED CELL DISTRIBUTION WIDTH 22.5 % (11.5-20.0); WHITE BLOOD COUNT 8.2 Th/cmm (4.8-10.8)
[2016-11-01] MEDS: Diltiazem 30 mg Tab PO SCH ×4 (05:51→17:14)
[2016-11-01 05:56] LABS: ANION GAP 5.9 (7.0-16.0); BUN - UREA NITROGEN 32 mg/dL (7-25); BUN/CREATININE RATIO 26.7; CALCIUM SERUM 9.4 mg/dL (8.6-10.3); CARBON DIOXIDE 35.7 mEq/L (21.0-31.0); CHLORIDE 99 mEq/L (98-107); CREATININE - SERUM 1.2 mg/dL (0.7-1.3); GLUCOSE 96 mg/dL (70-105); POTASSIUM SERUM 3.6 mEq/L (3.5-5.1); SODIUM SERUM 137 mEq/L (136-145)
[2016-11-01 06:13] LABS: INR 1.57 (0.5-1.4)
[2016-11-01] MEDS: Meropenem 500 MG in Sodium Chloride 0.9% 100 ML IV SCH ×3 (06:40→22:21)
[2016-11-01] MEDS: Budesonide 0.5 Mg/2 mL Ud HHN SCH ×2 (07:53→19:23)
[2016-11-01] MEDS: Lactobacillus Rhamnosus 10 Billion CFU Capsule PO SCH (09:33)
[2016-11-01] MEDS: POLYETHYLENE GLYCOL 3350 17 GM PACK PO SCH (09:34)
[2016-11-01 10:09] LABS: ANISOCYTOSIS 1+; MICROCYTOSIS 3+; NEUTROPHILS 54 % (40-80); PLATELET ESTIMATE ADEQUATE (NORMAL); PLATELET MORPHOLOGY GIANT PLATELETS SEEN (NORMAL); POLYCHROMASIA 1+; TOTAL CELLS COUNTED 100
--- NOTE | 2016-11-01 21:12 | Infectious Disease Prog Note ---
Infectious Disease Subjective - Review of Systems Service Date: 11/01/16 Subjective: No Change. Infectious Disease Objective - Results Result Diagrams: 11/01/16 05:00 11/01/16 05:00 Recent Labs: Laboratory Last Values WBC 8.2 Th/cmm (4.8-10.8) 11/01/16 05:00 Corrected WBC (auto) 11.2 Th/cmm 10/23/16 06:52 RBC 3.97 Mil/cmm (3.80-5.80) 11/01/16 05:00 Hgb 9.0 gm/dL (12.6-17.4) L 11/01/16 05:00 Plasma Hgb 7.8 mg/dL (0.0-4.9) H 10/23/16 06:52 Hct 28.4 % (39.0-49.0) L 11/01/16 05:00 MCV 71.5 fl (80-99) L 11/01/16 05:00 MCH 22.6 pg (27.0-31.0) L 11/01/16 05:00 MCHC Differential 31.6 pg (28.0-36.0) 11/01/16 05:00 RDW 22.5 % (11.5-20.0) H 11/01/16 05:00 Plt Count 216 Th/cmm (150-400) 11/01/16 05:00 MPV 8.9 fl 11/01/16 05:00 Band Neutrophils % 1 % (0-10) 10/29/16 04:48 Neutrophils (Manual) 54 % (40-80) 11/01/16 05:00 Lymphocytes 23 % (20-50) 11/01/16 05:00 Monocytes 20 % (2-10) H 11/01/16 05:00 Eosinophils 3 % (0-5) 10/30/16 04:36 Basophils 1 % (0-3) 10/29/16 04:48 Metamyelocytes 1 % (0-0) H 10/22/16 10:55 Myelocytes 3 % 10/23/16 06:52 Nucleated RBCs 4.0 % (0-0) H 10/23/16 06:52 Platelet Estimate ADEQUATE (NORMAL) 11/01/16 05:00 Platelet Morphology GIANT PLATELETS SEEN (NORMAL) 11/01/16 05:00 Polychromasia 1+ 11/01/16 05:00 Anisocytosis 1+ 11/01/16 05:00 Microcytosis 3+ 11/01/16 05:00 RBC Morph Micro Appear ABNORMAL (NORMAL) 11/01/16 05:00 Total Retics Counted 5.8 % (0.5-1.5) H 10/22/16 10:55 Absolute Retic 198.9 Th/cmm 10/22/16 10:55 Corrected Retic Count 3.0 % (0.5-1.5) H 10/22/16 10:55 PT 16.0 SECONDS (9.5-11.5) H 11/01/16 05:00 INR 1.57 (0.5-1.4) H 11/01/16 05:00 Specimen Source Arterial 10/24/16 08:30 Sample Site RB 10/24/16 08:30 pH 7.42 (7.35-7.45) 10/24/16 08:30 pCO2 46.0 mmHg (35.0-45.0) H 10/24/16 08:30 pO2 65.0 mmHg (80.0-100.0) L 10/24/16 08:30 HCO3 29.8 mmol/L (20.0-26.0) H 10/24/16 08:30 Base Excess 4.6 mmol/L (-3.0-3.0) H 10/24/16 08:30 O2 Saturation 93.0 % (92.0-100.0) 10/24/16 08:30 Danish Test NA 10/24/16 08:30 Vent Rate NA 10/24/16 08:30 Inspired O2 37 10/24/16 08:30 Tidal Volume NA 10/24/16 08:30 PEEP NA 10/24/16 08:30 Pressure (ins/psv/peep) NA 10/24/16 08:30 Critical Value SH 10/24/16 08:30 Sodium 137 mEq/L (136-145) 11/01/16 05:00 Potassium 3.6 mEq/L (3.5-5.1) 11/01/16 05:00 Chloride 99 mEq/L (98-107) 11/01/16 05:00 Carbon Dioxide 35.7 mEq/L (21.0-31.0) H 11/01/16 05:00 Anion Gap 5.9 (7.0-16.0) L 11/01/16 05:00 BUN 32 mg/dL (7-25) H 11/01/16 05:00 Creatinine 1.2 mg/dL (0.7-1.3) 11/01/16 05:00 Est GFR ( Amer) TNP 11/01/16 05:00 Est GFR (Non-Af Amer) TNP 11/01/16 05:00 BUN/Creatinine Ratio 26.7 11/01/16 05:00 Glucose 96 mg/dL (70-105) 11/01/16 05:00 Whole Bld Lactic Acid 1.51 mmol/L (0.60-2.00) 10/22/16 10:55 Calcium 9.4 mg/dL (8.6-10.3) 11/01/16 05:00 Magnesium 2.2 mg/dL (1.9-2.7) 10/23/16 06:52 Iron 12 ug/dL (38-169) L 10/22/16 10:55 TIBC 541 ug/dL (250-450) H 10/22/16 10:55 Iron Saturation 2 % (15-55) L 10/22/16 10:55 Unsaturated IBC 529 ug/dL (111-343) H 10/22/16 10:55 Total Bilirubin 0.8 mg/dL (0.3-1.0) 10/27/16 07:30 Direct Bilirubin 0.10 mg/dL (0.0-0.2) 10/23/16 06:52 AST 46 U/L (13-39) H 10/27/16 07:30 ALT 53 U/L (7-52) H 10/27/16 07:30 Alkaline Phosphatase 32 U/L (34-104) L 10/27/16 07:30 Ammonia 35 umol/L (16-53) 10/25/16 07:20 Troponin I 0.63 ng/mL (0.01-0.05) H* 10/23/16 11:00 B-Natriuretic Peptide 979.0 pg/mL (5.0-100.0) H 10/29/16 04:48 Total Protein 6.9 gm/dL (6.0-8.3) 10/27/16 07:30 Albumin 3.4 gm/dL (4.2-5.5) L 10/27/16 07:30 Globulin 3.5 gm/dL 10/27/16 07:30 Albumin/Globulin Ratio 1.0 (1.0-1.8) 10/27/16 07:30 Vitamin B12 922 pg/mL (211-946) 10/27/16 07:30 Folic Acid >20.0 ng/mL (>3.0) 10/22/16 10:55 Free T4 1.42 ng/dL (0.82-1.77) 10/23/16 06:52 Free T3 2.3 pg/mL (2.0-4.4) 10/23/16 06:52 TSH 3.23 uIU/ml (0.34-5.60) 10/27/16 07:30 Urine Source RANDOM 10/24/16 03:28 Urine Color YELLOW 10/24/16 03:28 Urine Clarity HAZY (CLEAR) 10/24/16 03:28 Urine pH 5.5 10/24/16 03:28 Ur Specific [place] 1.025 (1.005-1.030) 10/24/16 03:28 Urine Protein 100 mg/dL (NEGATIVE) H 10/24/16 03:28 Urine Glucose (UA) NEGATIVE mg/dL (NEGATIVE) 10/24/16 03:28 Urine Ketones NEGATIVE mg/dL (NEGATIVE) 10/24/16 03:28 Urine Blood MODERATE (NEGATIVE) H 10/24/16 03:28 Urine Nitrate NEGATIVE (NEGATIVE) 10/24/16 03:28 Urine Bilirubin NEGATIVE (NEGATIVE) 10/24/16 03:28 Urine Urobilinogen 0.2 E.U./dL (0.2 - 1.0) 10/24/16 03:28 Ur Leukocyte Esterase TRACE (NEGATIVE) H 10/24/16 03:28 Urine RBC 25-50 /hpf (0-5) H 10/24/16 03:28 Urine WBC 10-25 /hpf (0-5) H 10/24/16 03:28 Ur Epithelial Cells FEW /lpf (FEW) 10/24/16 03:28 Urine Bacteria MODERATE /hpf (NONE SEEN) 10/24/16 03:28 Stool Occult Blood POSITIVE (NEGATIVE) 10/31/16 02:00 RPR NONREACTIVE (NONREACTIVE) 10/27/16 07:30 Influenza A (Rapid) NEG FOR INF A 10/24/16 06:30 Influenza B (Rapid) NEG FOR INF B 10/24/16 06:30 Blood Type A POSITIVE 10/22/16 16:55 Antibody Screen NEGATIVE 10/22/16 16:55 Crossmatch See Detail 10/22/16 16:55 - Physical Exam Vitals and I&O: Vital Signs Temp 97.6 F 11/01/16 18:00 Pulse 76 11/01/16 19:26 Resp 20 11/01/16 19:26 BP 105/78 11/01/16 19:02 Pulse Ox 100 11/01/16 19:26 Intake & Output 11/01/16 11/01/16 11/02/16 06:59 18:59 06:59 Intake Total 700 1150 Output Total 1200 1250 Balance -500 -100 Weight (lbs) 80.649 kg Intake: Intake, IV Amount 100 100 Meropenem 500 mg In 100 100 Sodium Chloride 0.9% 100 ml @ 100 mls/hr IV Q8H [facility] Rx#:[id number] Oral 600 1050 Output: Urine 1200 1250 Other: # Bowel Movements 2 1 Stool Characteristics Soft Brown Active Medications: Current Medications Acetaminophen (Tylenol 650mg/20.3ml Suspension) 650 mg PO Q4H PRN PRN Reason: Abdominal Pain Stop: 12/26/16 14:24 Last Admin: 10/31/16 21:10 Dose: 650 mg Albuterol/Ipratropium (Duoneb Neb) 3 ml HHN Q2H PRN PRN Reason: Respiratory Distress Stop: 12/21/16 23:29 Last Admin: 10/23/16 03:05 Dose: 3 ml Albuterol/Ipratropium (Duoneb Neb) 3 ml HHN Q4HRT [facility] Stop: 12/22/16 02:59 Last Admin: 11/01/16 19:23 Dose: 3 ml Amiodarone HCl (Cordarone) 200 mg PO DAILY [facility] Stop: 12/25/16 20:59 Last Admin: 11/01/16 09:34 Dose: 200 mg Budesonide (Pulmicort) 0.5 mg HHN BIDRT [facility] Stop: 12/22/16 06:59 Last Admin: 11/01/16 19:23 Dose: 0.5 mg Digoxin (Lanoxin) 0.25 mg IVP DAILY [facility] Stop: 12/25/16 08:59 Last Admin: 11/01/16 09:35 Dose: 0.25 mg Diltiazem HCl (Cardizem) 20 mg IVP Q4HR PRN PRN Reason: HR >120 Stop: 12/22/16 10:49 Last Admin: 10/29/16 06:10 Dose: 20 mg Diltiazem HCl (Cardizem) 60 mg PO Q6HR [facility] Stop: 12/27/16 11:59 Last Admin: 11/01/16 17:14 Dose: 60 mg Furosemide (Lasix) 40 mg IVP BID [facility] Stop: 12/22/16 16:59 Last Admin: 11/01/16 19:02 Dose: Not Given Meropenem 500 mg/ Sodium (Chloride) 100 mls @ 100 mls/hr IV Q8H [facility] Stop: 12/25/16 14:59 Last Admin: 11/01/16 15:20 Dose: 100 mls/hr Lactobacillus Rhamnosus (Culturelle) 1 each PO DAILY [facility] Stop: 12/27/16 08:59 Last Admin: 11/01/16 09:33 Dose: 1 each Lorazepam (Ativan) 1 mg IVP Q4HR PRN; Protocol PRN Reason: Agitation Stop: 12/30/16 12:11 Last Admin: 11/01/16 13:52 Dose: 1 mg Miscellaneous (Probiotic Screen) 1 ea MC PRN PRN PRN Reason: PROTOCOL Stop: 12/26/16 16:17 Polyethylene Glycol (Miralax) 17 gm PO DAILY [facility] Stop: 12/29/16 08:59 Last Admin: 11/01/16 09:34 Dose: 17 gm Tamsulosin HCl (Flomax) 0.4 mg PO HS [facility] Stop: 12/21/16 20:59 Last Admin: 11/01/16 20:20 Dose: 0.4 mg - Procedures Procedures: Procedures Procedure Code Date REPAIR FACE SKIN, EXTERNAL APPROACH [id number] 10/14/15 RPR S/N/AX/GEN/TRNK 2.5CM/< 32420 10/14/15 Infectious Disease Assmt/Plan - Problem List Patient Problems: All Active Problems BILATERAL LEG PAIN AND UNABLE TO AMBULAT (Acute) Lumbar spine strain (Acute) - Assessment Assessment: 1. UTI- ESBL E coli. 2. SVT , afib. 3. Dementia. 4. HTN. - Plan Plan: Continue Meropenem D6/7..
[2016-11-02] MEDS: Diltiazem 30 mg Tab PO SCH ×5 (00:24→23:28)
--- NOTE | 2016-11-02 04:10 | Progress Notes ---
Case discussed with staff of the patient, reviewed records. The patient continues to be confused, easily agitated, irritable, I renewed____ his Ativan yesterday. Continues to be unable to carry on a conversation or make safe plan for his self-care, gravely disabled. Recommended to continue the Ativan, I do not have more medication for him because of his condition, he may get Ativan alone , which help. Thank you very much for allowing me to participate in the care of this most interesting gentleman. JOB# [id number]
[2016-11-02] MEDS: Meropenem 500 MG in Sodium Chloride 0.9% 100 ML IV SCH ×3 (06:04→22:32)
[2016-11-02 06:24] LABS: HEMATOCRIT 30.5 % (39.0-49.0); HEMOGLOBIN 9.4 gm/dL (12.6-17.4); MEAN CELL VOLUME 72.7 fl (80-99); MEAN CORPUSCULAR HEMOGLOBIN 22.5 pg (27.0-31.0); MEAN CORPUSCULAR HGB CONC 30.9 pg (28.0-36.0); MEAN PLATELET VOLUME 8.6 fl; PLATELET COUNT 228 Th/cmm (150-400); RED CELL DISTRIBUTION WIDTH 22.8 % (11.5-20.0)
[2016-11-02 06:34] LABS: INR 1.8 (0.5-1.4); PROTHROMBIN TIME (TEST) 18.5 SECONDS (9.5-11.5)
[2016-11-02] MEDS: Albuterol/Ipratropium Neb 3 ML AERS HHN SCH ×5 (07:38→23:35)
[2016-11-02] MEDS: Lactobacillus Rhamnosus 10 Billion CFU Capsule PO SCH (09:13)
[2016-11-02] MEDS: POLYETHYLENE GLYCOL 3350 17 GM PACK PO SCH (09:14)
[2016-11-02 09:50] LABS: BAND NEUTROPHILE 3 % (0-10); METAMYELOCYTE 1 % (0-0); NEUTROPHILS 60 % (40-80); TOTAL CELLS COUNTED 100
[2016-11-02 09:51] LABS: ANISOCYTOSIS 1+; MICROCYTOSIS 3+; PLATELET ESTIMATE ADEQUATE (NORMAL); PLATELET MORPHOLOGY NORMAL (NORMAL)
[2016-11-02] MEDS: Budesonide 0.5 Mg/2 mL Ud HHN SCH (22:42)
[2016-11-03] MEDS: Albuterol/Ipratropium Neb 3 ML AERS HHN SCH ×6 (03:43→23:15)
--- NOTE | 2016-11-03 05:59 | Progress Notes ---
Case was discussed with staff of the patient. The patient is improving. He was moved to the Medical Floor. He has been easier to redirect. He is on Ativan as needed. No side effects, no sedation, no nausea. Still unable to carry on a conversation, unpredictable anyway. Thank you very much for allowing me to participate in the care of this most interesting gentleman. JOB# [id number]
[2016-11-03] MEDS: Diltiazem 30 mg Tab PO SCH ×3 (06:15→17:15)
[2016-11-03] MEDS: Budesonide 0.5 Mg/2 mL Ud HHN SCH ×2 (08:17→20:16)
[2016-11-03 08:20] LABS: HEMOGLOBIN 8.2 gm/dL (12.6-17.4); MEAN CELL VOLUME 72.3 fl (80-99); MEAN CORPUSCULAR HEMOGLOBIN 22.7 pg (27.0-31.0); MEAN CORPUSCULAR HGB CONC 31.4 pg (28.0-36.0); MEAN PLATELET VOLUME 8.9 fl; PLATELET COUNT 240 Th/cmm (150-400); RED BLOOD COUNT 3.62 Mil/cmm (3.80-5.80); RED CELL DISTRIBUTION WIDTH 23.9 % (11.5-20.0)
[2016-11-03] MEDS: Lactobacillus Rhamnosus 10 Billion CFU Capsule PO SCH (08:23)
[2016-11-03] MEDS: POLYETHYLENE GLYCOL 3350 17 GM PACK PO SCH ×2 (08:23→08:47)
[2016-11-03 08:31] LABS: HEMATOCRIT 26.2 % (39.0-49.0); WHITE BLOOD COUNT 16.8 Th/cmm (4.8-10.8)
[2016-11-03 08:34] LABS: INR 2.3 (0.5-1.4)
[2016-11-03 09:01] LABS: BAND NEUTROPHILE 3 % (0-10); NEUTROPHILS 67 % (40-80); PLATELET ESTIMATE ADEQUATE (NORMAL); TOTAL CELLS COUNTED 100
--- NOTE | 2016-11-03 10:33 | Diagnostic Imaging Report ---
CHEST X-RAY: AP view INDICATION: Shortness of breath COMPARISON: Chest x-ray 10/29/[address] of the chest on to 417 FINDINGS: There is faint right midlung density, laterally. Chronic changes are seen with no focal consolidation identified. Heart size normal. Atherosclerosis is noted. No effusions. IMPRESSION: Faint right midlung density, laterally. Faint atelectasis versus infiltrate in this region cannot be excluded.
--- NOTE | 2016-11-03 16:04 | Diagnostic Imaging Report ---
KUB History: Constipation. Comparison: None Findings: There is extensive amount of stool throughout the colon with areas of fecal impaction involving the ascending and descending colon. Degenerative changes of the spine are noted. IMPRESSION: Extensive amount of stool throughout the colon with air is a fecal impaction within the ascending and descending colon.
--- NOTE | 2016-11-03 17:03 | Infectious Disease Prog Note ---
Infectious Disease Subjective - Review of Systems Service Date: 11/03/16 Subjective: patient had pulled out baldwin and developed hematuria. There is no fever. Infectious Disease Objective - Results Result Diagrams: 11/03/16 07:37 11/01/16 05:00 Recent Labs: Laboratory Last Values WBC 16.8 Th/cmm (4.8-10.8) H D 11/03/16 07:37 Corrected WBC (auto) 11.2 Th/cmm 10/23/16 06:52 RBC 3.62 Mil/cmm (3.80-5.80) L 11/03/16 07:37 Hgb 8.2 gm/dL (12.6-17.4) L 11/03/16 07:37 Plasma Hgb 7.8 mg/dL (0.0-4.9) H 10/23/16 06:52 Hct 26.2 % (39.0-49.0) L D 11/03/16 07:37 MCV 72.3 fl (80-99) L 11/03/16 07:37 MCH 22.7 pg (27.0-31.0) L 11/03/16 07:37 MCHC Differential 31.4 pg (28.0-36.0) 11/03/16 07:37 RDW 23.9 % (11.5-20.0) H 11/03/16 07:37 Plt Count 240 Th/cmm (150-400) 11/03/16 07:37 MPV 8.9 fl 11/03/16 07:37 Band Neutrophils % 3 % (0-10) 11/03/16 07:37 Neutrophils (Manual) 67 % (40-80) 11/03/16 07:37 Lymphocytes 10 % (20-50) L 11/03/16 07:37 Monocytes 10 % (2-10) 11/03/16 07:37 Eosinophils 3 % (0-5) 10/30/16 04:36 Basophils 1 % (0-3) 10/29/16 04:48 Metamyelocytes 1 % (0-0) H 11/02/16 05:59 Myelocytes 3 % 10/23/16 06:52 Nucleated RBCs 4.0 % (0-0) H 10/23/16 06:52 Platelet Estimate ADEQUATE (NORMAL) 11/03/16 07:37 Platelet Morphology NORMAL (NORMAL) 11/02/16 05:59 Polychromasia 1+ 11/01/16 05:00 Anisocytosis 1+ 11/02/16 05:59 Microcytosis 3+ 11/02/16 05:59 RBC Morph Micro Appear ABNORMAL (NORMAL) 11/02/16 05:59 Total Retics Counted 5.8 % (0.5-1.5) H 10/22/16 10:55 Absolute Retic 198.9 Th/cmm 10/22/16 10:55 Corrected Retic Count 3.0 % (0.5-1.5) H 10/22/16 10:55 PT 24.0 SECONDS (9.5-11.5) H 11/03/16 07:37 INR 2.30 (0.5-1.4) H 11/03/16 07:37 Specimen Source Arterial 10/24/16 08:30 Sample Site RB 10/24/16 08:30 pH 7.42 (7.35-7.45) 10/24/16 08:30 pCO2 46.0 mmHg (35.0-45.0) H 10/24/16 08:30 pO2 65.0 mmHg (80.0-100.0) L 10/24/16 08:30 HCO3 29.8 mmol/L (20.0-26.0) H 10/24/16 08:30 Base Excess 4.6 mmol/L (-3.0-3.0) H 10/24/16 08:30 O2 Saturation 93.0 % (92.0-100.0) 10/24/16 08:30 Danish Test NA 10/24/16 08:30 Vent Rate NA 10/24/16 08:30 Inspired O2 37 10/24/16 08:30 Tidal Volume NA 10/24/16 08:30 PEEP NA 10/24/16 08:30 Pressure (ins/psv/peep) NA 10/24/16 08:30 Critical Value SH 10/24/16 08:30 Sodium 137 mEq/L (136-145) 11/01/16 05:00 Potassium 3.6 mEq/L (3.5-5.1) 11/01/16 05:00 Chloride 99 mEq/L (98-107) 11/01/16 05:00 Carbon Dioxide 35.7 mEq/L (21.0-31.0) H 11/01/16 05:00 Anion Gap 5.9 (7.0-16.0) L 11/01/16 05:00 BUN 32 mg/dL (7-25) H 11/01/16 05:00 Creatinine 1.2 mg/dL (0.7-1.3) 11/01/16 05:00 Est GFR ( Amer) TNP 11/01/16 05:00 Est GFR (Non-Af Amer) TNP 11/01/16 05:00 BUN/Creatinine Ratio 26.7 11/01/16 05:00 Glucose 96 mg/dL (70-105) 11/01/16 05:00 Whole Bld Lactic Acid 1.51 mmol/L (0.60-2.00) 10/22/16 10:55 Calcium 9.4 mg/dL (8.6-10.3) 11/01/16 05:00 Magnesium 2.2 mg/dL (1.9-2.7) 10/23/16 06:52 Iron 12 ug/dL (38-169) L 10/22/16 10:55 TIBC 541 ug/dL (250-450) H 10/22/16 10:55 Iron Saturation 2 % (15-55) L 10/22/16 10:55 Unsaturated IBC 529 ug/dL (111-343) H 10/22/16 10:55 Total Bilirubin 0.8 mg/dL (0.3-1.0) 10/27/16 07:30 Direct Bilirubin 0.10 mg/dL (0.0-0.2) 10/23/16 06:52 AST 46 U/L (13-39) H 10/27/16 07:30 ALT 53 U/L (7-52) H 10/27/16 07:30 Alkaline Phosphatase 32 U/L (34-104) L 10/27/16 07:30 Ammonia 35 umol/L (16-53) 10/25/16 07:20 Troponin I 0.63 ng/mL (0.01-0.05) H* 10/23/16 11:00 B-Natriuretic Peptide 979.0 pg/mL (5.0-100.0) H 10/29/16 04:48 Total Protein 6.9 gm/dL (6.0-8.3) 10/27/16 07:30 Albumin 3.4 gm/dL (4.2-5.5) L 10/27/16 07:30 Globulin 3.5 gm/dL 10/27/16 07:30 Albumin/Globulin Ratio 1.0 (1.0-1.8) 10/27/16 07:30 Vitamin B12 922 pg/mL (211-946) 10/27/16 07:30 Folic Acid >20.0 ng/mL (>3.0) 10/22/16 10:55 Free T4 1.42 ng/dL (0.82-1.77) 10/23/16 06:52 Free T3 2.3 pg/mL (2.0-4.4) 10/23/16 06:52 TSH 3.23 uIU/ml (0.34-5.60) 10/27/16 07:30 Urine Source RANDOM 10/24/16 03:28 Urine Color YELLOW 10/24/16 03:28 Urine Clarity HAZY (CLEAR) 10/24/16 03:28 Urine pH 5.5 10/24/16 03:28 Ur Specific [place] 1.025 (1.005-1.030) 10/24/16 03:28 Urine Protein 100 mg/dL (NEGATIVE) H 10/24/16 03:28 Urine Glucose (UA) NEGATIVE mg/dL (NEGATIVE) 10/24/16 03:28 Urine Ketones NEGATIVE mg/dL (NEGATIVE) 10/24/16 03:28 Urine Blood MODERATE (NEGATIVE) H 10/24/16 03:28 Urine Nitrate NEGATIVE (NEGATIVE) 10/24/16 03:28 Urine Bilirubin NEGATIVE (NEGATIVE) 10/24/16 03:28 Urine Urobilinogen 0.2 E.U./dL (0.2 - 1.0) 10/24/16 03:28 Ur Leukocyte Esterase TRACE (NEGATIVE) H 10/24/16 03:28 Urine RBC 25-50 /hpf (0-5) H 10/24/16 03:28 Urine WBC 10-25 /hpf (0-5) H 10/24/16 03:28 Ur Epithelial Cells FEW /lpf (FEW) 10/24/16 03:28 Urine Bacteria MODERATE /hpf (NONE SEEN) 10/24/16 03:28 Stool Occult Blood NEGATIVE (NEGATIVE) 11/02/16 03:05 RPR NONREACTIVE (NONREACTIVE) 10/27/16 07:30 Influenza A (Rapid) NEG FOR INF A 10/24/16 06:30 Influenza B (Rapid) NEG FOR INF B 10/24/16 06:30 Blood Type A POSITIVE 10/22/16 16:55 Antibody Screen NEGATIVE 10/22/16 16:55 Crossmatch See Detail 10/22/16 16:55 - Physical Exam Vitals and I&O: Vital Signs Temp 98.0 F 11/03/16 12:00 Pulse 80 11/03/16 15:59 Resp 20 11/03/16 15:59 BP 134/73 11/03/16 12:00 Pulse Ox 98 11/03/16 15:59 Intake & Output 11/02/16 11/03/16 11/03/16 18:59 06:59 18:59 Intake Total 1400 3300 Output Total 700 3500 Balance 700 -200 Intake: Intake, IV Amount 200 100 Meropenem 500 mg In 200 100 Sodium Chloride 0.9% 100 ml @ 100 mls/hr IV Q8H [facility] Rx#:[id number] Oral 1200 200 Other 3000 Output: Urine 700 3500 Other: # Bowel Movements 1 Stool Characteristics Soft Soft Brown Brown Active Medications: Current Medications Acetaminophen (Tylenol 650mg/20.3ml Suspension) 650 mg PO Q4H PRN PRN Reason: Abdominal Pain Stop: 12/26/16 14:24 Last Admin: 11/02/16 17:41 Dose: 650 mg Albuterol/Ipratropium (Duoneb Neb) 3 ml HHN Q2H PRN PRN Reason: Respiratory Distress Stop: 12/21/16 23:29 Last Admin: 10/23/16 03:05 Dose: 3 ml Albuterol/Ipratropium (Duoneb Neb) 3 ml HHN Q4HRT [facility] Stop: 12/22/16 02:59 Last Admin: 11/03/16 15:56 Dose: 3 ml Amiodarone HCl (Cordarone) 200 mg PO DAILY [facility] Stop: 12/25/16 20:59 Last Admin: 11/03/16 08:23 Dose: 200 mg Budesonide (Pulmicort) 0.5 mg HHN BIDRT [facility] Stop: 12/22/16 06:59 Last Admin: 11/03/16 08:17 Dose: 0.5 mg Digoxin (Lanoxin) 0.25 mg IVP DAILY [facility] Stop: 12/25/16 08:59 Last Admin: 11/03/16 08:23 Dose: 0.25 mg Diltiazem HCl (Cardizem) 20 mg IVP Q4HR PRN PRN Reason: HR >120 Stop: 12/22/16 10:49 Last Admin: 10/29/16 06:10 Dose: 20 mg Diltiazem HCl (Cardizem) 60 mg PO Q6HR [facility] Stop: 12/27/16 11:59 Last Admin: 11/03/16 13:49 Dose: 60 mg Furosemide (Lasix) 40 mg IVP BID [facility] Stop: 12/22/16 16:59 Last Admin: 11/03/16 08:22 Dose: 40 mg Lactobacillus Rhamnosus (Culturelle) 1 each PO DAILY [facility] Stop: 12/27/16 08:59 Last Admin: 11/03/16 08:23 Dose: 1 each Lorazepam (Ativan) 1 mg IVP Q4HR PRN; Protocol PRN Reason: Agitation Stop: 12/30/16 12:11 Last Admin: 11/03/16 06:35 Dose: 1 mg Miscellaneous (Probiotic Screen) 1 ea MC PRN PRN PRN Reason: PROTOCOL Stop: 12/26/16 16:17 Polyethylene Glycol (Miralax) 17 gm PO DAILY [facility] Stop: 12/29/16 08:59 Last Admin: 11/03/16 08:47 Dose: Not Given Quetiapine Fumarate (Seroquel) 12.5 mg PO Q8HR PRN; Protocol PRN Reason: Agitation Stop: 01/02/17 12:59 Tamsulosin HCl (Flomax) 0.4 mg PO HS [facility] Stop: 12/21/16 20:59 Last Admin: 11/02/16 20:21 Dose: 0.4 mg General: no acute distress, well developed, well nourished HEENT: atraumatic, normocephalic, PERRLA, EOMI Neck: supple Cardiovascular: S1S2, regular Lungs: clear to auscultation bilaterally, clear to percussion Abdomen: soft, no tender, no distended Extremities: no cyanosis, no clubbing, no edema Neurological: awake, other (confused) Skin: intact - Procedures Procedures: Procedures Procedure Code Date REPAIR FACE SKIN, EXTERNAL APPROACH [id number] 10/14/15 RPR S/N/AX/GEN/TRNK 2.5CM/< 45387 10/14/15 Infectious Disease Assmt/Plan - Problem List Patient Problems: All Active Problems BILATERAL LEG PAIN AND UNABLE TO AMBULAT (Acute) Lumbar spine strain (Acute) - Assessment Assessment: 1. UTI- ESBL E coli. treated. 2. SVT , afib. 3. Dementia. 4. HTN. 5. - Plan Plan: off antibiotics. check UA and U c/s
--- NOTE | 2016-11-03 17:48 | Progress Notes ---
PROBLEM LIST: 1. Respiratory failure, improved. 2. Congestive heart failure, improved. 3. Question left lower lobe infiltrate. 4. Cardiac arrhythmia. 5. Psychosis. SYMPTOMS: The patient is still periodically disoriented and confused, but no respiratory distress at this particular time. PHYSICAL EXAMINATION: VITAL SIGNS: Recorded: Temperature is 98.7, blood pressure 117/79, saturation 98 on 2%. ENT: Shows no new changes. CHEST: Shows diminished air entry with occasional rhonchi. HEART: Irregular. ABDOMEN: Soft, nontender. EXTREMITIES: Shows no peripheral edema. ASSESSMENT: The patient clinically significantly improving respiratory shankar. PLANS AND SUGGESTIONS: We will check other laboratory studies and disposition, we will discuss with Dr. Suki Slade and go from there. JOB# [id number]
--- NOTE | 2016-11-03 18:13 | Progress Notes ---
PULMONARY PROGRESS NOTE: PROBLEM LIST: 1. Acute respiratory failure, improved. 2. Cardiac arrhythmia, stable. 3. Congestive heart failure, improved. 4. Possibly pneumonia. 5. Associated psychosis. SYMPTOMS: Nil. Has moved down to the Step Down Unit. Still gets periodic fidgety, agitated, restless, not as often. PHYSICAL EXAMINATION: VITAL SIGNS: Recorded vitals: Temperature is 97, heart rate is in 70s, blood pressure 135/65, saturation is 98% on 2 L of oxygen. ABDOMEN: Soft, nontender. EXTREMITIES: Show no peripheral edema. ASSESSMENT: The patient clinically appears to be improving overall, still psychiatric illness causing a lot of issues. Infiltrate, effusion appears to be significantly improved. PLANS AND SUGGESTIONS: We will continue current treatment. We will repeat chest x-ray in the next day or two and go from there. JOB# [id number]
[2016-11-04] MEDS: Diltiazem 30 mg Tab PO SCH ×4 (00:54→22:03)
--- NOTE | 2016-11-04 02:23 | Consultation ---
HISTORY OF PRESENT ILLNESS: This is an 86-year-old male who is living at [facility], transferred for respiratory distress. On [id number], the patient is poorly oriented, confused, still on mittens, restless at times. PAST PSYCHIATRIC HISTORY: Likely dementia. PAST MEDICAL HISTORY: Noted. SOCIAL HISTORY: Noted. MENTAL STATUS EXAMINATION: Appearance stated age, some eye contact, restless, confused, in mittens, and disoriented. No suicidal gestures. No homicidal gestures. Poor concentration. Poor insight. Poor judgment. Poor impulse control. PROVISIONAL DIAGNOSIS: Likely delirium, rule out dementia and psychosis, unspecified. RECOMMENDATIONS AND PLAN: Continue to monitor. Continue mittens as needed. Continue p.r.n. medications which do seem to be helping. We will initiate Seroquel p.r.n. as well. [facility]# [id number]
[2016-11-04] MEDS: Albuterol/Ipratropium Neb 3 ML AERS HHN SCH ×6 (03:48→23:13)
[2016-11-04 06:34] LABS: INR 2.08 (0.5-1.4); PROTHROMBIN TIME (TEST) 21.6 SECONDS (9.5-11.5)
--- NOTE | 2016-11-04 06:41 | Progress Notes ---
PULMONARY PROGRESS NOTE: PROBLEM LIST: 1. Acute respiratory failure. 2. Pneumonia. 3. Congestive heart failure. 4. Psychosis. 5. Cardiac arrhythmia with congestive heart failure. SYMPTOMS: Nil. Still periodic restless. No respiratory distress, etc. No coughing or wheezing. PHYSICAL EXAMINATION: VITAL SIGNS: The patient's temperature is 98, blood pressure 115/53, saturation 96%. NECK: Neck veins not visualized. CHEST: Shows much clear. HEART: Regular. LABORATORY DATA: The patient's chest x-ray is almost totally clear. White count is 16.8, hemoglobin 8.2 and INR is 2.3. ASSESSMENT: The patient clinically appears to be much better, respiratory-shankar improved, elevated white count to be kept eye on. Otherwise respiratory-shankar, he is stable to be discharged and followup as an outpatient. JOB# [id number]
[2016-11-04 06:53] LABS: ANION GAP 5.3 (7.0-16.0); BUN - UREA NITROGEN 37 mg/dL (7-25); BUN/CREATININE RATIO 28.5; CALCIUM SERUM 8.8 mg/dL (8.6-10.3); CARBON DIOXIDE 33.2 mEq/L (21.0-31.0); CHLORIDE 105 mEq/L (98-107); CREATININE - SERUM 1.3 mg/dL (0.7-1.3); GLUCOSE 90 mg/dL (70-105); POTASSIUM SERUM 3.5 mEq/L (3.5-5.1); SODIUM SERUM 140 mEq/L (136-145)
[2016-11-04] MEDS: Budesonide 0.5 Mg/2 mL Ud HHN SCH ×2 (07:33→19:36)
[2016-11-04] MEDS: POLYETHYLENE GLYCOL 3350 17 GM PACK PO SCH (09:43)
[2016-11-04] MEDS: Lactobacillus Rhamnosus 10 Billion CFU Capsule PO SCH (09:44)
--- NOTE | 2016-11-04 14:10 | Infectious Disease Prog Note ---
Infectious Disease Subjective - Review of Systems Service Date: 11/04/16 Subjective: There is no fever, no chills. Continues to have hematuria. Infectious Disease Objective - Results Result Diagrams: 11/03/16 07:37 11/04/16 05:45 Recent Labs: Laboratory Last Values WBC 16.8 Th/cmm (4.8-10.8) H D 11/03/16 07:37 Corrected WBC (auto) 11.2 Th/cmm 10/23/16 06:52 RBC 3.62 Mil/cmm (3.80-5.80) L 11/03/16 07:37 Hgb 8.2 gm/dL (12.6-17.4) L 11/03/16 07:37 Plasma Hgb 7.8 mg/dL (0.0-4.9) H 10/23/16 06:52 Hct 26.2 % (39.0-49.0) L D 11/03/16 07:37 MCV 72.3 fl (80-99) L 11/03/16 07:37 MCH 22.7 pg (27.0-31.0) L 11/03/16 07:37 MCHC Differential 31.4 pg (28.0-36.0) 11/03/16 07:37 RDW 23.9 % (11.5-20.0) H 11/03/16 07:37 Plt Count 240 Th/cmm (150-400) 11/03/16 07:37 MPV 8.9 fl 11/03/16 07:37 Band Neutrophils % 3 % (0-10) 11/03/16 07:37 Neutrophils (Manual) 67 % (40-80) 11/03/16 07:37 Lymphocytes 10 % (20-50) L 11/03/16 07:37 Monocytes 10 % (2-10) 11/03/16 07:37 Eosinophils 3 % (0-5) 10/30/16 04:36 Basophils 1 % (0-3) 10/29/16 04:48 Metamyelocytes 1 % (0-0) H 11/02/16 05:59 Myelocytes 3 % 10/23/16 06:52 Nucleated RBCs 4.0 % (0-0) H 10/23/16 06:52 Platelet Estimate ADEQUATE (NORMAL) 11/03/16 07:37 Platelet Morphology NORMAL (NORMAL) 11/02/16 05:59 Polychromasia 1+ 11/01/16 05:00 Anisocytosis 1+ 11/02/16 05:59 Microcytosis 3+ 11/02/16 05:59 RBC Morph Micro Appear ABNORMAL (NORMAL) 11/02/16 05:59 Total Retics Counted 5.8 % (0.5-1.5) H 10/22/16 10:55 Absolute Retic 198.9 Th/cmm 10/22/16 10:55 Corrected Retic Count 3.0 % (0.5-1.5) H 10/22/16 10:55 PT 21.6 SECONDS (9.5-11.5) H 11/04/16 05:45 INR 2.08 (0.5-1.4) H 11/04/16 05:45 Specimen Source Arterial 10/24/16 08:30 Sample Site RB 10/24/16 08:30 pH 7.42 (7.35-7.45) 10/24/16 08:30 pCO2 46.0 mmHg (35.0-45.0) H 10/24/16 08:30 pO2 65.0 mmHg (80.0-100.0) L 10/24/16 08:30 HCO3 29.8 mmol/L (20.0-26.0) H 10/24/16 08:30 Base Excess 4.6 mmol/L (-3.0-3.0) H 10/24/16 08:30 O2 Saturation 93.0 % (92.0-100.0) 10/24/16 08:30 Danish Test NA 10/24/16 08:30 Vent Rate NA 10/24/16 08:30 Inspired O2 37 10/24/16 08:30 Tidal Volume NA 10/24/16 08:30 PEEP NA 10/24/16 08:30 Pressure (ins/psv/peep) NA 10/24/16 08:30 Critical Value SH 10/24/16 08:30 Sodium 140 mEq/L (136-145) 11/04/16 05:45 Potassium 3.5 mEq/L (3.5-5.1) 11/04/16 05:45 Chloride 105 mEq/L (98-107) 11/04/16 05:45 Carbon Dioxide 33.2 mEq/L (21.0-31.0) H 11/04/16 05:45 Anion Gap 5.3 (7.0-16.0) L 11/04/16 05:45 BUN 37 mg/dL (7-25) H 11/04/16 05:45 Creatinine 1.3 mg/dL (0.7-1.3) 11/04/16 05:45 Est GFR ( Amer) TNP 11/04/16 05:45 Est GFR (Non-Af Amer) TNP 11/04/16 05:45 BUN/Creatinine Ratio 28.5 11/04/16 05:45 Glucose 90 mg/dL (70-105) 11/04/16 05:45 Whole Bld Lactic Acid 1.51 mmol/L (0.60-2.00) 10/22/16 10:55 Calcium 8.8 mg/dL (8.6-10.3) 11/04/16 05:45 Magnesium 2.2 mg/dL (1.9-2.7) 10/23/16 06:52 Iron 12 ug/dL (38-169) L 10/22/16 10:55 TIBC 541 ug/dL (250-450) H 10/22/16 10:55 Iron Saturation 2 % (15-55) L 10/22/16 10:55 Unsaturated IBC 529 ug/dL (111-343) H 10/22/16 10:55 Total Bilirubin 0.8 mg/dL (0.3-1.0) 10/27/16 07:30 Direct Bilirubin 0.10 mg/dL (0.0-0.2) 10/23/16 06:52 AST 46 U/L (13-39) H 10/27/16 07:30 ALT 53 U/L (7-52) H 10/27/16 07:30 Alkaline Phosphatase 32 U/L (34-104) L 10/27/16 07:30 Ammonia 35 umol/L (16-53) 10/25/16 07:20 Troponin I 0.63 ng/mL (0.01-0.05) H* 10/23/16 11:00 B-Natriuretic Peptide 549.0 pg/mL (5.0-100.0) H 11/04/16 05:45 Total Protein 6.9 gm/dL (6.0-8.3) 10/27/16 07:30 Albumin 3.4 gm/dL (4.2-5.5) L 10/27/16 07:30 Globulin 3.5 gm/dL 10/27/16 07:30 Albumin/Globulin Ratio 1.0 (1.0-1.8) 10/27/16 07:30 Vitamin B12 922 pg/mL (211-946) 10/27/16 07:30 Folic Acid >20.0 ng/mL (>3.0) 10/22/16 10:55 Free T4 1.42 ng/dL (0.82-1.77) 10/23/16 06:52 Free T3 2.3 pg/mL (2.0-4.4) 10/23/16 06:52 TSH 3.23 uIU/ml (0.34-5.60) 10/27/16 07:30 Urine Source RANDOM 10/24/16 03:28 Urine Color YELLOW 10/24/16 03:28 Urine Clarity HAZY (CLEAR) 10/24/16 03:28 Urine pH 5.5 10/24/16 03:28 Ur Specific [place] 1.025 (1.005-1.030) 10/24/16 03:28 Urine Protein 100 mg/dL (NEGATIVE) H 10/24/16 03:28 Urine Glucose (UA) NEGATIVE mg/dL (NEGATIVE) 10/24/16 03:28 Urine Ketones NEGATIVE mg/dL (NEGATIVE) 10/24/16 03:28 Urine Blood MODERATE (NEGATIVE) H 10/24/16 03:28 Urine Nitrate NEGATIVE (NEGATIVE) 10/24/16 03:28 Urine Bilirubin NEGATIVE (NEGATIVE) 10/24/16 03:28 Urine Urobilinogen 0.2 E.U./dL (0.2 - 1.0) 10/24/16 03:28 Ur Leukocyte Esterase TRACE (NEGATIVE) H 10/24/16 03:28 Urine RBC 25-50 /hpf (0-5) H 10/24/16 03:28 Urine WBC 10-25 /hpf (0-5) H 10/24/16 03:28 Ur Epithelial Cells FEW /lpf (FEW) 10/24/16 03:28 Urine Bacteria MODERATE /hpf (NONE SEEN) 10/24/16 03:28 Stool Occult Blood NEGATIVE (NEGATIVE) 11/02/16 03:05 RPR NONREACTIVE (NONREACTIVE) 10/27/16 07:30 Influenza A (Rapid) NEG FOR INF A 10/24/16 06:30 Influenza B (Rapid) NEG FOR INF B 10/24/16 06:30 Blood Type A POSITIVE 10/22/16 16:55 Antibody Screen NEGATIVE 10/22/16 16:55 Crossmatch See Detail 10/22/16 16:55 - Physical Exam Vitals and I&O: Vital Signs Temp 99.2 F 11/04/16 04:00 Pulse 61 11/04/16 13:02 Resp 20 11/04/16 11:10 BP 95/70 11/04/16 10:45 Pulse Ox 97 11/04/16 11:10 Intake & Output 11/03/16 11/04/16 11/04/16 18:59 06:59 18:59 Intake Total 450 Output Total 1999 Balance -1550 Intake: Oral 450 Output: Urine 2000 Other: # Voids 900 # Bowel Movements 1 Active Medications: Current Medications Acetaminophen (Tylenol 650mg/20.3ml Suspension) 650 mg PO Q4H PRN PRN Reason: Abdominal Pain Stop: 12/26/16 14:24 Last Admin: 11/02/16 17:41 Dose: 650 mg Albuterol/Ipratropium (Duoneb Neb) 3 ml HHN Q2H PRN PRN Reason: Respiratory Distress Stop: 12/21/16 23:29 Last Admin: 10/23/16 03:05 Dose: 3 ml Albuterol/Ipratropium (Duoneb Neb) 3 ml HHN Q4HRT [facility] Stop: 12/22/16 02:59 Last Admin: 11/04/16 11:10 Dose: 3 ml Amiodarone HCl (Cordarone) 200 mg PO DAILY [facility] Stop: 12/25/16 20:59 Last Admin: 11/04/16 09:43 Dose: 200 mg Budesonide (Pulmicort) 0.5 mg HHN BIDRT [facility] Stop: 12/22/16 06:59 Last Admin: 11/04/16 07:33 Dose: 0.5 mg Digoxin (Lanoxin) 0.125 mg PO DAILY [facility] Stop: 01/04/17 08:59 Diltiazem HCl (Cardizem) 20 mg IVP Q4HR PRN PRN Reason: HR >120 Stop: 12/22/16 10:49 Last Admin: 10/29/16 06:10 Dose: 20 mg Diltiazem HCl (Cardizem) 60 mg PO Q6HR [facility] Stop: 12/27/16 11:59 Last Admin: 11/04/16 13:02 Dose: Not Given Furosemide (Lasix) 40 mg IVP BID [facility] Stop: 12/22/16 16:59 Last Admin: 11/04/16 09:44 Dose: Not Given Lactobacillus Rhamnosus (Culturelle) 1 each PO DAILY [facility] Stop: 12/27/16 08:59 Last Admin: 11/04/16 09:44 Dose: 1 each Lorazepam (Ativan) 1 mg IVP Q4HR PRN; Protocol PRN Reason: Agitation Stop: 12/30/16 12:11 Last Admin: 11/04/16 03:25 Dose: 1 mg Miscellaneous (Probiotic Screen) 1 ea MC PRN PRN PRN Reason: PROTOCOL Stop: 12/26/16 16:17 Polyethylene Glycol (Miralax) 17 gm PO DAILY [facility] Stop: 12/29/16 08:59 Last Admin: 11/04/16 09:43 Dose: 17 gm Quetiapine Fumarate (Seroquel) 12.5 mg PO Q8HR PRN; Protocol PRN Reason: Agitation Stop: 01/02/17 12:59 Tamsulosin HCl (Flomax) 0.4 mg PO HS [facility] Stop: 12/21/16 20:59 Last Admin: 11/03/16 20:29 Dose: 0.4 mg General: no acute distress, well developed, well nourished HEENT: atraumatic, normocephalic, PERRLA, EOMI Neck: supple, no thyromegaly Cardiovascular: S1S2, regular Lungs: clear to auscultation bilaterally, clear to percussion Abdomen: soft, bowel sounds, catheter, no tender, no distended Extremities: no cyanosis, no clubbing, no edema Neurological: awake, other (confused.) Skin: intact - Procedures Procedures: Procedures Procedure Code Date REPAIR FACE SKIN, EXTERNAL APPROACH [id number] 10/14/15 RPR S/N/AX/GEN/TRNK 2.5CM/< 29635 10/14/15 Infectious Disease Assmt/Plan - Problem List Patient Problems: All Active Problems BILATERAL LEG PAIN AND UNABLE TO AMBULAT (Acute) Lumbar spine strain (Acute) - Assessment Assessment: 1. UTI- ESBL E coli. treated. 2. SVT , afib. 3. Dementia. 4. HTN. 5. Leukocytosis. Likely reactive. - Plan Plan: off antibiotics. Check CBC.
[2016-11-04 14:32] LABS: MEAN CELL VOLUME 72.5 fl (80-99); MEAN CORPUSCULAR HEMOGLOBIN 22.7 pg (27.0-31.0); MEAN CORPUSCULAR HGB CONC 31.3 pg (28.0-36.0); MEAN PLATELET VOLUME 8.9 fl; PLATELET COUNT 229 Th/cmm (150-400); RED BLOOD COUNT 3.09 Mil/cmm (3.80-5.80); RED CELL DISTRIBUTION WIDTH 23.8 % (11.5-20.0); WHITE BLOOD COUNT 16.3 Th/cmm (4.8-10.8)
[2016-11-04 14:51] LABS: HEMATOCRIT 22.4 % (39.0-49.0)
[2016-11-04 15:36] LABS: URINE BILIRUBIN NEGATIVE (NEGATIVE); URINE BLOOD LARGE (NEGATIVE); URINE COLOR RED; URINE GLUCOSE (UA) NEGATIVE (NEGATIVE); URINE KETONE NEGATIVE (NEGATIVE); URINE PROTEIN >300 mg/dL (NEGATIVE); URINE UROBILINOGEN 0.2 E.U./dL (0.2 - 1.0)
[2016-11-04 15:38] LABS: URINE BACTERIA OCCASIONAL /hpf (NONE SEEN); URINE EPITHELIAL CELLS OCCASIONAL /lpf (FEW); URINE RBC >100 /hpf (0-5)
[2016-11-04 15:42] LABS: BASOPHIL 1 % (0-3); EOSINOPHIL 1 % (0-5); NEUTROPHILS 64 % (40-80); TOTAL CELLS COUNTED 100
[2016-11-04 15:56] LABS: ANISOCYTOSIS 2+
[2016-11-04 15:57] LABS: HYPOCHROMIA 1+; MICROCYTOSIS 3+; PLATELET ESTIMATE ADEQUATE (NORMAL); PLATELET MORPHOLOGY GIANT PLATELETS SEEN (NORMAL)
[2016-11-04 18:43] LABS: RBC RETICULOCYTE COUNT 3.09 Mil/cmm
[2016-11-04 18:44] LABS: HEMATOCRIT 22.4 % (40.0-54.0)
[2016-11-04] MEDS ORDERED: D5-0.45NS 1,000 ML IV SCH (18:49)
[2016-11-04 23:18] LABS: HEMATOCRIT 24.1 % (39.0-49.0); MEAN CELL VOLUME 74.2 fl (80-99); MEAN CORPUSCULAR HEMOGLOBIN 23.7 pg (27.0-31.0); MEAN CORPUSCULAR HGB CONC 31.9 pg (28.0-36.0); PLATELET COUNT 212 Th/cmm (150-400); RED BLOOD COUNT 3.25 Mil/cmm (3.80-5.80); RED CELL DISTRIBUTION WIDTH 23.8 % (11.5-20.0); WHITE BLOOD COUNT 14.7 Th/cmm (4.8-10.8)
[2016-11-04 23:46] LABS: HEMOGLOBIN 7.7 gm/dL (12.6-17.4)
[2016-11-04 23:52] LABS: TOTAL CELLS COUNTED 100
[2016-11-04 23:53] LABS: ANISOCYTOSIS 2+; BAND NEUTROPHILE 4 % (0-10); BASOPHIL 0 % (0-3); EOSINOPHIL 2 % (0-5); NEUTROPHILS 69 % (40-80); PLATELET ESTIMATE ADEQUATE (NORMAL); PLATELET MORPHOLOGY NORMAL (NORMAL)
[2016-11-04 23:54] LABS: MICROCYTOSIS 2+
[2016-11-05] MEDS: Albuterol/Ipratropium Neb 3 ML AERS HHN SCH ×6 (02:51→22:50)
--- NOTE | 2016-11-05 03:57 | Progress Notes ---
PULMONARY PROGRESS NOTE: PROBLEM LIST: 1. Acute respiratory failure, resolved. 2. Cardiac arrhythmia, stable. 3. Right-sided effusion and infiltrate, almost resolved. SYMPTOMS: Nil. Still periodic encephalopathy. No respiratory distress, etc. PHYSICAL EXAMINATION: VITAL SIGNS: Temperature is 97, pulse rate is 60-61, blood pressure is 95/70, saturation is okay. NECK: Neck veins not visualized. CHEST: Shows diminished air entry with occasional rhonchi. HEART: Irregular. ABDOMEN: Soft, nontender. LABORATORY DATA: INR is 2.08 and BUN is 37. ASSESSMENT: The patient clinically respiratory-shankar is doing much better. PLANS AND SUGGESTIONS: We will go ahead and continue current treatment. We will follow through other laboratory studies in the next few days and main issue encephalopathy periodic and respiratory-shankar, no new chest treatment, etc., and go from there. JOB# [id number]
[2016-11-05] MEDS: Diltiazem 30 mg Tab PO SCH ×3 (06:00→19:18)
[2016-11-05 06:17] LABS: ANION GAP 3.9 (7.0-16.0); BUN - UREA NITROGEN 35 mg/dL (7-25); BUN/CREATININE RATIO 26.9; CALCIUM SERUM 8.5 mg/dL (8.6-10.3); CARBON DIOXIDE 31.8 mEq/L (21.0-31.0); CHLORIDE 106 mEq/L (98-107); CREATININE - SERUM 1.3 mg/dL (0.7-1.3); GLUCOSE 92 mg/dL (70-105); POTASSIUM SERUM 3.7 mEq/L (3.5-5.1); SODIUM SERUM 138 mEq/L (136-145)
[2016-11-05] MEDS: Budesonide 0.5 Mg/2 mL Ud HHN SCH ×2 (07:59→19:38)
[2016-11-05 08:10] LABS: IRON SATURATION 10 % (15-55); TIBC (LCI) 348 ug/dL (250-450); UIBC 313 ug/dL (111-343)
[2016-11-05] MEDS: Lactobacillus Rhamnosus 10 Billion CFU Capsule PO SCH (09:00)
[2016-11-05] MEDS: POLYETHYLENE GLYCOL 3350 17 GM PACK PO SCH (09:00)
[2016-11-05] MEDS ORDERED: Lactated Ringer 1,000 ML IV SCH (09:45)
[2016-11-05] MEDS ORDERED: Magnesium Citrate 1.75 GM/300 mL Bottle PO ONE (10:05)
[2016-11-05 11:14] LABS: HEMOGLOBIN 8.7 gm/dL (12.6-17.4); MEAN CELL VOLUME 77.7 fl (80-99); MEAN CORPUSCULAR HEMOGLOBIN 25.2 pg (27.0-31.0); MEAN CORPUSCULAR HGB CONC 32.5 pg (28.0-36.0); MEAN PLATELET VOLUME 9.5 fl; PLATELET COUNT 234 Th/cmm (150-400); RED BLOOD COUNT 3.45 Mil/cmm (3.80-5.80); RED CELL DISTRIBUTION WIDTH 24.1 % (11.5-20.0)
[2016-11-05 11:17] LABS: HEMATOCRIT 26.8 % (39.0-49.0); WHITE BLOOD COUNT 9.8 Th/cmm (4.8-10.8)
[2016-11-05 12:54] LABS: BAND NEUTROPHILE 1 % (0-10); EOSINOPHIL 3 % (0-5); METAMYELOCYTE 1 % (0-0); MYELOCYTE 1 %; NEUTROPHILS 59 % (40-80); TOTAL CELLS COUNTED 100
[2016-11-05 12:55] LABS: ANISOCYTOSIS 2+; MICROCYTOSIS 1+; PLATELET ESTIMATE ADEQUATE (NORMAL); PLATELET MORPHOLOGY GIANT PLATELETS SEEN (NORMAL)
[2016-11-05] MEDS: Pantoprazole 40 mg EC Tab PO SCH (12:55)
--- NOTE | 2016-11-05 13:00 | Infectious Disease Prog Note ---
Infectious Disease Subjective - Review of Systems Service Date: 11/05/16 Subjective: There is no fever, no chills. Continues to have hematuria. Infectious Disease Objective - Results Result Diagrams: 11/05/16 10:55 11/05/16 04:50 Recent Labs: Laboratory Last Values WBC 9.8 Th/cmm (4.8-10.8) D 11/05/16 10:55 Corrected WBC (auto) 11.2 Th/cmm 10/23/16 06:52 RBC 3.45 Mil/cmm (3.80-5.80) L 11/05/16 10:55 Hgb 8.7 gm/dL (12.6-17.4) L 11/05/16 10:55 Plasma Hgb 7.8 mg/dL (0.0-4.9) H 10/23/16 06:52 Hct 26.8 % (39.0-49.0) L D 11/05/16 10:55 MCV 77.7 fl (80-99) L 11/05/16 10:55 MCH 25.2 pg (27.0-31.0) L 11/05/16 10:55 MCHC Differential 32.5 pg (28.0-36.0) 11/05/16 10:55 RDW 24.1 % (11.5-20.0) H 11/05/16 10:55 Plt Count 234 Th/cmm (150-400) 11/05/16 10:55 MPV 9.5 fl 11/05/16 10:55 Band Neutrophils % 1 % (0-10) 11/05/16 10:55 Neutrophils (Manual) 59 % (40-80) 11/05/16 10:55 Lymphocytes 20 % (20-50) 11/05/16 10:55 Monocytes 14 % (2-10) H 11/05/16 10:55 Eosinophils 3 % (0-5) 11/05/16 10:55 Basophils 0 % (0-3) 11/04/16 23:10 Metamyelocytes 1 % (0-0) H 11/05/16 10:55 Myelocytes 1 % 11/05/16 10:55 Nucleated RBCs 4.0 % (0-0) H 10/23/16 06:52 Atypical Lymphocytes 1 % 11/05/16 10:55 Hypochromia 1+ 11/04/16 14:16 Platelet Estimate ADEQUATE (NORMAL) 11/05/16 10:55 Platelet Morphology GIANT PLATELETS SEEN (NORMAL) 11/05/16 10:55 Polychromasia 1+ 11/01/16 05:00 Anisocytosis 2+ 11/05/16 10:55 Microcytosis 1+ 11/05/16 10:55 RBC Morph Micro Appear ABNORMAL (NORMAL) 11/05/16 10:55 Total Retics Counted 2.0 % (0.5-1.5) H 11/04/16 16:10 Absolute Retic 61.8 Th/cmm 11/04/16 16:10 Corrected Retic Count 1.0 % (0.5-1.5) 11/04/16 16:10 PT 21.6 SECONDS (9.5-11.5) H 11/04/16 05:45 INR 2.08 (0.5-1.4) H 11/04/16 05:45 Specimen Source Arterial 10/24/16 08:30 Sample Site RB 10/24/16 08:30 pH 7.42 (7.35-7.45) 10/24/16 08:30 pCO2 46.0 mmHg (35.0-45.0) H 10/24/16 08:30 pO2 65.0 mmHg (80.0-100.0) L 10/24/16 08:30 HCO3 29.8 mmol/L (20.0-26.0) H 10/24/16 08:30 Base Excess 4.6 mmol/L (-3.0-3.0) H 10/24/16 08:30 O2 Saturation 93.0 % (92.0-100.0) 10/24/16 08:30 Danish Test NA 10/24/16 08:30 Vent Rate NA 10/24/16 08:30 Inspired O2 37 10/24/16 08:30 Tidal Volume NA 10/24/16 08:30 PEEP NA 10/24/16 08:30 Pressure (ins/psv/peep) NA 10/24/16 08:30 Critical Value SH 10/24/16 08:30 Sodium 138 mEq/L (136-145) 11/05/16 04:50 Potassium 3.7 mEq/L (3.5-5.1) 11/05/16 04:50 Chloride 106 mEq/L (98-107) 11/05/16 04:50 Carbon Dioxide 31.8 mEq/L (21.0-31.0) H 11/05/16 04:50 Anion Gap 3.9 (7.0-16.0) L 11/05/16 04:50 BUN 35 mg/dL (7-25) H 11/05/16 04:50 Creatinine 1.3 mg/dL (0.7-1.3) 11/05/16 04:50 Est GFR ( Amer) TNP 11/05/16 04:50 Est GFR (Non-Af Amer) TNP 11/05/16 04:50 BUN/Creatinine Ratio 26.9 11/05/16 04:50 Glucose 92 mg/dL (70-105) 11/05/16 04:50 POC Glucose 106 MG/DL (70 - 105) H 11/05/16 06:46 Whole Bld Lactic Acid 1.51 mmol/L (0.60-2.00) 10/22/16 10:55 Calcium 8.5 mg/dL (8.6-10.3) L 11/05/16 04:50 Magnesium 2.2 mg/dL (1.9-2.7) 10/23/16 06:52 Iron 35 ug/dL (38-169) L 11/04/16 16:10 TIBC 348 ug/dL (250-450) 11/04/16 16:10 Iron Saturation 10 % (15-55) L 11/04/16 16:10 Unsaturated IBC 313 ug/dL (111-343) 11/04/16 16:10 Total Bilirubin 0.8 mg/dL (0.3-1.0) 10/27/16 07:30 Direct Bilirubin 0.10 mg/dL (0.0-0.2) 10/23/16 06:52 AST 46 U/L (13-39) H 10/27/16 07:30 ALT 53 U/L (7-52) H 10/27/16 07:30 Alkaline Phosphatase 32 U/L (34-104) L 10/27/16 07:30 Ammonia 35 umol/L (16-53) 10/25/16 07:20 Troponin I 0.63 ng/mL (0.01-0.05) H* 10/23/16 11:00 B-Natriuretic Peptide 1010.0 pg/mL (5.0-100.0) H 11/05/16 10:55 Total Protein 6.9 gm/dL (6.0-8.3) 10/27/16 07:30 Albumin 3.4 gm/dL (4.2-5.5) L 10/27/16 07:30 Globulin 3.5 gm/dL 10/27/16 07:30 Albumin/Globulin Ratio 1.0 (1.0-1.8) 10/27/16 07:30 Vitamin B12 888 pg/mL (211-946) 11/04/16 16:10 Folic Acid 15.0 ng/mL (>3.0) 11/04/16 16:10 Free T4 1.42 ng/dL (0.82-1.77) 10/23/16 06:52 Free T3 2.3 pg/mL (2.0-4.4) 10/23/16 06:52 TSH 3.23 uIU/ml (0.34-5.60) 10/27/16 07:30 Urine Source [place] 11/04/16 14:30 Urine Color RED 11/04/16 14:30 Urine Clarity BLOODY (CLEAR) 11/04/16 14:30 Urine pH 6.0 11/04/16 14:30 Ur Specific [place] 1.020 (1.005-1.030) 11/04/16 14:30 Urine Protein >300 mg/dL (NEGATIVE) H 11/04/16 14:30 Urine Glucose (UA) NEGATIVE mg/dL (NEGATIVE) 11/04/16 14:30 Urine Ketones NEGATIVE mg/dL (NEGATIVE) 11/04/16 14:30 Urine Blood LARGE (NEGATIVE) H 11/04/16 14:30 Urine Nitrate NEGATIVE (NEGATIVE) 11/04/16 14:30 Urine Bilirubin NEGATIVE (NEGATIVE) 11/04/16 14:30 Urine Urobilinogen 0.2 E.U./dL (0.2 - 1.0) 11/04/16 14:30 Ur Leukocyte Esterase TRACE (NEGATIVE) H 11/04/16 14:30 Urine RBC >100 /hpf (0-5) H 11/04/16 14:30 Urine WBC 2-5 /hpf (0-5) H 02/16/17 14:30 Ur Epithelial Cells OCCASIONAL /lpf (FEW) 11/04/16 14:30 Urine Bacteria OCCASIONAL /hpf (NONE SEEN) 11/04/16 14:30 Stool Occult Blood NEGATIVE (NEGATIVE) 11/02/16 03:05 RPR NONREACTIVE (NONREACTIVE) 10/27/16 07:30 Influenza A (Rapid) NEG FOR INF A 10/24/16 06:30 Influenza B (Rapid) NEG FOR INF B 10/24/16 06:30 Blood Type A POSITIVE 11/04/16 16:10 Antibody Screen NEGATIVE 11/04/16 16:10 Crossmatch See Detail 11/04/16 16:10 - Physical Exam Vitals and I&O: Vital Signs Temp 98 F 11/05/16 04:00 Pulse 96 11/05/16 11:15 Resp 22 11/05/16 11:15 BP 119/68 11/05/16 04:00 Pulse Ox 99 11/05/16 11:15 Intake & Output 11/04/16 11/05/16 11/05/16 18:59 06:59 18:59 Intake Total 1710 Output Total 4300 Balance -2590 Intake: Oral 760 Blood Product 250 Other 700 Output: Urine 4300 Active Medications: Current Medications Acetaminophen (Tylenol 650mg/20.3ml Suspension) 650 mg PO Q4H PRN PRN Reason: Abdominal Pain Stop: 12/26/16 14:24 Last Admin: 11/02/16 17:41 Dose: 650 mg Albuterol/Ipratropium (Duoneb Neb) 3 ml HHN Q2H PRN PRN Reason: Respiratory Distress Stop: 12/21/16 23:29 Last Admin: 10/23/16 03:05 Dose: 3 ml Albuterol/Ipratropium (Duoneb Neb) 3 ml HHN Q4HRT [facility] Stop: 12/22/16 02:59 Last Admin: 11/05/16 11:15 Dose: 3 ml Amiodarone HCl (Cordarone) 200 mg PO DAILY [facility] Stop: 12/25/16 20:59 Last Admin: 11/04/16 09:43 Dose: 200 mg Budesonide (Pulmicort) 0.5 mg HHN BIDRT [facility] Stop: 12/22/16 06:59 Last Admin: 11/05/16 07:59 Dose: 0.5 mg Digoxin (Lanoxin) 0.125 mg PO DAILY [facility] Stop: 01/04/17 08:59 Diltiazem HCl (Cardizem) 20 mg IVP Q4HR PRN PRN Reason: HR >120 Stop: 12/22/16 10:49 Last Admin: 10/29/16 06:10 Dose: 20 mg Diltiazem HCl (Cardizem) 60 mg PO Q6HR [facility] Stop: 12/27/16 11:59 Last Admin: 11/04/16 22:03 Dose: 60 mg Furosemide (Lasix) 40 mg IVP BID [facility] Stop: 12/22/16 16:59 Last Admin: 11/04/16 22:02 Dose: 40 mg Dextrose/Sodium Chloride (D5-0.45ns) 1,000 mls @ 80 mls/hr IV .[id number] [facility] Stop: 01/03/17 18:48 Lactated Ringer's (Lactated Ringer) 1,000 mls @ 0 mls/hr IV .Q0M [facility] PRN Reason: TKO Stop: 11/06/16 09:44 Lactobacillus Rhamnosus (Culturelle) 1 each PO DAILY [facility] Stop: 12/27/16 08:59 Last Admin: 11/04/16 09:44 Dose: 1 each Lorazepam (Ativan) 1 mg IVP Q4HR PRN; Protocol PRN Reason: Agitation Stop: 12/30/16 12:11 Last Admin: 11/05/16 01:48 Dose: 1 mg Miscellaneous (Probiotic Screen) 1 ea MC PRN PRN PRN Reason: PROTOCOL Stop: 12/26/16 16:17 Ondansetron HCl (Zofran) 4 mg IV PRN PRN PRN Reason: Nausea / Vomiting Stop: 11/05/16 21:00 Pantoprazole Sodium (Protonix) 40 mg PO QDAC [facility] Stop: 01/04/17 10:14 Polyethylene Glycol (Miralax) 17 gm PO DAILY [facility] Stop: 12/29/16 08:59 Last Admin: 11/04/16 09:43 Dose: 17 gm Quetiapine Fumarate (Seroquel) 12.5 mg PO Q8HR PRN; Protocol PRN Reason: Agitation Stop: 01/02/17 12:59 Last Admin: 11/04/16 23:17 Dose: 12.5 mg Tamsulosin HCl (Flomax) 0.4 mg PO HS [facility] Stop: 12/21/16 20:59 Last Admin: 11/04/16 22:04 Dose: 0.4 mg General: no acute distress, well developed, well nourished HEENT: atraumatic, normocephalic, PERRLA, EOMI Neck: supple, no thyromegaly Cardiovascular: S1S2, regular Lungs: clear to auscultation bilaterally, clear to percussion Abdomen: soft, catheter, no tender, no distended Extremities: no cyanosis, no clubbing, no edema Neurological: awake, alert, oriented Skin: intact - Procedures Procedures: Procedures Procedure Code Date REPAIR FACE SKIN, EXTERNAL APPROACH [id number] 10/14/15 RPR S/N/AX/GEN/TRNK 2.5CM/< 28205 10/14/15 Infectious Disease Assmt/Plan - Problem List Patient Problems: All Active Problems BILATERAL LEG PAIN AND UNABLE TO AMBULAT (Acute) Lumbar spine strain (Acute) - Assessment Assessment: 1. UTI- ESBL E coli. treated. 2. SVT , afib. 3. Dementia. 4. HTN. 5. Leukocytosis. Reactive to hematuria. Improved. - Plan Plan: off antibiotics.
--- NOTE | 2016-11-05 22:11 | Operative Report ---
PROCEDURE PERFORMED: EGD with biopsy. INDICATION FOR PROCEDURE: Anemia, possible GI bleed. CONSENT: Informed consent was obtained from the guardian after outlining benefits and risks. ANESTHESIA USED: Propofol given by anesthesiologist. PREOPERATIVE DIAGNOSES: 1. Anemia. 2. Possible gastrointestinal bleed. POSTOPERATIVE DIAGNOSES: 1. Duodenitis with erosions. 2. Gastritis. DESCRIPTION OF PROCEDURE: The patient was placed in left lateral position. Upper Olympus endoscope was introduced into the mouth and advanced to the esophagus, which was intubated under direct visualization. Esophageal mucosa was examined on the way down. It was essentially normal. GE junction was identified at 40 cm. Scope was advanced to the stomach, where the gastric mucosa was examined and it showed gastritis. There was erythema involving the body and antrum. Scope was advanced through the pylorus to the duodenum, where the bulb and second parts were examined and multiple erosions were seen there. Scope was withdrawn to the stomach, retroflexed to examine the cardia and fundus. It did not show any other abnormalities. Scope was then straightened. Same examination was repeated again without new findings. So, biopsies were taken from the antrum for DIXIE test. Scope was then withdrawn while examining the gastric and esophageal mucosa a second time. The patient tolerated the procedure well. There were no immediate postoperative complications. RECOMMENDATIONS: 1. Follow up DIXIE test. 2. Treat H. pylori if positive. 3. PPI. 4. Colonoscopy when the patient can take the prep. Thank you, Dr. Ross, for allowing me to participate in the care of this patient. If you have any further questions, please let me know. ROBERTS [place]# [id number]
[2016-11-05] MEDS: D5-0.45NS 1,000 ML IV SCH (23:21)
[2016-11-06] MEDS: Diltiazem 30 mg Tab PO SCH ×6 (00:50→23:37)
[2016-11-06] MEDS: Albuterol/Ipratropium Neb 3 ML AERS HHN SCH ×6 (03:02→23:46)
[2016-11-06 07:34] LABS: ALKALINE PHOSPHATASE 36 U/L (34-104); ANION GAP 7.8 (7.0-16.0); BILIRUBIN,TOTAL 0.8 mg/dL (0.3-1.0); BUN - UREA NITROGEN 29 mg/dL (7-25); BUN/CREATININE RATIO 26.4; CALCIUM SERUM 8.7 mg/dL (8.6-10.3); CARBON DIOXIDE 31.7 mEq/L (21.0-31.0); CHLORIDE 105 mEq/L (98-107); CREATININE - SERUM 1.1 mg/dL (0.7-1.3); GLUCOSE 85 mg/dL (70-105); POTASSIUM SERUM 3.5 mEq/L (3.5-5.1); SGOT 75 U/L (13-39); SGPT/ALT 39 U/L (7-52); SODIUM SERUM 141 mEq/L (136-145)
[2016-11-06] MEDS: Budesonide 0.5 Mg/2 mL Ud HHN SCH ×2 (07:35→19:26)
[2016-11-06] MEDS: Pantoprazole 40 mg EC Tab PO SCH (07:41)
[2016-11-06 07:54] LABS: HEMATOCRIT 25.3 % (39.0-49.0); HEMOGLOBIN 8.3 gm/dL (12.6-17.4); MEAN CELL VOLUME 78.1 fl (80-99); MEAN CORPUSCULAR HEMOGLOBIN 25.6 pg (27.0-31.0); MEAN CORPUSCULAR HGB CONC 32.8 pg (28.0-36.0); PLATELET COUNT 215 Th/cmm (150-400); RED BLOOD COUNT 3.24 Mil/cmm (3.80-5.80); RED CELL DISTRIBUTION WIDTH 24.2 % (11.5-20.0); WHITE BLOOD COUNT 9.6 Th/cmm (4.8-10.8)
[2016-11-06 08:56] LABS: ANISOCYTOSIS 2+; BAND NEUTROPHILE 1 % (0-10); MICROCYTOSIS 1+; NEUTROPHILS 67 % (40-80); PLATELET ESTIMATE ADEQUATE (NORMAL); PLATELET MORPHOLOGY PLATELET CLUMPS SEEN (NORMAL); POLYCHROMASIA 1+; TOTAL CELLS COUNTED 100
[2016-11-06 08:57] LABS: MYELOCYTE 2 %
[2016-11-06] MEDS: POLYETHYLENE GLYCOL 3350 17 GM PACK PO SCH (09:05)
[2016-11-06] MEDS: Lactobacillus Rhamnosus 10 Billion CFU Capsule PO SCH (09:06)
--- NOTE | 2016-11-06 13:04 | General Progress Note ---
Subjective - Review of Systems Service Date: 11/06/16 Subjective: There is no fever, no chills. Continues to have hematuria. Objective - Results Result Diagrams: 11/06/16 05:05 11/06/16 05:05 Recent Labs: Laboratory Last Values WBC 9.6 Th/cmm (4.8-10.8) 11/06/16 05:05 Corrected WBC (auto) 11.2 Th/cmm 10/23/16 06:52 RBC 3.24 Mil/cmm (3.80-5.80) L 11/06/16 05:05 Hgb 8.3 gm/dL (12.6-17.4) L 11/06/16 05:05 Plasma Hgb 7.8 mg/dL (0.0-4.9) H 10/23/16 06:52 Hct 25.3 % (39.0-49.0) L 11/06/16 05:05 MCV 78.1 fl (80-99) L 11/06/16 05:05 MCH 25.6 pg (27.0-31.0) L 11/06/16 05:05 MCHC Differential 32.8 pg (28.0-36.0) 11/06/16 05:05 RDW 24.2 % (11.5-20.0) H 11/06/16 05:05 Plt Count 215 Th/cmm (150-400) 11/06/16 05:05 MPV 9.0 fl 11/06/16 05:05 Band Neutrophils % 1 % (0-10) 11/06/16 05:05 Neutrophils (Manual) 67 % (40-80) 11/06/16 05:05 Lymphocytes 26 % (20-50) 11/06/16 05:05 Monocytes 4 % (2-10) 11/06/16 05:05 Eosinophils 3 % (0-5) 11/05/16 10:55 Basophils 0 % (0-3) 11/04/16 23:10 Metamyelocytes 1 % (0-0) H 11/05/16 10:55 Myelocytes 2 % 11/06/16 05:05 Nucleated RBCs 4.0 % (0-0) H 10/23/16 06:52 Atypical Lymphocytes 1 % 11/05/16 10:55 Hypochromia 1+ 11/04/16 14:16 Platelet Estimate ADEQUATE (NORMAL) 11/06/16 05:05 Platelet Morphology PLATELET CLUMPS SEEN (NORMAL) 11/06/16 05:05 Polychromasia 1+ 11/06/16 05:05 Anisocytosis 2+ 11/06/16 05:05 Microcytosis 1+ 11/06/16 05:05 RBC Morph Micro Appear ABNORMAL (NORMAL) 11/06/16 05:05 Total Retics Counted 2.0 % (0.5-1.5) H 11/04/16 16:10 Absolute Retic 61.8 Th/cmm 11/04/16 16:10 Corrected Retic Count 1.0 % (0.5-1.5) 11/04/16 16:10 PT 21.6 SECONDS (9.5-11.5) H 11/04/16 05:45 INR 2.08 (0.5-1.4) H 11/04/16 05:45 Specimen Source Arterial 10/24/16 08:30 Sample Site RB 10/24/16 08:30 pH 7.42 (7.35-7.45) 10/24/16 08:30 pCO2 46.0 mmHg (35.0-45.0) H 10/24/16 08:30 pO2 65.0 mmHg (80.0-100.0) L 10/24/16 08:30 HCO3 29.8 mmol/L (20.0-26.0) H 10/24/16 08:30 Base Excess 4.6 mmol/L (-3.0-3.0) H 10/24/16 08:30 O2 Saturation 93.0 % (92.0-100.0) 10/24/16 08:30 Danish Test NA 10/24/16 08:30 Vent Rate NA 10/24/16 08:30 Inspired O2 37 10/24/16 08:30 Tidal Volume NA 10/24/16 08:30 PEEP NA 10/24/16 08:30 Pressure (ins/psv/peep) NA 10/24/16 08:30 Critical Value SH 10/24/16 08:30 Sodium 141 mEq/L (136-145) 11/06/16 05:05 Potassium 3.5 mEq/L (3.5-5.1) 11/06/16 05:05 Chloride 105 mEq/L (98-107) 11/06/16 05:05 Carbon Dioxide 31.7 mEq/L (21.0-31.0) H 11/06/16 05:05 Anion Gap 7.8 (7.0-16.0) 11/06/16 05:05 BUN 29 mg/dL (7-25) H 11/06/16 05:05 Creatinine 1.1 mg/dL (0.7-1.3) 11/06/16 05:05 Est GFR ( Amer) TNP 11/06/16 05:05 Est GFR (Non-Af Amer) TNP 11/06/16 05:05 BUN/Creatinine Ratio 26.4 11/06/16 05:05 Glucose 85 mg/dL (70-105) 11/06/16 05:05 POC Glucose 106 MG/DL (70 - 105) H 11/05/16 06:46 Whole Bld Lactic Acid 1.51 mmol/L (0.60-2.00) 10/22/16 10:55 Calcium 8.7 mg/dL (8.6-10.3) 11/06/16 05:05 Magnesium 2.2 mg/dL (1.9-2.7) 10/23/16 06:52 Iron 35 ug/dL (38-169) L 11/04/16 16:10 TIBC 348 ug/dL (250-450) 11/04/16 16:10 Iron Saturation 10 % (15-55) L 11/04/16 16:10 Unsaturated IBC 313 ug/dL (111-343) 11/04/16 16:10 Total Bilirubin 0.8 mg/dL (0.3-1.0) 11/06/16 05:05 Direct Bilirubin 0.10 mg/dL (0.0-0.2) 10/23/16 06:52 AST 75 U/L (13-39) H 11/06/16 05:05 ALT 39 U/L (7-52) 11/06/16 05:05 Alkaline Phosphatase 36 U/L (34-104) 11/06/16 05:05 Ammonia 35 umol/L (16-53) 10/25/16 07:20 Troponin I 0.63 ng/mL (0.01-0.05) H* 10/23/16 11:00 B-Natriuretic Peptide 1010.0 pg/mL (5.0-100.0) H 11/05/16 10:55 Total Protein 6.4 gm/dL (6.0-8.3) 11/06/16 05:05 Albumin 3.2 gm/dL (4.2-5.5) L 11/06/16 05:05 Globulin 3.2 gm/dL 11/06/16 05:05 Albumin/Globulin Ratio 1.0 (1.0-1.8) 11/06/16 05:05 Vitamin B12 888 pg/mL (211-946) 11/04/16 16:10 Folic Acid 15.0 ng/mL (>3.0) 11/04/16 16:10 Free T4 1.42 ng/dL (0.82-1.77) 10/23/16 06:52 Free T3 2.3 pg/mL (2.0-4.4) 10/23/16 06:52 TSH 3.23 uIU/ml (0.34-5.60) 10/27/16 07:30 Urine Source [place] 11/04/16 14:30 Urine Color RED 11/04/16 14:30 Urine Clarity BLOODY (CLEAR) 11/04/16 14:30 Urine pH 6.0 11/04/16 14:30 Ur Specific [place] 1.020 (1.005-1.030) 11/04/16 14:30 Urine Protein >300 mg/dL (NEGATIVE) H 11/04/16 14:30 Urine Glucose (UA) NEGATIVE mg/dL (NEGATIVE) 11/04/16 14:30 Urine Ketones NEGATIVE mg/dL (NEGATIVE) 11/04/16 14:30 Urine Blood LARGE (NEGATIVE) H 11/04/16 14:30 Urine Nitrate NEGATIVE (NEGATIVE) 11/04/16 14:30 Urine Bilirubin NEGATIVE (NEGATIVE) 11/04/16 14:30 Urine Urobilinogen 0.2 E.U./dL (0.2 - 1.0) 11/04/16 14:30 Ur Leukocyte Esterase TRACE (NEGATIVE) H 11/04/16 14:30 Urine RBC >100 /hpf (0-5) H 11/04/16 14:30 Urine WBC 2-5 /hpf (0-5) H 11/04/16 14:30 Ur Epithelial Cells OCCASIONAL /lpf (FEW) 11/04/16 14:30 Urine Bacteria OCCASIONAL /hpf (NONE SEEN) 11/04/16 14:30 Stool Occult Blood NEGATIVE (NEGATIVE) 11/02/16 03:05 RPR NONREACTIVE (NONREACTIVE) 10/27/16 07:30 Influenza A (Rapid) NEG FOR INF A 10/24/16 06:30 Influenza B (Rapid) NEG FOR INF B 10/24/16 06:30 Blood Type A POSITIVE 11/04/16 16:10 Antibody Screen NEGATIVE 11/04/16 16:10 Crossmatch See Detail 11/04/16 16:10 - Physical Exam Vitals and I&O: Vital Signs Temp 97.4 F 11/06/16 11:38 Pulse 74 11/06/16 11:38 Resp 18 11/06/16 11:38 BP 120/54 11/06/16 11:38 Pulse Ox 96 11/06/16 11:38 Intake & Output 11/05/16 11/06/16 11/06/16 18:59 06:59 18:59 Intake Total 840 Output Total 600 Balance 240 Intake: Oral 840 Output: Urine 600 Other: # Voids 2 # Bowel Movements 1 Stool Characteristics Soft Soft Black Black Green Green Active Medications: Current Medications Acetaminophen (Tylenol 650mg/20.3ml Suspension) 650 mg PO Q4H PRN PRN Reason: Abdominal Pain Stop: 12/26/16 14:24 Last Admin: 11/05/16 22:48 Dose: 650 mg Albuterol/Ipratropium (Duoneb Neb) 3 ml HHN Q2H PRN PRN Reason: Respiratory Distress Stop: 12/21/16 23:29 Last Admin: 10/23/16 03:05 Dose: 3 ml Albuterol/Ipratropium (Duoneb Neb) 3 ml HHN Q4HRT [facility] Stop: 12/22/16 02:59 Last Admin: 11/06/16 11:22 Dose: 3 ml Amiodarone HCl (Cordarone) 200 mg PO DAILY [facility] Stop: 12/25/16 20:59 Last Admin: 11/06/16 09:06 Dose: 200 mg Budesonide (Pulmicort) 0.5 mg HHN BIDRT [facility] Stop: 12/22/16 06:59 Last Admin: 11/06/16 07:35 Dose: 0.5 mg Digoxin (Lanoxin) 0.125 mg PO DAILY [facility] Stop: 01/04/17 08:59 Last Admin: 11/06/16 09:06 Dose: 0.125 mg Diltiazem HCl (Cardizem) 20 mg IVP Q4HR PRN PRN Reason: HR >120 Stop: 12/22/16 10:49 Last Admin: 10/29/16 06:10 Dose: 20 mg Diltiazem HCl (Cardizem) 60 mg PO Q6HR [facility] Stop: 12/27/16 11:59 Last Admin: 11/06/16 06:11 Dose: 60 mg Furosemide (Lasix) 40 mg IVP BID [facility] Stop: 12/22/16 16:59 Last Admin: 11/06/16 09:05 Dose: 40 mg Dextrose/Sodium Chloride (D5-0.45ns) 1,000 mls @ 60 mls/hr IV .[id number] [facility] Stop: 01/04/17 13:22 Last Admin: 11/05/16 23:21 Dose: 60 mls/hr Lactobacillus Rhamnosus (Culturelle) 1 each PO DAILY [facility] Stop: 12/27/16 08:59 Last Admin: 11/06/16 09:06 Dose: 1 each Lorazepam (Ativan) 1 mg IVP Q4HR PRN; Protocol PRN Reason: Agitation Stop: 12/30/16 12:11 Last Admin: 11/05/16 01:48 Dose: 1 mg Miscellaneous (Probiotic Screen) 1 ea MC PRN PRN PRN Reason: PROTOCOL Stop: 12/26/16 16:17 Pantoprazole Sodium (Protonix) 40 mg PO QDAC [facility] Stop: 01/04/17 10:14 Last Admin: 11/06/16 07:41 Dose: 40 mg Polyethylene Glycol (Miralax) 17 gm PO DAILY [facility] Stop: 12/29/16 08:59 Last Admin: 11/06/16 09:05 Dose: 17 gm Quetiapine Fumarate (Seroquel) 12.5 mg PO Q8HR PRN; Protocol PRN Reason: Agitation Stop: 01/02/17 12:59 Last Admin: 11/05/16 12:55 Dose: 12.5 mg Tamsulosin HCl (Flomax) 0.4 mg PO HS [facility] Stop: 12/21/16 20:59 Last Admin: 11/05/16 22:48 Dose: 0.4 mg General: Alert, Oriented x3 HEENT: Atraumatic, PERRLA Neck: Supple, no JVD, no Thyromegaly Cardiovascular: Regular rate, Normal S1, Normal S2 Lungs: Clear to auscultation, Normal air movement Abdomen: Bowel sounds, Soft, Obese, no Tender, no Hepatomegaly Extremities: Other (left 2nd toe wound is healing.), no Clubbing, no Cyanosis, no Edema Neurological: Strength at 5/5 X4 ext Skin: no Rash Psych/Mental Status: Mental status NL - Procedures Procedures: Procedures Procedure Code Date REPAIR FACE SKIN, EXTERNAL APPROACH [id number] 10/14/15 RPR S/N/AX/GEN/TRNK 2.5CM/< 49435 10/14/15 Assessment/Plan - Problem List Patient Problems: All Active Problems BILATERAL LEG PAIN AND UNABLE TO AMBULAT (Acute) Lumbar spine strain (Acute) - Assessment Assessment: 1. UTI- ESBL E coli. treated. 2. SVT , afib. 3. Dementia. 4. HTN. 5. Leukocytosis. Reactive to hematuria. Improved. - Plan Plan: CPM.
--- NOTE | 2016-11-06 13:08 | Infectious Disease Prog Note ---
Infectious Disease Subjective - Review of Systems Service Date: 11/06/16 Subjective: There is no fever, no chills. Continues to have hematuria. Infectious Disease Objective - Results Result Diagrams: 11/06/16 05:05 11/06/16 05:05 Recent Labs: Laboratory Last Values WBC 9.6 Th/cmm (4.8-10.8) 11/06/16 05:05 Corrected WBC (auto) 11.2 Th/cmm 10/23/16 06:52 RBC 3.24 Mil/cmm (3.80-5.80) L 11/06/16 05:05 Hgb 8.3 gm/dL (12.6-17.4) L 11/06/16 05:05 Plasma Hgb 7.8 mg/dL (0.0-4.9) H 10/23/16 06:52 Hct 25.3 % (39.0-49.0) L 11/06/16 05:05 MCV 78.1 fl (80-99) L 11/06/16 05:05 MCH 25.6 pg (27.0-31.0) L 11/06/16 05:05 MCHC Differential 32.8 pg (28.0-36.0) 11/06/16 05:05 RDW 24.2 % (11.5-20.0) H 11/06/16 05:05 Plt Count 215 Th/cmm (150-400) 11/06/16 05:05 MPV 9.0 fl 11/06/16 05:05 Band Neutrophils % 1 % (0-10) 11/06/16 05:05 Neutrophils (Manual) 67 % (40-80) 11/06/16 05:05 Lymphocytes 26 % (20-50) 11/06/16 05:05 Monocytes 4 % (2-10) 11/06/16 05:05 Eosinophils 3 % (0-5) 11/05/16 10:55 Basophils 0 % (0-3) 11/04/16 23:10 Metamyelocytes 1 % (0-0) H 11/05/16 10:55 Myelocytes 2 % 11/06/16 05:05 Nucleated RBCs 4.0 % (0-0) H 10/23/16 06:52 Atypical Lymphocytes 1 % 11/05/16 10:55 Hypochromia 1+ 11/04/16 14:16 Platelet Estimate ADEQUATE (NORMAL) 11/06/16 05:05 Platelet Morphology PLATELET CLUMPS SEEN (NORMAL) 11/06/16 05:05 Polychromasia 1+ 11/06/16 05:05 Anisocytosis 2+ 11/06/16 05:05 Microcytosis 1+ 11/06/16 05:05 RBC Morph Micro Appear ABNORMAL (NORMAL) 11/06/16 05:05 Total Retics Counted 2.0 % (0.5-1.5) H 11/04/16 16:10 Absolute Retic 61.8 Th/cmm 11/04/16 16:10 Corrected Retic Count 1.0 % (0.5-1.5) 11/04/16 16:10 PT 21.6 SECONDS (9.5-11.5) H 11/04/16 05:45 INR 2.08 (0.5-1.4) H 11/04/16 05:45 Specimen Source Arterial 10/24/16 08:30 Sample Site RB 10/24/16 08:30 pH 7.42 (7.35-7.45) 10/24/16 08:30 pCO2 46.0 mmHg (35.0-45.0) H 10/24/16 08:30 pO2 65.0 mmHg (80.0-100.0) L 10/24/16 08:30 HCO3 29.8 mmol/L (20.0-26.0) H 10/24/16 08:30 Base Excess 4.6 mmol/L (-3.0-3.0) H 10/24/16 08:30 O2 Saturation 93.0 % (92.0-100.0) 10/24/16 08:30 Danish Test NA 10/24/16 08:30 Vent Rate NA 10/24/16 08:30 Inspired O2 37 10/24/16 08:30 Tidal Volume NA 10/24/16 08:30 PEEP NA 10/24/16 08:30 Pressure (ins/psv/peep) NA 10/24/16 08:30 Critical Value SH 10/24/16 08:30 Sodium 141 mEq/L (136-145) 11/06/16 05:05 Potassium 3.5 mEq/L (3.5-5.1) 11/06/16 05:05 Chloride 105 mEq/L (98-107) 11/06/16 05:05 Carbon Dioxide 31.7 mEq/L (21.0-31.0) H 11/06/16 05:05 Anion Gap 7.8 (7.0-16.0) 11/06/16 05:05 BUN 29 mg/dL (7-25) H 11/06/16 05:05 Creatinine 1.1 mg/dL (0.7-1.3) 11/06/16 05:05 Est GFR ( Amer) TNP 11/06/16 05:05 Est GFR (Non-Af Amer) TNP 11/06/16 05:05 BUN/Creatinine Ratio 26.4 11/06/16 05:05 Glucose 85 mg/dL (70-105) 11/06/16 05:05 POC Glucose 106 MG/DL (70 - 105) H 11/05/16 06:46 Whole Bld Lactic Acid 1.51 mmol/L (0.60-2.00) 10/22/16 10:55 Calcium 8.7 mg/dL (8.6-10.3) 11/06/16 05:05 Magnesium 2.2 mg/dL (1.9-2.7) 10/23/16 06:52 Iron 35 ug/dL (38-169) L 11/04/16 16:10 TIBC 348 ug/dL (250-450) 11/04/16 16:10 Iron Saturation 10 % (15-55) L 11/04/16 16:10 Unsaturated IBC 313 ug/dL (111-343) 11/04/16 16:10 Total Bilirubin 0.8 mg/dL (0.3-1.0) 11/06/16 05:05 Direct Bilirubin 0.10 mg/dL (0.0-0.2) 10/23/16 06:52 AST 75 U/L (13-39) H 11/06/16 05:05 ALT 39 U/L (7-52) 11/06/16 05:05 Alkaline Phosphatase 36 U/L (34-104) 11/06/16 05:05 Ammonia 35 umol/L (16-53) 10/25/16 07:20 Troponin I 0.63 ng/mL (0.01-0.05) H* 10/23/16 11:00 B-Natriuretic Peptide 1010.0 pg/mL (5.0-100.0) H 11/05/16 10:55 Total Protein 6.4 gm/dL (6.0-8.3) 11/06/16 05:05 Albumin 3.2 gm/dL (4.2-5.5) L 11/06/16 05:05 Globulin 3.2 gm/dL 11/06/16 05:05 Albumin/Globulin Ratio 1.0 (1.0-1.8) 11/06/16 05:05 Vitamin B12 888 pg/mL (211-946) 11/04/16 16:10 Folic Acid 15.0 ng/mL (>3.0) 11/04/16 16:10 Free T4 1.42 ng/dL (0.82-1.77) 10/23/16 06:52 Free T3 2.3 pg/mL (2.0-4.4) 10/23/16 06:52 TSH 3.23 uIU/ml (0.34-5.60) 10/27/16 07:30 Urine Source [place] 11/04/16 14:30 Urine Color RED 11/04/16 14:30 Urine Clarity BLOODY (CLEAR) 11/04/16 14:30 Urine pH 6.0 11/04/16 14:30 Ur Specific [place] 1.020 (1.005-1.030) 11/04/16 14:30 Urine Protein >300 mg/dL (NEGATIVE) H 11/04/16 14:30 Urine Glucose (UA) NEGATIVE mg/dL (NEGATIVE) 11/04/16 14:30 Urine Ketones NEGATIVE mg/dL (NEGATIVE) 11/04/16 14:30 Urine Blood LARGE (NEGATIVE) H 11/04/16 14:30 Urine Nitrate NEGATIVE (NEGATIVE) 11/04/16 14:30 Urine Bilirubin NEGATIVE (NEGATIVE) 11/04/16 14:30 Urine Urobilinogen 0.2 E.U./dL (0.2 - 1.0) 11/04/16 14:30 Ur Leukocyte Esterase TRACE (NEGATIVE) H 11/04/16 14:30 Urine RBC >100 /hpf (0-5) H 11/04/16 14:30 Urine WBC 2-5 /hpf (0-5) H 11/04/16 14:30 Ur Epithelial Cells OCCASIONAL /lpf (FEW) 11/04/16 14:30 Urine Bacteria OCCASIONAL /hpf (NONE SEEN) 11/04/16 14:30 Stool Occult Blood NEGATIVE (NEGATIVE) 11/02/16 03:05 RPR NONREACTIVE (NONREACTIVE) 10/27/16 07:30 Influenza A (Rapid) NEG FOR INF A 10/24/16 06:30 Influenza B (Rapid) NEG FOR INF B 10/24/16 06:30 Blood Type A POSITIVE 11/04/16 16:10 Antibody Screen NEGATIVE 11/04/16 16:10 Crossmatch See Detail 11/04/16 16:10 - Physical Exam Vitals and I&O: Vital Signs Temp 97.4 F 11/06/16 11:38 Pulse 74 11/06/16 11:38 Resp 18 11/06/16 11:38 BP 120/54 11/06/16 11:38 Pulse Ox 96 11/06/16 11:38 Intake & Output 11/05/16 11/06/16 11/06/16 18:59 06:59 18:59 Intake Total 840 Output Total 600 Balance 240 Intake: Oral 840 Output: Urine 600 Other: # Voids 2 # Bowel Movements 1 Stool Characteristics Soft Soft Black Black Green Green Active Medications: Current Medications Acetaminophen (Tylenol 650mg/20.3ml Suspension) 650 mg PO Q4H PRN PRN Reason: Abdominal Pain Stop: 12/26/16 14:24 Last Admin: 11/05/16 22:48 Dose: 650 mg Albuterol/Ipratropium (Duoneb Neb) 3 ml HHN Q2H PRN PRN Reason: Respiratory Distress Stop: 12/21/16 23:29 Last Admin: 10/23/16 03:05 Dose: 3 ml Albuterol/Ipratropium (Duoneb Neb) 3 ml HHN Q4HRT [facility] Stop: 12/22/16 02:59 Last Admin: 11/06/16 11:22 Dose: 3 ml Amiodarone HCl (Cordarone) 200 mg PO DAILY [facility] Stop: 12/25/16 20:59 Last Admin: 11/06/16 09:06 Dose: 200 mg Budesonide (Pulmicort) 0.5 mg HHN BIDRT [facility] Stop: 12/22/16 06:59 Last Admin: 11/06/16 07:35 Dose: 0.5 mg Digoxin (Lanoxin) 0.125 mg PO DAILY [facility] Stop: 01/04/17 08:59 Last Admin: 11/06/16 09:06 Dose: 0.125 mg Diltiazem HCl (Cardizem) 20 mg IVP Q4HR PRN PRN Reason: HR >120 Stop: 12/22/16 10:49 Last Admin: 10/29/16 06:10 Dose: 20 mg Diltiazem HCl (Cardizem) 60 mg PO Q6HR [facility] Stop: 12/27/16 11:59 Last Admin: 11/06/16 06:11 Dose: 60 mg Furosemide (Lasix) 40 mg IVP BID [facility] Stop: 12/22/16 16:59 Last Admin: 11/06/16 09:05 Dose: 40 mg Dextrose/Sodium Chloride (D5-0.45ns) 1,000 mls @ 60 mls/hr IV .[id number] [facility] Stop: 01/04/17 13:22 Last Admin: 11/05/16 23:21 Dose: 60 mls/hr Lactobacillus Rhamnosus (Culturelle) 1 each PO DAILY [facility] Stop: 12/27/16 08:59 Last Admin: 11/06/16 09:06 Dose: 1 each Lorazepam (Ativan) 1 mg IVP Q4HR PRN; Protocol PRN Reason: Agitation Stop: 12/30/16 12:11 Last Admin: 11/05/16 01:48 Dose: 1 mg Miscellaneous (Probiotic Screen) 1 ea MC PRN PRN PRN Reason: PROTOCOL Stop: 12/26/16 16:17 Pantoprazole Sodium (Protonix) 40 mg PO QDAC [facility] Stop: 01/04/17 10:14 Last Admin: 11/06/16 07:41 Dose: 40 mg Polyethylene Glycol (Miralax) 17 gm PO DAILY [facility] Stop: 12/29/16 08:59 Last Admin: 11/06/16 09:05 Dose: 17 gm Quetiapine Fumarate (Seroquel) 12.5 mg PO Q8HR PRN; Protocol PRN Reason: Agitation Stop: 01/02/17 12:59 Last Admin: 11/05/16 12:55 Dose: 12.5 mg Tamsulosin HCl (Flomax) 0.4 mg PO HS [facility] Stop: 12/21/16 20:59 Last Admin: 11/05/16 22:48 Dose: 0.4 mg General: no acute distress, well developed, well nourished HEENT: atraumatic, normocephalic Neck: supple, no thyromegaly, no lymphadenopathy Cardiovascular: S1S2, regular Lungs: clear to auscultation bilaterally, clear to percussion Abdomen: soft, no tender, no distended Extremities: no cyanosis, no clubbing, no edema Neurological: awake, alert, oriented Skin: intact - Procedures Procedures: Procedures Procedure Code Date REPAIR FACE SKIN, EXTERNAL APPROACH [id number] 10/14/15 RPR S/N/AX/GEN/TRNK 2.5CM/< 77179 10/14/15 Infectious Disease Assmt/Plan - Problem List Patient Problems: All Active Problems BILATERAL LEG PAIN AND UNABLE TO AMBULAT (Acute) Lumbar spine strain (Acute) - Assessment Assessment: 1. UTI- ESBL E coli. treated. 2. SVT , afib. 3. Dementia. 4. HTN. 5. Leukocytosis. Reactive to hematuria. Improved. - Plan Plan: CPM.
[2016-11-06] MEDS: D5-0.45NS 1,000 ML IV SCH (16:23)
--- NOTE | 2016-11-06 23:40 | Progress Notes ---
SUBJECTIVE: The patient was seen, chart reviewed, and discussed with staff. This is an 86-year-old male, currently confused, disoriented, still in restraints, but staff noting he has been calmer, still ____, however, less agitated. The patient is AO x 0 on exam, poor historian, not answering any questions appropriately. No medication side effects noted. No EPS. The patient does not appear to be sedated. MENTAL STATUS EXAMINATION: Essentially, no changes from my exams in the few days prior, remains disoriented and confused. PROVISIONAL DIAGNOSIS: Likely delirium, rule out dementia. RECOMMENDATIONS AND PLAN: Continue to monitor. Continue p.r.n. medications. [facility]# [id number]
--- NOTE | 2016-11-07 00:48 | Progress Notes ---
PROBLEMS: 1. Acute respiratory failure, improved/resolved. 2. Psychosis, persistent. 3. Effusion ____ much better. SYMPTOMS: Still periodically confused, disoriented. No specific other symptoms otherwise, though patient is quite confused, disoriented. PHYSICAL EXAMINATION: VITAL SIGNS: Temperature is 98.2, respirations 18, saturation 100% on 2 liters of oxygen. NECK: Veins not visualized. CHEST: Shows clear with occasional clerical secretary noise otherwise unremarkable. Electrolytes are okay. LABORATORY DATA: The patient's albumin is 3.2. ASSESSMENT: The patient clinically slowly gradual improving. PLANS AND SUGGESTIONS: We will go ahead and continue current treatment, placement issue. We will check the need for O2 in the next 2-3 days' etc., and go from there. JOB# [id number]
[2016-11-07] MEDS: Albuterol/Ipratropium Neb 3 ML AERS HHN SCH ×6 (02:15→23:08)
[2016-11-07] MEDS: Diltiazem 30 mg Tab PO SCH ×3 (06:13→18:25)
[2016-11-07 06:17] LABS: ANION GAP 6.2 (7.0-16.0); BUN - UREA NITROGEN 21 mg/dL (7-25); CALCIUM SERUM 8.8 mg/dL (8.6-10.3); CHLORIDE 103 mEq/L (98-107); GLUCOSE 94 mg/dL (70-105); POTASSIUM SERUM 3.2 mEq/L (3.5-5.1); SODIUM SERUM 138 mEq/L (136-145)
[2016-11-07] MEDS: Budesonide 0.5 Mg/2 mL Ud HHN SCH ×2 (07:35→19:10)
[2016-11-07] MEDS: POLYETHYLENE GLYCOL 3350 17 GM PACK PO SCH (08:29)
[2016-11-07] MEDS: Lactobacillus Rhamnosus 10 Billion CFU Capsule PO SCH (08:30)
[2016-11-07] MEDS: Pantoprazole 40 mg EC Tab PO SCH (08:31)
[2016-11-07] MEDS ORDERED: Potassium Chloride 20 mEq ER Tab PO ONE (13:32)
[2016-11-07] MEDS: D5-0.45NS 1,000 ML IV SCH ×3 (16:35→16:46)
--- NOTE | 2016-11-07 18:11 | Infectious Disease Prog Note ---
Infectious Disease Subjective - Review of Systems Service Date: 11/07/16 Subjective: There is no fever, no chills. Continues to have hematuria. Infectious Disease Objective - Results Result Diagrams: 11/06/16 05:05 11/07/16 05:05 Recent Labs: Laboratory Last Values WBC 9.6 Th/cmm (4.8-10.8) 11/06/16 05:05 Corrected WBC (auto) 11.2 Th/cmm 10/23/16 06:52 RBC 3.24 Mil/cmm (3.80-5.80) L 11/06/16 05:05 Hgb 8.3 gm/dL (12.6-17.4) L 11/06/16 05:05 Plasma Hgb 7.8 mg/dL (0.0-4.9) H 10/23/16 06:52 Hct 25.3 % (39.0-49.0) L 11/06/16 05:05 MCV 78.1 fl (80-99) L 11/06/16 05:05 MCH 25.6 pg (27.0-31.0) L 11/06/16 05:05 MCHC Differential 32.8 pg (28.0-36.0) 11/06/16 05:05 RDW 24.2 % (11.5-20.0) H 11/06/16 05:05 Plt Count 215 Th/cmm (150-400) 11/06/16 05:05 MPV 9.0 fl 11/06/16 05:05 Band Neutrophils % 1 % (0-10) 11/06/16 05:05 Neutrophils (Manual) 67 % (40-80) 11/06/16 05:05 Lymphocytes 26 % (20-50) 11/06/16 05:05 Monocytes 4 % (2-10) 11/06/16 05:05 Eosinophils 3 % (0-5) 11/05/16 10:55 Basophils 0 % (0-3) 11/04/16 23:10 Metamyelocytes 1 % (0-0) H 11/05/16 10:55 Myelocytes 2 % 11/06/16 05:05 Nucleated RBCs 4.0 % (0-0) H 10/23/16 06:52 Atypical Lymphocytes 1 % 11/05/16 10:55 Hypochromia 1+ 11/04/16 14:16 Platelet Estimate ADEQUATE (NORMAL) 11/06/16 05:05 Platelet Morphology PLATELET CLUMPS SEEN (NORMAL) 11/06/16 05:05 Polychromasia 1+ 11/06/16 05:05 Anisocytosis 2+ 11/06/16 05:05 Microcytosis 1+ 11/06/16 05:05 RBC Morph Micro Appear ABNORMAL (NORMAL) 11/06/16 05:05 Total Retics Counted 2.0 % (0.5-1.5) H 11/04/16 16:10 Absolute Retic 61.8 Th/cmm 11/04/16 16:10 Corrected Retic Count 1.0 % (0.5-1.5) 11/04/16 16:10 PT 21.6 SECONDS (9.5-11.5) H 11/04/16 05:45 INR 2.08 (0.5-1.4) H 11/04/16 05:45 Specimen Source Arterial 10/24/16 08:30 Sample Site RB 10/24/16 08:30 pH 7.42 (7.35-7.45) 10/24/16 08:30 pCO2 46.0 mmHg (35.0-45.0) H 10/24/16 08:30 pO2 65.0 mmHg (80.0-100.0) L 10/24/16 08:30 HCO3 29.8 mmol/L (20.0-26.0) H 10/24/16 08:30 Base Excess 4.6 mmol/L (-3.0-3.0) H 10/24/16 08:30 O2 Saturation 93.0 % (92.0-100.0) 10/24/16 08:30 Danish Test NA 10/24/16 08:30 Vent Rate NA 10/24/16 08:30 Inspired O2 37 10/24/16 08:30 Tidal Volume NA 10/24/16 08:30 PEEP NA 10/24/16 08:30 Pressure (ins/psv/peep) NA 10/24/16 08:30 Critical Value SH 10/24/16 08:30 Sodium 138 mEq/L (136-145) 11/07/16 05:05 Potassium 3.2 mEq/L (3.5-5.1) L 11/07/16 05:05 Chloride 103 mEq/L (98-107) 11/07/16 05:05 Carbon Dioxide 32.0 mEq/L (21.0-31.0) H 11/07/16 05:05 Anion Gap 6.2 (7.0-16.0) L 11/07/16 05:05 BUN 21 mg/dL (7-25) 11/07/16 05:05 Creatinine 1.0 mg/dL (0.7-1.3) 11/07/16 05:05 Est GFR ( Amer) TNP 11/07/16 05:05 Est GFR (Non-Af Amer) TNP 11/07/16 05:05 BUN/Creatinine Ratio 21.0 11/07/16 05:05 Glucose 94 mg/dL (70-105) 11/07/16 05:05 POC Glucose 106 MG/DL (70 - 105) H 11/05/16 06:46 Whole Bld Lactic Acid 1.51 mmol/L (0.60-2.00) 10/22/16 10:55 Calcium 8.8 mg/dL (8.6-10.3) 11/07/16 05:05 Magnesium 2.2 mg/dL (1.9-2.7) 10/23/16 06:52 Iron 35 ug/dL (38-169) L 11/04/16 16:10 TIBC 348 ug/dL (250-450) 11/04/16 16:10 Iron Saturation 10 % (15-55) L 11/04/16 16:10 Unsaturated IBC 313 ug/dL (111-343) 11/04/16 16:10 Total Bilirubin 0.8 mg/dL (0.3-1.0) 11/06/16 05:05 Direct Bilirubin 0.10 mg/dL (0.0-0.2) 10/23/16 06:52 AST 75 U/L (13-39) H 11/06/16 05:05 ALT 39 U/L (7-52) 11/06/16 05:05 Alkaline Phosphatase 36 U/L (34-104) 11/06/16 05:05 Ammonia 35 umol/L (16-53) 10/25/16 07:20 Troponin I 0.63 ng/mL (0.01-0.05) H* 10/23/16 11:00 B-Natriuretic Peptide 500.0 pg/mL (5.0-100.0) H 11/07/16 05:05 Total Protein 6.4 gm/dL (6.0-8.3) 11/06/16 05:05 Albumin 3.2 gm/dL (4.2-5.5) L 11/06/16 05:05 Globulin 3.2 gm/dL 11/06/16 05:05 Albumin/Globulin Ratio 1.0 (1.0-1.8) 11/06/16 05:05 Vitamin B12 888 pg/mL (211-946) 11/04/16 16:10 Folic Acid 15.0 ng/mL (>3.0) 11/04/16 16:10 Free T4 1.42 ng/dL (0.82-1.77) 10/23/16 06:52 Free T3 2.3 pg/mL (2.0-4.4) 10/23/16 06:52 TSH 3.23 uIU/ml (0.34-5.60) 10/27/16 07:30 Urine Source [place] 11/04/16 14:30 Urine Color RED 11/04/16 14:30 Urine Clarity BLOODY (CLEAR) 11/04/16 14:30 Urine pH 6.0 11/04/16 14:30 Ur Specific [place] 1.020 (1.005-1.030) 11/04/16 14:30 Urine Protein >300 mg/dL (NEGATIVE) H 11/04/16 14:30 Urine Glucose (UA) NEGATIVE mg/dL (NEGATIVE) 11/04/16 14:30 Urine Ketones NEGATIVE mg/dL (NEGATIVE) 11/04/16 14:30 Urine Blood LARGE (NEGATIVE) H 11/04/16 14:30 Urine Nitrate NEGATIVE (NEGATIVE) 11/04/16 14:30 Urine Bilirubin NEGATIVE (NEGATIVE) 11/04/16 14:30 Urine Urobilinogen 0.2 E.U./dL (0.2 - 1.0) 11/04/16 14:30 Ur Leukocyte Esterase TRACE (NEGATIVE) H 11/04/16 14:30 Urine RBC >100 /hpf (0-5) H 11/04/16 14:30 Urine WBC 2-5 /hpf (0-5) H 11/04/16 14:30 Ur Epithelial Cells OCCASIONAL /lpf (FEW) 11/04/16 14:30 Urine Bacteria OCCASIONAL /hpf (NONE SEEN) 11/04/16 14:30 Stool Occult Blood NEGATIVE (NEGATIVE) 11/02/16 03:05 RPR NONREACTIVE (NONREACTIVE) 10/27/16 07:30 Helicobacter pylori Ab NEGATIVE (NEGATIVE) 11/05/16 09:55 Influenza A (Rapid) NEG FOR INF A 10/24/16 06:30 Influenza B (Rapid) NEG FOR INF B 10/24/16 06:30 Blood Type A POSITIVE 11/04/16 16:10 Antibody Screen NEGATIVE 11/04/16 16:10 Crossmatch See Detail 11/04/16 16:10 - Physical Exam Vitals and I&O: Vital Signs Temp 98.2 F 11/07/16 18:00 Pulse 76 11/07/16 18:00 Resp 19 11/07/16 18:00 BP 147/59 11/07/16 18:00 Pulse Ox 98 11/07/16 15:30 Intake & Output 11/06/16 11/07/16 11/07/16 18:59 06:59 18:59 Intake Total 5336 675 9152 Balance 9640 307 9539 Intake: Intake, IV Amount 1000 1011 D5-0.45NS 1,000 ml @ 60 1000 1011 mls/hr IV .[id number] [facility] Rx #:[id number] Oral 400 400 Other: # Voids 6 Stool Characteristics Soft [place] Active Medications: Current Medications Acetaminophen (Tylenol 650mg/20.3ml Suspension) 650 mg PO Q4H PRN PRN Reason: Abdominal Pain Stop: 12/26/16 14:24 Last Admin: 11/05/16 22:48 Dose: 650 mg Albuterol/Ipratropium (Duoneb Neb) 3 ml HHN Q2H PRN PRN Reason: Respiratory Distress Stop: 12/21/16 23:29 Last Admin: 10/23/16 03:05 Dose: 3 ml Albuterol/Ipratropium (Duoneb Neb) 3 ml HHN Q4HRT [facility] Stop: 12/22/16 02:59 Last Admin: 11/07/16 15:28 Dose: 3 ml Amiodarone HCl (Cordarone) 200 mg PO DAILY [facility] Stop: 12/25/16 20:59 Last Admin: 11/07/16 08:29 Dose: 200 mg Budesonide (Pulmicort) 0.5 mg HHN BIDRT [facility] Stop: 12/22/16 06:59 Last Admin: 11/07/16 07:35 Dose: 0.5 mg Digoxin (Lanoxin) 0.125 mg PO DAILY [facility] Stop: 01/04/17 08:59 Last Admin: 11/07/16 08:31 Dose: 0.125 mg Diltiazem HCl (Cardizem) 20 mg IVP Q4HR PRN PRN Reason: HR >120 Stop: 12/22/16 10:49 Last Admin: 10/29/16 06:10 Dose: 20 mg Diltiazem HCl (Cardizem) 60 mg PO Q6HR [facility] Stop: 12/27/16 11:59 Last Admin: 11/07/16 12:42 Dose: Not Given Furosemide (Lasix) 40 mg IVP BID [facility] Stop: 12/22/16 16:59 Last Admin: 11/07/16 16:29 Dose: 40 mg Dextrose/Sodium Chloride (D5-0.45ns) 1,000 mls @ 60 mls/hr IV .[id number] [facility] Stop: 01/04/17 13:22 Last Admin: 11/07/16 16:46 Dose: 60 mls/hr Lactobacillus Rhamnosus (Culturelle) 1 each PO DAILY [facility] Stop: 12/27/16 08:59 Last Admin: 11/07/16 08:30 Dose: 1 each Lorazepam (Ativan) 1 mg IVP Q4HR PRN; Protocol PRN Reason: Agitation Stop: 12/30/16 12:11 Last Admin: 11/07/16 03:48 Dose: 1 mg Metolazone (Zaroxolyn) 5 mg PO BID [facility] Stop: 01/05/17 16:59 Last Admin: 11/07/16 16:28 Dose: 5 mg Miscellaneous (Probiotic Screen) 1 ea MC PRN PRN PRN Reason: PROTOCOL Stop: 12/26/16 16:17 Pantoprazole Sodium (Protonix) 40 mg PO QDAC [facility] Stop: 01/04/17 10:14 Last Admin: 11/07/16 08:31 Dose: 40 mg Polyethylene Glycol (Miralax) 17 gm PO DAILY [facility] Stop: 12/29/16 08:59 Last Admin: 11/07/16 08:29 Dose: 17 gm Quetiapine Fumarate (Seroquel) 12.5 mg PO Q8HR PRN; Protocol PRN Reason: Agitation Stop: 01/02/17 12:59 Last Admin: 11/05/16 12:55 Dose: 12.5 mg Tamsulosin HCl (Flomax) 0.4 mg PO HS [facility] Stop: 12/21/16 20:59 Last Admin: 11/06/16 21:53 Dose: 0.4 mg General: no acute distress, well developed, well nourished HEENT: atraumatic, normocephalic, PERRLA, EOMI Neck: supple, no thyromegaly, no lymphadenopathy Cardiovascular: S1S2, regular Lungs: clear to auscultation bilaterally, clear to percussion Abdomen: soft, no tender, no distended Extremities: no cyanosis, no clubbing, no edema Neurological: awake, alert, oriented, CN 2-12 intact Skin: intact - Procedures Procedures: Procedures Procedure Code Date REPAIR FACE SKIN, EXTERNAL APPROACH [id number] 10/14/15 RPR S/N/AX/GEN/TRNK 2.5CM/< 52416 10/14/15 Infectious Disease Assmt/Plan - Problem List Patient Problems: All Active Problems BILATERAL LEG PAIN AND UNABLE TO AMBULAT (Acute) Lumbar spine strain (Acute) - Assessment Assessment: 1. UTI- ESBL E coli. treated. 2. SVT , afib. 3. Dementia. 4. HTN. 5. Leukocytosis. Improved. Reactive to hematuria. - Plan Plan: CPM.
[2016-11-08] MEDS: Diltiazem 30 mg Tab PO SCH ×4 (00:55→17:04)
[2016-11-08] MEDS: Albuterol/Ipratropium Neb 3 ML AERS HHN SCH ×5 (03:26→19:45)
--- NOTE | 2016-11-08 06:14 | Progress Notes ---
PROBLEM LIST: 1. Acute pneumonitis, improved. 2. Acute congestive ____heart failure, improved. 3. Cardiac arrhythmia, stable. 4. 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 SYMPTOMS: Nil, periodically answer questions. Most of the time, is confused, disoriented. PHYSICAL EXAMINATION: VITAL SIGNS: The patient's temperature is 98.2, blood pressure 125/67, respirations 19, saturation is 97% on 2 liters. NECK: Veins could not be visualized. CHEST: Shows diminished air entry. No other adventitious breath sounds. HEART: Irregular. LABORATORY DATA: The patient's electrolytes, potassium is 3.2, and albumin is 3.2. ASSESSMENT: The patient clinically appears to be stable and improving. Medically, still lot of psychological issues. PLANS AND SUGGESTIONS: We will continue current treatment and we will discuss with discharge planning and go from there. JOB# [id number]
[2016-11-08] MEDS: Budesonide 0.5 Mg/2 mL Ud HHN SCH ×2 (07:46→19:45)
[2016-11-08 08:22] LABS: INR 1.03 (0.5-1.4); PROTHROMBIN TIME (TEST) 10.2 SECONDS (9.5-11.5)
[2016-11-08 08:32] LABS: ANION GAP 6.4 (7.0-16.0); BUN - UREA NITROGEN 16 mg/dL (7-25); BUN/CREATININE RATIO 14.5; CALCIUM SERUM 8.7 mg/dL (8.6-10.3); CHLORIDE 102 mEq/L (98-107); CREATININE - SERUM 1.1 mg/dL (0.7-1.3); GLUCOSE 91 mg/dL (70-105); POTASSIUM SERUM 3.4 mEq/L (3.5-5.1); SODIUM SERUM 138 mEq/L (136-145)
[2016-11-08] MEDS ORDERED: Magnesium Citrate 1.75 GM/300 mL Bottle PO ONE (09:29)
[2016-11-08] MEDS: POLYETHYLENE GLYCOL 3350 17 GM PACK PO SCH (10:23)
[2016-11-08] MEDS: Lactobacillus Rhamnosus 10 Billion CFU Capsule PO SCH (10:24)
[2016-11-08] MEDS: Pantoprazole 40 mg EC Tab PO SCH (10:24)
--- NOTE | 2016-11-08 11:55 | Diagnostic Imaging Report ---
Right hip (2 views) HISTORY: Pain, trauma No acute bony abnormalities. No fractures. Femoral head exhibits a normal contour. Joint space appears normal. Severe degenerative changes seen within the visualized lower lumbar spine. IMPRESSION: No acute bony abnormalities. In the presence of recent trauma and persistent symptoms, a repeat radiograph in 5-7 days may be helpful for detection of a subtle or occult fracture.
[2016-11-08] MEDS: D5-0.45NS 1,000 ML IV SCH (11:58)
--- NOTE | 2016-11-08 11:59 | Diagnostic Imaging Report ---
Left hip (2 views) HISTORY: Pain, trauma No acute bony abnormalities. No fractures. The femoral head exhibits a normal contour. Joint space appears normal. Severe degenerative changes seen in the visualized lower lumbar spine. IMPRESSION: No acute abnormalities. See above.
--- NOTE | 2016-11-08 12:06 | Diagnostic Imaging Report ---
Sacrum/coccyx (3 views) HISTORY: Pain Severe degenerative changes noted within the lower lumbosacral spine. No acute abnormalities. No fractures. Mild hypertrophic degenerative changes noted about the sacroiliac joints. IMPRESSION: 1. No acute abnormalities 2. Severe degenerative changes in the lumbosacral spine region and mild degenerative changes about the sacroiliac joints.
--- NOTE | 2016-11-08 12:58 | Infectious Disease Prog Note ---
Infectious Disease Subjective - Review of Systems Service Date: 11/08/16 Subjective: There is no fever, no chills. Continues to have hematuria. Infectious Disease Objective - Results Result Diagrams: 11/06/16 05:05 11/08/16 07:55 Recent Labs: Laboratory Last Values WBC 9.6 Th/cmm (4.8-10.8) 11/06/16 05:05 Corrected WBC (auto) 11.2 Th/cmm 10/23/16 06:52 RBC 3.24 Mil/cmm (3.80-5.80) L 11/06/16 05:05 Hgb 8.3 gm/dL (12.6-17.4) L 11/06/16 05:05 Plasma Hgb 7.8 mg/dL (0.0-4.9) H 10/23/16 06:52 Hct 25.3 % (39.0-49.0) L 11/06/16 05:05 MCV 78.1 fl (80-99) L 11/06/16 05:05 MCH 25.6 pg (27.0-31.0) L 11/06/16 05:05 MCHC Differential 32.8 pg (28.0-36.0) 11/06/16 05:05 RDW 24.2 % (11.5-20.0) H 11/06/16 05:05 Plt Count 215 Th/cmm (150-400) 11/06/16 05:05 MPV 9.0 fl 11/06/16 05:05 Band Neutrophils % 1 % (0-10) 11/06/16 05:05 Neutrophils (Manual) 67 % (40-80) 11/06/16 05:05 Lymphocytes 26 % (20-50) 11/06/16 05:05 Monocytes 4 % (2-10) 11/06/16 05:05 Eosinophils 3 % (0-5) 11/05/16 10:55 Basophils 0 % (0-3) 11/04/16 23:10 Metamyelocytes 1 % (0-0) H 11/05/16 10:55 Myelocytes 2 % 11/06/16 05:05 Nucleated RBCs 4.0 % (0-0) H 10/23/16 06:52 Atypical Lymphocytes 1 % 11/05/16 10:55 Hypochromia 1+ 11/04/16 14:16 Platelet Estimate ADEQUATE (NORMAL) 11/06/16 05:05 Platelet Morphology PLATELET CLUMPS SEEN (NORMAL) 11/06/16 05:05 Polychromasia 1+ 11/06/16 05:05 Anisocytosis 2+ 11/06/16 05:05 Microcytosis 1+ 11/06/16 05:05 RBC Morph Micro Appear ABNORMAL (NORMAL) 11/06/16 05:05 Total Retics Counted 2.0 % (0.5-1.5) H 11/04/16 16:10 Absolute Retic 61.8 Th/cmm 11/04/16 16:10 Corrected Retic Count 1.0 % (0.5-1.5) 11/04/16 16:10 PT 10.2 SECONDS (9.5-11.5) 11/08/16 07:55 INR 1.03 (0.5-1.4) 11/08/16 07:55 Specimen Source Arterial 10/24/16 08:30 Sample Site RB 10/24/16 08:30 pH 7.42 (7.35-7.45) 10/24/16 08:30 pCO2 46.0 mmHg (35.0-45.0) H 10/24/16 08:30 pO2 65.0 mmHg (80.0-100.0) L 10/24/16 08:30 HCO3 29.8 mmol/L (20.0-26.0) H 10/24/16 08:30 Base Excess 4.6 mmol/L (-3.0-3.0) H 10/24/16 08:30 O2 Saturation 93.0 % (92.0-100.0) 10/24/16 08:30 Danish Test NA 10/24/16 08:30 Vent Rate NA 10/24/16 08:30 Inspired O2 37 10/24/16 08:30 Tidal Volume NA 10/24/16 08:30 PEEP NA 10/24/16 08:30 Pressure (ins/psv/peep) NA 10/24/16 08:30 Critical Value SH 10/24/16 08:30 Sodium 138 mEq/L (136-145) 11/08/16 07:55 Potassium 3.4 mEq/L (3.5-5.1) L 11/08/16 07:55 Chloride 102 mEq/L (98-107) 11/08/16 07:55 Carbon Dioxide 33.0 mEq/L (21.0-31.0) H 11/08/16 07:55 Anion Gap 6.4 (7.0-16.0) L 11/08/16 07:55 BUN 16 mg/dL (7-25) 11/08/16 07:55 Creatinine 1.1 mg/dL (0.7-1.3) 11/08/16 07:55 Est GFR ( Amer) TNP 11/08/16 07:55 Est GFR (Non-Af Amer) TNP 11/08/16 07:55 BUN/Creatinine Ratio 14.5 11/08/16 07:55 Glucose 91 mg/dL (70-105) 11/08/16 07:55 POC Glucose 106 MG/DL (70 - 105) H 11/05/16 06:46 Whole Bld Lactic Acid 1.51 mmol/L (0.60-2.00) 10/22/16 10:55 Calcium 8.7 mg/dL (8.6-10.3) 11/08/16 07:55 Magnesium 2.2 mg/dL (1.9-2.7) 10/23/16 06:52 Iron 35 ug/dL (38-169) L 11/04/16 16:10 TIBC 348 ug/dL (250-450) 11/04/16 16:10 Iron Saturation 10 % (15-55) L 11/04/16 16:10 Unsaturated IBC 313 ug/dL (111-343) 11/04/16 16:10 Total Bilirubin 0.8 mg/dL (0.3-1.0) 11/06/16 05:05 Direct Bilirubin 0.10 mg/dL (0.0-0.2) 10/23/16 06:52 AST 75 U/L (13-39) H 11/06/16 05:05 ALT 39 U/L (7-52) 11/06/16 05:05 Alkaline Phosphatase 36 U/L (34-104) 11/06/16 05:05 Ammonia 35 umol/L (16-53) 10/25/16 07:20 Troponin I 0.63 ng/mL (0.01-0.05) H* 10/23/16 11:00 B-Natriuretic Peptide 500.0 pg/mL (5.0-100.0) H 11/07/16 05:05 Total Protein 6.4 gm/dL (6.0-8.3) 11/06/16 05:05 Albumin 3.2 gm/dL (4.2-5.5) L 11/06/16 05:05 Globulin 3.2 gm/dL 11/06/16 05:05 Albumin/Globulin Ratio 1.0 (1.0-1.8) 11/06/16 05:05 Vitamin B12 888 pg/mL (211-946) 11/04/16 16:10 Folic Acid 15.0 ng/mL (>3.0) 11/04/16 16:10 Free T4 1.42 ng/dL (0.82-1.77) 10/23/16 06:52 Free T3 2.3 pg/mL (2.0-4.4) 10/23/16 06:52 TSH 3.23 uIU/ml (0.34-5.60) 10/27/16 07:30 Urine Source [place] 11/04/16 14:30 Urine Color RED 11/04/16 14:30 Urine Clarity BLOODY (CLEAR) 11/04/16 14:30 Urine pH 6.0 11/04/16 14:30 Ur Specific [place] 1.020 (1.005-1.030) 11/04/16 14:30 Urine Protein >300 mg/dL (NEGATIVE) H 11/04/16 14:30 Urine Glucose (UA) NEGATIVE mg/dL (NEGATIVE) 11/04/16 14:30 Urine Ketones NEGATIVE mg/dL (NEGATIVE) 11/04/16 14:30 Urine Blood LARGE (NEGATIVE) H 11/04/16 14:30 Urine Nitrate NEGATIVE (NEGATIVE) 11/04/16 14:30 Urine Bilirubin NEGATIVE (NEGATIVE) 11/04/16 14:30 Urine Urobilinogen 0.2 E.U./dL (0.2 - 1.0) 11/04/16 14:30 Ur Leukocyte Esterase TRACE (NEGATIVE) H 11/04/16 14:30 Urine RBC >100 /hpf (0-5) H 11/04/16 14:30 Urine WBC 2-5 /hpf (0-5) H 11/04/16 14:30 Ur Epithelial Cells OCCASIONAL /lpf (FEW) 11/04/16 14:30 Urine Bacteria OCCASIONAL /hpf (NONE SEEN) 11/04/16 14:30 Stool Occult Blood NEGATIVE (NEGATIVE) 11/02/16 03:05 RPR NONREACTIVE (NONREACTIVE) 10/27/16 07:30 Helicobacter pylori Ab NEGATIVE (NEGATIVE) 11/05/16 09:55 Influenza A (Rapid) NEG FOR INF A 10/24/16 06:30 Influenza B (Rapid) NEG FOR INF B 10/24/16 06:30 Blood Type A POSITIVE 11/04/16 16:10 Antibody Screen NEGATIVE 11/04/16 16:10 Crossmatch See Detail 11/04/16 16:10 - Physical Exam Vitals and I&O: Vital Signs Temp 97.4 F 11/08/16 12:00 Pulse 64 11/08/16 12:00 Resp 18 11/08/16 12:00 BP 138/67 11/08/16 12:00 Pulse Ox 96 11/08/16 11:45 Intake & Output 11/07/16 11/08/16 11/08/16 18:59 06:59 18:59 Intake Total 1411 3000 1000 Balance 1411 3000 1000 Intake: Intake, IV Amount 1011 1000 D5-0.45NS 1,000 ml @ 60 1011 1000 mls/hr IV .[id number] [facility] Rx #:[id number] Oral 400 3000 Other: # Voids 6 5 # Bowel Movements 3 Stool Characteristics Liquid Liquid [place] Active Medications: Current Medications Acetaminophen (Tylenol 650mg/20.3ml Suspension) 650 mg PO Q4H PRN PRN Reason: Abdominal Pain Stop: 12/26/16 14:24 Last Admin: 11/05/16 22:48 Dose: 650 mg Albuterol/Ipratropium (Duoneb Neb) 3 ml HHN Q2H PRN PRN Reason: Respiratory Distress Stop: 12/21/16 23:29 Last Admin: 10/23/16 03:05 Dose: 3 ml Albuterol/Ipratropium (Duoneb Neb) 3 ml HHN Q4HRT [facility] Stop: 12/22/16 02:59 Last Admin: 11/08/16 11:23 Dose: 3 ml Amiodarone HCl (Cordarone) 200 mg PO DAILY [facility] Stop: 12/25/16 20:59 Last Admin: 11/08/16 10:24 Dose: Not Given Budesonide (Pulmicort) 0.5 mg HHN BIDRT [facility] Stop: 12/22/16 06:59 Last Admin: 11/08/16 07:46 Dose: 0.5 mg Digoxin (Lanoxin) 0.125 mg PO DAILY [facility] Stop: 01/04/17 08:59 Last Admin: 11/08/16 10:23 Dose: Not Given Diltiazem HCl (Cardizem) 20 mg IVP Q4HR PRN PRN Reason: HR >120 Stop: 12/22/16 10:49 Last Admin: 10/29/16 06:10 Dose: 20 mg Diltiazem HCl (Cardizem) 60 mg PO Q6HR [facility] Stop: 12/27/16 11:59 Last Admin: 11/08/16 12:27 Dose: Not Given Furosemide (Lasix) 40 mg IVP BID [facility] Stop: 12/22/16 16:59 Last Admin: 11/08/16 10:23 Dose: Not Given Dextrose/Sodium Chloride (D5-0.45ns) 1,000 mls @ 60 mls/hr IV .[id number] [facility] Stop: 01/04/17 13:22 Last Admin: 11/08/16 11:58 Dose: 60 mls/hr Lactobacillus Rhamnosus (Culturelle) 1 each PO DAILY [facility] Stop: 12/27/16 08:59 Last Admin: 11/08/16 10:24 Dose: Not Given Lorazepam (Ativan) 1 mg IVP Q4HR PRN; Protocol PRN Reason: Agitation Stop: 12/30/16 12:11 Last Admin: 11/08/16 00:56 Dose: 1 mg Metolazone (Zaroxolyn) 5 mg PO BID [facility] Stop: 01/05/17 16:59 Last Admin: 11/08/16 10:23 Dose: Not Given Miscellaneous (Probiotic Screen) 1 ea MC PRN PRN PRN Reason: PROTOCOL Stop: 12/26/16 16:17 Pantoprazole Sodium (Protonix) 40 mg PO QDAC [facility] Stop: 01/04/17 10:14 Last Admin: 11/08/16 10:24 Dose: Not Given Polyethylene Glycol (Miralax) 17 gm PO DAILY [facility] Stop: 12/29/16 08:59 Last Admin: 11/08/16 10:23 Dose: Not Given Quetiapine Fumarate (Seroquel) 12.5 mg PO Q8HR PRN; Protocol PRN Reason: Agitation Stop: 01/02/17 12:59 Last Admin: 11/07/16 21:29 Dose: 12.5 mg Tamsulosin HCl (Flomax) 0.4 mg PO HS [facility] Stop: 12/21/16 20:59 Last Admin: 11/07/16 21:24 Dose: 0.4 mg General: no acute distress, well developed, well nourished HEENT: atraumatic, normocephalic, PERRLA, EOMI, moist mucous membrane Neck: supple Cardiovascular: S1S2, regular Lungs: clear to auscultation bilaterally, clear to percussion Abdomen: soft, no tender, no distended Extremities: no cyanosis, no clubbing, no edema Neurological: awake, alert Skin: intact - Procedures Procedures: Procedures Procedure Code Date REPAIR FACE SKIN, EXTERNAL APPROACH [id number] 10/14/15 RPR S/N/AX/GEN/TRNK 2.5CM/< 91868 10/14/15 Infectious Disease Assmt/Plan - Problem List Patient Problems: All Active Problems BILATERAL LEG PAIN AND UNABLE TO AMBULAT (Acute) Lumbar spine strain (Acute) - Assessment Assessment: 1. UTI- ESBL E coli. treated. 2. SVT , afib. 3. Dementia. 4. HTN. 5. Leukocytosis. Improved. Reactive to hematuria. - Plan Plan: CPM.
--- NOTE | 2016-11-08 14:25 | Diagnostic Imaging Report ---
Cervical spine (3 views) HISTORY: Pain, trauma Very limited exam as the bodies of C3-6-7 cannot be clearly visualized. Severe degenerative changes are noted with marked hypertrophic bone formation at the C4-5 and C5-6 levels. Marked narrowing the C4-5 interspace. No definite acute abnormalities are seen. No fractures. The prevertebral soft tissues appear normal. Atherosclerotic calcification noted in the carotid artery regions. IMPRESSION: 1. Limited exam as the bodies of C6 and 7 cannot be clearly visualized 2. No obvious acute abnormalities 3. Severe degenerative changes 4. Atherosclerotic vascular changes
--- NOTE | 2016-11-08 14:26 | Diagnostic Imaging Report ---
Thoracolumbar spine (3 views) HISTORY: Pain, trauma There is severe degenerative changes with exuberant hypertrophic spur formation noted about the endplates of all lumbar vertebrae and about the endplates of multiple lower thoracic vertebrae. Marked hypertrophic bony changes noted about the facet joints in the lower lumbar spine. No acute abnormality seen. IMPRESSION: 1. Severe diffuse degenerative changes 2. No definite acute abnormalities
[2016-11-09] MEDS: Diltiazem 30 mg Tab PO SCH ×4 (01:00→17:08)
--- NOTE | 2016-11-09 05:01 | Progress Notes ---
PROBLEM LIST: 1. Acute pneumonia, improved. 2. Acute congestive heart failure, improved. 3. Psychological issue persistent and did pull the [place] out, difficulty in re-inserting. PHYSICAL EXAMINATION: VITAL SIGNS: Temperature is 97.4, blood pressure 138/67, saturation is okay on 2 liters of oxygen. ENT: Shows no new changes. CHEST: Shows clear. LABORATORY DATA: INR again back to normal and potassium is 3.4 and anion gap is 6.4. ASSESSMENT: The patient is clinical status quo, not significantly changed, psychologically major issue. PLANS AND SUGGESTIONS: We will go ahead and continue current treatment and care and plan discussed with case management. JOB# [id number]
[2016-11-09] MEDS: Albuterol/Ipratropium Neb 3 ML AERS HHN SCH ×5 (05:05→15:36)
[2016-11-09 07:23] LABS: MEAN CELL VOLUME 77.6 fl (80-99); MEAN CORPUSCULAR HEMOGLOBIN 25.1 pg (27.0-31.0); MEAN CORPUSCULAR HGB CONC 32.4 pg (28.0-36.0); MEAN PLATELET VOLUME 8.9 fl; RED CELL DISTRIBUTION WIDTH 26.3 % (11.5-20.0)
[2016-11-09 07:26] LABS: INR 1.02 (0.5-1.4); PROTHROMBIN TIME (TEST) 10.1 SECONDS (9.5-11.5)
[2016-11-09] MEDS: Budesonide 0.5 Mg/2 mL Ud HHN SCH (07:37)
[2016-11-09] MEDS: Pantoprazole 40 mg EC Tab PO SCH (07:38)
[2016-11-09 07:39] LABS: CARBON DIOXIDE 32.1 mEq/L (21.0-31.0); CHLORIDE 103 mEq/L (98-107); POTASSIUM SERUM 3.2 mEq/L (3.5-5.1); SODIUM SERUM 142 mEq/L (136-145)
[2016-11-09 07:40] LABS: ANION GAP 10.1 (7.0-16.0); BUN - UREA NITROGEN 15 mg/dL (7-25); BUN/CREATININE RATIO 12.5; CALCIUM SERUM 8.8 mg/dL (8.6-10.3); CREATININE - SERUM 1.2 mg/dL (0.7-1.3); GLUCOSE 93 mg/dL (70-105); HEMATOCRIT 27.9 % (39.0-49.0); PLATELET COUNT 281 Th/cmm (150-400); WHITE BLOOD COUNT 12.6 Th/cmm (4.8-10.8)
[2016-11-09 08:23] LABS: BAND NEUTROPHILE 3 % (0-10); NEUTROPHILS 72 % (40-80); TOTAL CELLS COUNTED 100
[2016-11-09 08:24] LABS: ANISOCYTOSIS 2+; MICROCYTOSIS 1+; PLATELET ESTIMATE ADEQUATE (NORMAL); PLATELET MORPHOLOGY GIANT PLATELETS SEEN (NORMAL); POLYCHROMASIA 1+
[2016-11-09] MEDS: Lactobacillus Rhamnosus 10 Billion CFU Capsule PO SCH (08:42)
[2016-11-09] MEDS: POLYETHYLENE GLYCOL 3350 17 GM PACK PO SCH (08:52)
[2016-11-09] MEDS ORDERED: LIDOCAINE IV ONE (10:30)
[2016-11-09] MEDS ORDERED: POTASSIUM CHLORIDE IV ONE (10:30)
[2016-11-09] MEDS ORDERED: SODIUM CHLORIDE 0.9% IV ONE (10:30)
[2016-11-09] MEDS ORDERED: Potassium Chloride 20 mEq ER Tab PO ONE (11:20)
--- NOTE | 2016-11-09 11:22 | Diagnostic Imaging Report ---
Portable chest x-ray HISTORY: Pain The heart is enlarged. Atherosclerotic calcification seen in the aortic arch. No acute focal pulmonary processes no hilar or mediastinal abnormalities. Arthritic changes noted about the shoulder regions. IMPRESSION: 1. No acute pulmonary processes 2. Cardiomegaly with atherosclerotic vascular changes
[2016-11-09] MEDS ORDERED: Meperidine 25 mg/mL 1mL Syr IVP PRN (13:29)
[2016-11-09] MEDS ORDERED: Lactated Ringer 1,000 ML IV SCH (13:30)
--- NOTE | 2016-11-09 13:42 | Infectious Disease Prog Note ---
Infectious Disease Subjective - Review of Systems Service Date: 11/09/16 Subjective: There is no fever, no chills. Infectious Disease Objective - Results Result Diagrams: 11/09/16 06:25 11/09/16 06:25 Recent Labs: Laboratory Last Values WBC 12.6 Th/cmm (4.8-10.8) H D 11/09/16 06:25 Corrected WBC (auto) 11.2 Th/cmm 10/23/16 06:52 RBC 3.60 Mil/cmm (3.80-5.80) L 11/09/16 06:25 Hgb 9.0 gm/dL (12.6-17.4) L 11/09/16 06:25 Plasma Hgb 7.8 mg/dL (0.0-4.9) H 10/23/16 06:52 Hct 27.9 % (39.0-49.0) L D 11/09/16 06:25 MCV 77.6 fl (80-99) L 11/09/16 06:25 MCH 25.1 pg (27.0-31.0) L 11/09/16 06:25 MCHC Differential 32.4 pg (28.0-36.0) 11/09/16 06:25 RDW 26.3 % (11.5-20.0) H 11/09/16 06:25 Plt Count 281 Th/cmm (150-400) D 11/09/16 06:25 MPV 8.9 fl 11/09/16 06:25 Band Neutrophils % 3 % (0-10) 11/09/16 06:25 Neutrophils (Manual) 72 % (40-80) 11/09/16 06:25 Lymphocytes 14 % (20-50) L 11/09/16 06:25 Monocytes 11 % (2-10) H 11/09/16 06:25 Eosinophils 3 % (0-5) 11/05/16 10:55 Basophils 0 % (0-3) 11/04/16 23:10 Metamyelocytes 1 % (0-0) H 11/05/16 10:55 Myelocytes 2 % 11/06/16 05:05 Nucleated RBCs 4.0 % (0-0) H 10/23/16 06:52 Atypical Lymphocytes 1 % 11/05/16 10:55 Hypochromia 1+ 11/04/16 14:16 Platelet Estimate ADEQUATE (NORMAL) 11/09/16 06:25 Platelet Morphology GIANT PLATELETS SEEN (NORMAL) 11/09/16 06:25 Polychromasia 1+ 11/09/16 06:25 Anisocytosis 2+ 11/09/16 06:25 Microcytosis 1+ 11/09/16 06:25 RBC Morph Micro Appear ABNORMAL (NORMAL) 11/09/16 06:25 Total Retics Counted 2.0 % (0.5-1.5) H 11/04/16 16:10 Absolute Retic 61.8 Th/cmm 11/04/16 16:10 Corrected Retic Count 1.0 % (0.5-1.5) 11/04/16 16:10 PT 10.1 SECONDS (9.5-11.5) 11/09/16 06:25 INR 1.02 (0.5-1.4) 11/09/16 06:25 Specimen Source Arterial 10/24/16 08:30 Sample Site RB 10/24/16 08:30 pH 7.42 (7.35-7.45) 10/24/16 08:30 pCO2 46.0 mmHg (35.0-45.0) H 10/24/16 08:30 pO2 65.0 mmHg (80.0-100.0) L 10/24/16 08:30 HCO3 29.8 mmol/L (20.0-26.0) H 10/24/16 08:30 Base Excess 4.6 mmol/L (-3.0-3.0) H 10/24/16 08:30 O2 Saturation 93.0 % (92.0-100.0) 10/24/16 08:30 Danish Test NA 10/24/16 08:30 Vent Rate NA 10/24/16 08:30 Inspired O2 37 10/24/16 08:30 Tidal Volume NA 10/24/16 08:30 PEEP NA 10/24/16 08:30 Pressure (ins/psv/peep) NA 10/24/16 08:30 Critical Value SH 10/24/16 08:30 Sodium 142 mEq/L (136-145) 11/09/16 06:25 Potassium 3.2 mEq/L (3.5-5.1) L 11/09/16 06:25 Chloride 103 mEq/L (98-107) 11/09/16 06:25 Carbon Dioxide 32.1 mEq/L (21.0-31.0) H 11/09/16 06:25 Anion Gap 10.1 (7.0-16.0) 11/09/16 06:25 BUN 15 mg/dL (7-25) 11/09/16 06:25 Creatinine 1.2 mg/dL (0.7-1.3) 11/09/16 06:25 Est GFR ( Amer) TNP 11/09/16 06:25 Est GFR (Non-Af Amer) TNP 11/09/16 06:25 BUN/Creatinine Ratio 12.5 11/09/16 06:25 Glucose 93 mg/dL (70-105) 11/09/16 06:25 POC Glucose 106 MG/DL (70 - 105) H 11/05/16 06:46 Whole Bld Lactic Acid 1.51 mmol/L (0.60-2.00) 10/22/16 10:55 Calcium 8.8 mg/dL (8.6-10.3) 11/09/16 06:25 Magnesium 2.2 mg/dL (1.9-2.7) 10/23/16 06:52 Iron 35 ug/dL (38-169) L 11/04/16 16:10 TIBC 348 ug/dL (250-450) 11/04/16 16:10 Iron Saturation 10 % (15-55) L 11/04/16 16:10 Unsaturated IBC 313 ug/dL (111-343) 11/04/16 16:10 Total Bilirubin 0.8 mg/dL (0.3-1.0) 11/06/16 05:05 Direct Bilirubin 0.10 mg/dL (0.0-0.2) 10/23/16 06:52 AST 75 U/L (13-39) H 11/06/16 05:05 ALT 39 U/L (7-52) 11/06/16 05:05 Alkaline Phosphatase 36 U/L (34-104) 11/06/16 05:05 Ammonia 35 umol/L (16-53) 10/25/16 07:20 Troponin I 0.63 ng/mL (0.01-0.05) H* 10/23/16 11:00 B-Natriuretic Peptide 500.0 pg/mL (5.0-100.0) H 11/07/16 05:05 Total Protein 6.4 gm/dL (6.0-8.3) 11/06/16 05:05 Albumin 3.2 gm/dL (4.2-5.5) L 11/06/16 05:05 Globulin 3.2 gm/dL 11/06/16 05:05 Albumin/Globulin Ratio 1.0 (1.0-1.8) 11/06/16 05:05 Vitamin B12 888 pg/mL (211-946) 11/04/16 16:10 Folic Acid 15.0 ng/mL (>3.0) 11/04/16 16:10 Free T4 1.42 ng/dL (0.82-1.77) 10/23/16 06:52 Free T3 2.3 pg/mL (2.0-4.4) 10/23/16 06:52 TSH 3.23 uIU/ml (0.34-5.60) 10/27/16 07:30 Urine Source [place] 11/04/16 14:30 Urine Color RED 11/04/16 14:30 Urine Clarity BLOODY (CLEAR) 11/04/16 14:30 Urine pH 6.0 11/04/16 14:30 Ur Specific [place] 1.020 (1.005-1.030) 11/04/16 14:30 Urine Protein >300 mg/dL (NEGATIVE) H 11/04/16 14:30 Urine Glucose (UA) NEGATIVE mg/dL (NEGATIVE) 11/04/16 14:30 Urine Ketones NEGATIVE mg/dL (NEGATIVE) 11/04/16 14:30 Urine Blood LARGE (NEGATIVE) H 11/04/16 14:30 Urine Nitrate NEGATIVE (NEGATIVE) 11/04/16 14:30 Urine Bilirubin NEGATIVE (NEGATIVE) 11/04/16 14:30 Urine Urobilinogen 0.2 E.U./dL (0.2 - 1.0) 11/04/16 14:30 Ur Leukocyte Esterase TRACE (NEGATIVE) H 11/04/16 14:30 Urine RBC >100 /hpf (0-5) H 11/04/16 14:30 Urine WBC 2-5 /hpf (0-5) H 11/04/16 14:30 Ur Epithelial Cells OCCASIONAL /lpf (FEW) 11/04/16 14:30 Urine Bacteria OCCASIONAL /hpf (NONE SEEN) 11/04/16 14:30 Stool Occult Blood NEGATIVE (NEGATIVE) 11/02/16 03:05 RPR NONREACTIVE (NONREACTIVE) 10/27/16 07:30 Helicobacter pylori Ab NEGATIVE (NEGATIVE) 11/05/16 09:55 Influenza A (Rapid) NEG FOR INF A 10/24/16 06:30 Influenza B (Rapid) NEG FOR INF B 10/24/16 06:30 Blood Type A POSITIVE 11/04/16 16:10 Antibody Screen NEGATIVE 11/04/16 16:10 Crossmatch See Detail 11/04/16 16:10 - Physical Exam Vitals and I&O: Vital Signs Temp 98.2 F 11/09/16 12:00 Pulse 67 11/09/16 12:41 Resp 18 11/09/16 12:00 BP 133/61 11/09/16 12:00 Pulse Ox 94 11/09/16 12:00 Intake & Output 11/08/16 11/09/16 11/09/16 18:59 06:59 18:59 Intake Total 1500 300 Balance 1500 300 Intake: Intake, IV Amount 1000 D5-0.45NS 1,000 ml @ 60 1000 mls/hr IV .[id number] [facility] Rx #:[id number] Oral 500 300 Other: # Voids 3 6 # Bowel Movements 2 4 Stool Characteristics Liquid Liquid Brown Active Medications: Current Medications Acetaminophen (Tylenol 650mg/20.3ml Suspension) 650 mg PO Q4H PRN PRN Reason: Abdominal Pain Stop: 12/26/16 14:24 Last Admin: 11/05/16 22:48 Dose: 650 mg Albuterol/Ipratropium (Duoneb Neb) 3 ml HHN Q2H PRN PRN Reason: Respiratory Distress Stop: 12/21/16 23:29 Last Admin: 10/23/16 03:05 Dose: 3 ml Albuterol/Ipratropium (Duoneb Neb) 3 ml HHN Q4HRT [facility] Stop: 12/22/16 02:59 Last Admin: 11/09/16 11:37 Dose: 3 ml Amiodarone HCl (Cordarone) 200 mg PO DAILY [facility] Stop: 12/25/16 20:59 Last Admin: 11/09/16 08:41 Dose: Not Given Budesonide (Pulmicort) 0.5 mg HHN BIDRT [facility] Stop: 12/22/16 06:59 Last Admin: 11/09/16 07:37 Dose: 0.5 mg Digoxin (Lanoxin) 0.125 mg PO DAILY [facility] Stop: 01/04/17 08:59 Last Admin: 11/09/16 08:41 Dose: Not Given Diltiazem HCl (Cardizem) 20 mg IVP Q4HR PRN PRN Reason: HR >120 Stop: 12/22/16 10:49 Last Admin: 10/29/16 06:10 Dose: 20 mg Diltiazem HCl (Cardizem) 60 mg PO Q6HR [facility] Stop: 12/27/16 11:59 Last Admin: 11/09/16 12:41 Dose: Not Given Furosemide (Lasix) 40 mg IVP BID [facility] Stop: 12/22/16 16:59 Last Admin: 11/09/16 08:48 Dose: 40 mg Dextrose/Sodium Chloride (D5-0.45ns) 1,000 mls @ 60 mls/hr IV .[id number] [facility] Stop: 01/04/17 13:22 Last Admin: 11/08/16 11:58 Dose: 60 mls/hr Potassium Chloride 30 meq/Lidocaine HCl 25 mg/ Sodium Chloride 267.5 mls @ 68 mls/hr IV X1 ONE Stop: 11/09/16 14:26 Last Admin: 11/09/16 10:30 Dose: 68 mls/hr Lactated Ringer's (Lactated Ringer) 1,000 mls @ 0 mls/hr IV .Q0M [facility] PRN Reason: TKO Stop: 11/10/16 13:29 Lactobacillus Rhamnosus (Culturelle) 1 each PO DAILY [facility] Stop: 12/27/16 08:59 Last Admin: 11/09/16 08:42 Dose: Not Given Lorazepam (Ativan) 1 mg IVP Q4HR PRN; Protocol PRN Reason: Agitation Stop: 12/30/16 12:11 Last Admin: 11/08/16 00:56 Dose: 1 mg Meperidine HCl (Demerol) 12.5 mg IVP UD PRN PRN Reason: POST-OP PAIN Stop: 11/10/16 13:28 Metolazone (Zaroxolyn) 5 mg PO BID [facility] Stop: 01/05/17 16:59 Last Admin: 11/09/16 08:52 Dose: Not Given Miscellaneous (Probiotic Screen) 1 ea MC PRN PRN PRN Reason: PROTOCOL Stop: 12/26/16 16:17 Ondansetron HCl (Zofran) 4 mg IV X1 PRN PRN Reason: Nausea / Vomiting Stop: 11/10/16 13:28 Pantoprazole Sodium (Protonix) 40 mg PO QDAC [facility] Stop: 01/04/17 10:14 Last Admin: 11/09/16 07:38 Dose: Not Given Polyethylene Glycol (Miralax) 17 gm PO DAILY [facility] Stop: 12/29/16 08:59 Last Admin: 11/09/16 08:52 Dose: Not Given Quetiapine Fumarate (Seroquel) 12.5 mg PO Q8HR PRN; Protocol PRN Reason: Agitation Stop: 01/02/17 12:59 Last Admin: 11/08/16 21:44 Dose: 12.5 mg Tamsulosin HCl (Flomax) 0.4 mg PO HS [facility] Stop: 12/21/16 20:59 Last Admin: 11/08/16 21:44 Dose: 0.4 mg General: no acute distress, well developed, well nourished HEENT: atraumatic, normocephalic, PERRLA, EOMI Neck: supple, no thyromegaly, no lymphadenopathy Cardiovascular: S1S2, regular Lungs: clear to auscultation bilaterally, clear to percussion Abdomen: soft, no tender, no distended Extremities: no cyanosis, no clubbing, no edema Neurological: awake, alert, oriented Skin: intact - Procedures Procedures: Procedures Procedure Code Date EGD BIOPSY SINGLE/MULTIPLE 19014 10/22/16 EXCISION OF STOMACH, ENDO, DIAGN [id number] 10/22/16 REPAIR FACE SKIN, EXTERNAL APPROACH [id number] 10/14/15 RPR S/N/AX/GEN/TRNK 2.5CM/< 58366 10/14/15 Infectious Disease Assmt/Plan - Problem List Patient Problems: All Active Problems BILATERAL LEG PAIN AND UNABLE TO AMBULAT (Acute) Lumbar spine strain (Acute) - Assessment Assessment: 1. UTI- ESBL E coli. treated. 2. SVT , afib. 3. Dementia. 4. HTN. 5. Leukocytosis. Improved. Reactive to hematuria. - Plan Plan: CPM.
[2016-11-09] MEDS ORDERED: Lidocaine 2% Gel 5 mL TP ONE (13:50)
--- NOTE | 2016-11-09 19:43 | Operative Report ---
PROCEDURE PERFORMED: Colonoscopy with polypectomy using biopsy forceps. INDICATION FOR PROCEDURE: Anemia. CONSENT: Informed consent could not be obtained. The patient is not able to sign. It was the consensus of the treating physician that the patient will need it. ANESTHESIA USED: Propofol given by anesthesiologist. PREOPERATIVE DIAGNOSIS: Anemia. POSTOPERATIVE DIAGNOSES: 1. Transverse colon polyp, status post polypectomy using biopsy forceps. 2. Small hemorrhoids. DESCRIPTION OF PROCEDURE: The patient was placed in left lateral position. Digital rectal examination showed internal hemorrhoid. An Olympus colonoscope was inserted through the anus and advanced throughout the colon to the cecum, which was identified by the ileocecal valve and appendiceal orifice. Scope was then withdrawn while examining the 4 quadrants of colonic mucosa and suctioning air from the colon. There were 3 polyps seen in the transverse colon, one was about 4 mm and 2 about 3 mm, all were removed using biopsy forceps. Scope was withdrawn further and no other lesion was seen throughout the colon until the anal canal was reached with scope retroflexed to examine the anal verge and it showed internal hemorrhoids. Scope was then straightened and withdrawn. The patient tolerated the procedure well. There were no immediate postoperative complications. RECOMMENDATIONS: 1. Follow up pathology report. 2. Increase fibers in diet. 3. Continue to monitor H and H and transfuse further if needed. 4. Advance diet. Thank you, Dr. Ross for allowing me to participate in the care of this patient. If you have any further questions, please let me know. JOB# [id number]
--- NOTE | 2016-11-10 00:18 | Progress Notes ---
PROBLEM LIST: 1. Congestive heart failure, improving. 2. Cardiac arrhythmia, stable. 3. Recurrent psychosis, still a periodic problem. PHYSICAL EXAMINATION: GENERAL: Not in any acute distress planning to go for endoscopic exam. VITAL SIGNS: ____ 98.2, blood pressure 133/61, saturation 94. ENT: Shows no new changes. CHEST: Shows occasional rhonchi with diminished air entry. HEART: Regular. ABDOMEN: Soft, nontender. LABORATORY DATA: White count is 12.6, hemoglobin 9 grams and patient's electrolytes, potassium is 3.2. ASSESSMENT: The patient appears to be stabilizing respiratory shankar. PLANS AND SUGGESTIONS: We will continue current treatment. We will check x-ray, need for O2, etc., and go from there. JOB# [id number]
--- NOTE | 2016-11-10 11:37 | Pathology Report ---
[id number] Collection date: 11/09/2016 Surgeon: Dr. Rafael Adkins Specimen Description: Transverse colon polyps Gross Description: Received in formalin are multiple cain soft tissue fragments ranging from 0.1 to 0.2 cm in greatest dimension. Totally submitted in one cassette. Microscopic Description: The histologic sections show colon mucosa with adenomatous glandular changes present consisting of nuclear enlargement and stratification, with mostly tubules formed consistent with benign tubular adenoma. Diagnosis: Benign adenomatous polyp consistent with tubular adenoma (transverse colon polyps). [facility]# [id number] [facility]
--- NOTE | 2016-11-22 01:24 | History & Physical ---
HISTORY OF PRESENT ILLNESS: Weakness, debility, and respiratory distress. HISTORY OF PRESENT ILLNESS: This is a male 86 years of age who may have had an acute myocardial infarction with respiratory distress syndrome, was evaluated at the Emergency Room of [facility] and after evaluation was transferred to ICU for cardiopulmonary evaluation. PAST MEDICAL HISTORY: The patient has had following conditions in the past: 1. 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 2. History of chronic obstructive pulmonary disease with exacerbation and bronchospasm. 3. Hypothyroidism. 4. Coronary artery heart disease with angina. 5. Early dementia. 6. Benign prostatic hypertrophy. 7. 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 8. Chronic illness anemia. FAMILY HISTORY: Devoid of any hereditary diseases. He has had his usual childhood diseases. IMMUNIZATION: He has had his immunizations at the time there were needed socially. ALLERGIES: Denies any known allergies. SOCIAL HISTORY: No history of smoking, alcohol, or drug habituation. There is no medication list at the present time. REVIEW OF SYSTEMS: Weakness, debility, congestion, chest pains, respiratory distress, and abdominal discomfort. His bowel and urinary systems are basically normal and he has some tendency for incontinence. He is off and on confused. PHYSICAL EXAMINATION: GENERAL: The patient appears weak, tired, and pale. He is about 6 feet in height and weighs about 175 pounds. VITAL SIGNS: Pulse 88 and irregular, respirations about 24-26, temperature is 101.2. HEENT: Skull symmetrical. No alopecia. No mass. No abnormal pulsation or bruit. SKIN: Dry with no dermatosis. No petechiae or ecchymosis, no jaundice or discoloration and warm to touch from his fever. The eyes, ears, nose, and throat are basically normal except for atherosclerotic changes at the fundi on funduscopic examination. NECK: Supple. Thyroid is not enlarged. Trachea is midline. Bilateral palpable carotids. No bruits. No supraclavicular venous enlargement. No lymphadenopathy. CHEST: Symmetrical. No gynecomastia. LUNGS: Show inspiratory and expiratory rhonchi with basal rales. CARDIOVASCULAR: Irregular heart rate and rhythm. Cardiac area of dullness ____ large. Points of maximum intensity is outside the left midclavicular line. ABDOMEN: Benign for histologic. No organomegaly. No rebound, guarding, or tenderness. No ascites or shifting dullness. Peristalsis audible on auscultation. The patient has refused any external genitalia, prostate, or rectal exam at this time. EXTREMITIES: Shows 1-2+ pedal edema. Diminished pulses. Negative Homans sign. NEUROLOGIC: Essentially intact. ADMITTING DIAGNOSES: 1. Chest pains with coronary artery heart disease with a possible early acute myocardial infarction. 2. and hypertensive cardiovascular heart disease with early congestive heart failure. SECONDARY DIAGNOSES: Enumerated well in the past history. PLAN: To admit the patient with cardiopulmonary consults and ICU status. JOB# [id number]
--- NOTE | 2016-11-22 05:42 | Discharge Summary ---
CHIEF COMPLAINT: 1. 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 2. Coronary artery heart disease with early acute myocardial infarction. 3. 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 4. Chronic obstructive pulmonary disease, stable. 5. Hypothyroidism, stable. The patient was transferred from ICU to a convalescent facility where he was stabilized and regulated by the cardiopulmonary consultants. The patient's cardiorespiratory status improved tremendously. He was eventually transferred from ICU to a regular floor where he was subsequently admitted to [facility] for continued evaluation and followup for his cardiorespiratory problems with the appropriate medications and also physical therapy. JOB# [id number]
== END 2016-11-09 18:04 | DRG 280 ==
LOC: ER 10:28 → TELE 14:11 → ICU 10-24 06:55 → TELE 11-01 18:40
PROVIDERS: ADMIT Family Medicine; ATTEND Family Medicine
PROC: 30233N1 Transfusion of Nonautologous Red Blood Cells into Peripheral Vein, Percutaneous Approach (ICD-10-PCS; 2016-10-22)
PROC: 0DB98ZX Excision of Duodenum, Via Natural or Artificial Opening Endoscopic, Diagnostic (ICD-10-PCS; 2016-10-22)
PROC: 0DB68ZX Excision of Stomach, Via Natural or Artificial Opening Endoscopic, Diagnostic (ICD-10-PCS; principal; 2016-11-05)
PROC: 0DBL8ZZ Excision of Transverse Colon, Via Natural or Artificial Opening Endoscopic (ICD-10-PCS; 2016-11-09)
DX: I21.4 Non-ST elevation (NSTEMI) myocardial infarction (principal); I50.33 Acute on chronic diastolic (congestive) heart failure; G93.40 Encephalopathy, unspecified; J18.9 Pneumonia, unspecified organism; F03.90 Unspecified dementia, unspecified severity, without behavioral disturbance, psychotic disturbance, mood disturbance, and anxiety; I42.9 Cardiomyopathy, unspecified; N39.0 Urinary tract infection, site not specified; I11.0 Hypertensive heart disease with heart failure; I47.1 Supraventricular tachycardia; I48.91 Unspecified atrial fibrillation; D50.9 Iron deficiency anemia, unspecified; E03.9 Hypothyroidism, unspecified; N40.0 Benign prostatic hyperplasia without lower urinary tract symptoms; E78.5 Hyperlipidemia, unspecified; B96.20 Unspecified Escherichia coli [E. coli] as the cause of diseases classified elsewhere; K29.80 Duodenitis without bleeding; K29.70 Gastritis, unspecified, without bleeding; G47.33 Obstructive sleep apnea (adult) (pediatric); J44.9 Chronic obstructive pulmonary disease, unspecified; M19.90 Unspecified osteoarthritis, unspecified site; M81.0 Age-related osteoporosis without current pathological fracture; I25.10 Atherosclerotic heart disease of native coronary artery without angina pectoris; F29 Unspecified psychosis not due to a substance or known physiological condition; K64.9 Unspecified hemorrhoids; Z16.12 Extended spectrum beta lactamase (ESBL) resistance; Z88.8 Allergy status to other drugs, medicaments and biological substances; Z79.82 Long term (current) use of aspirin; Z87.891 Personal history of nicotine dependence
CPT/HCPCS: 36415-UA; 36600-90; 71010-TC; 71250-TC; 72040-TC; 72080-TC; 72220-TC; 74000-TC; 76700-TC; 80048-TC; 80053-TC; 80076-TC; 81001-TC; 82140-TC; 82270-TC; 82607-90; 82746-90; 82803-TC; 82948-90; 83051-90; 83540-90; 83550-90; 83605; 83735-TC; 83880-TC; 84439-90; 84443-TC; 84479-90; 84484-TC; 85007-TC; 85027-TC; 85044-TC; 85610-TC; 86592-TC; 86850-TC; 86900-TC; 86901-TC; 86922-TC; 87070; 87086-90; 87338-TC; 87804-TC; 90779; 93005; 94003; 94640; 94660; 94760; 96379; 97530; A4217; J0696; J1160; J1644; J1940; J1956; J2001; J2060; J2185; J2704; J2930; J3430; J3480; J7030; J7040; J7070; P9016; X3904; X7704; Z7506; Z7610